=== PATIENT | female | born 1955 | race Caucasian/White ===

== ENCOUNTER 2024-12-25 03:57 | Inpatient (IN) | payer MEDICARE, SELFPAY ==
--- OUTSIDE RECORDS SUMMARY | 2023-11-01 03:00 | XMS_ITS ---
Author Organization [facility] Address [address] [place] [address] Care Team Providers Care Cnc Machinist Name Role Phone Nicola James DO Primary Care Provider Unavailab Colten Jones Unavailable [phone] REASON FOR VISIT B/L SIJ and Piriformis [place] PT Encounters Encounter Location Date Provider Diagnosis [facility] [address] [place] [place] [phone] 11/01/2023 Colten Byrne Plan Of Treatment No Information Progress Notes * MARIA GUADALUPE RONDON RDOB:[birth year] (69 yo F)Acc No.[id number]:11/01/2023 Patient:?NELA MARIA GUADALUPE Jamie :?Colten Byrne MDDOB:1955???Age:67 Y???Sex: FemaleDate:4Phone:[phone]:[address], [address], [place], [id number]:Nicola James DO * Images: * Electronic signature of Colten Byrne MD on 12/30/2024 at 12:40 PM ESTSign off status: Pending * Provider: Ramsey Byrne MD Date: 0 11/01/2023 Generated for Printing/Faxing/eTransmitting on:?12/30/2024 12:40 PM EST
--- OUTSIDE RECORDS SUMMARY | 2023-11-01 04:00 | XMS_ITS ---
Author Organization [facility] Address [address] [place] [address] Care Team Providers Care Family Practice Doctor Name Role Phone Nicola James DO Primary Care Provider Unavailab Colten Jones Unavailable [phone] REASON FOR VISIT B/L SIJ and Piriformis [place] PT Encounters Encounter Location Date Provider Diagnosis [facility] [address] [place] [phone] 11/01/2023 Colten Byrne Plan Of Treatment No Information Progress Notes * RONDON MARIA GUADALUPE RDOB:[birth year] (69 yo F)Acc No.[id number]:11/01/2023 Patient:?MARIA GUADALUPE RONDON :?Colten Byrne MDDOB:1955???Age:67 Y???Sex: FemaleDate:4Phone:[phone]:[address], [address], [place], [id number]:Nicola James DO * Images: * Electronic signature of Colten Byrne MD on 12/25/2024 at 02:48 AM EDTSign off status: Pending * Provider: Ramsey Byrne MD Date: 0 11/01/2023 Generated for Printing/Faxing/eTransmitting on:?12/25/2024 02:48 AM EDT
--- OUTSIDE RECORDS SUMMARY | 2024-12-15 15:08 | XMS_ITS | Encounter Summary ---
Author Organization [facility] Address [address] [facility], [address] [place] [address] Care Team Providers Care Box Printer Name Role Phone ErikaNicola mcclure DO Primary Care Provider [phone] Encounter Details DateTypeDepartmentCare Team (Latest Contact Info)Ovmenryasto77/21/2025 3:08 PM EDT - 12/15/2024 11:59 PM EDTHospital Encounter [address] [phone] Discharge Disposition: Home or Self Care Social History Tobacco UseTypesPacks/DayYears UsedDateSmoking Tobacco: NeverSmokeless Tobacco: NeverAlcohol UseStandard Drinks/WeekCommentsNever0 (1 standard drink = 0.6 oz pure alcohol)AUDIT-CAnswerDate RecordedQ1: How often do you have a drink containing alcohol?Never01/26/2024Q2: How many drinks containing alcohol do you have on a typical day when you are drinking?Patient does not drink01/26/2024Q3: How often do you have six or more drinks on one occasion?Never01/26/2024Overall Financial Resource Strain (CARDIA)AnswerDate RecordedHow hard is it for you to pay for the very basics like food, housing, medical care, and heating?Not hard at all11/13/2023HQ-2AnswerDate RecordedPHQ-9 Total Lxwwg342PRAPARE - TransportationAnswerDate RecordedIn the past 12 months, has lack of transportation kept you from medical appointments or from getting medications?No 09/15/2024In the past 12 months, has lack of transportation kept you from meetings, work, or from getting things needed for daily living?No09/15/2024 Housing Stability Vital SignAnswerDate RecordedUnable to Pay for Housing in the Last YearNot on file06/07/2022Number of Places Lived in the Last YearNot on file 06/07/2022In the last 12 months, was there a time when you did not have a steady place to sleep or slept in [place] (including now)?No06/07/2022Housing Stability Vital SignAnswerDate RecordedIn the last 12 months, was there a time when you were not able to pay the mortgage or rent on time?No12/04/2024In the past 12 months, how many times have you moved where you were living? At any time in the past 12 months, were you homeless or living in a long term (including now)?No12/04/2024UDIT-CAnswerDate RecordedQ1: How often do you have a drink containing alcohol?Never12/04/2024verage Number of DrinksNot on file 12/04/2024Frequency of Binge DrinkingNot on file12/04/2024Hunger Vital Sign AnswerDate RecordedWithin the past 12 months, you worried that your food would run out before you got the money to buymore.Never true12/04/2024Within the past 12 months, the food you bought just didn't last and you didn't have money to get more.Never true12/04/2024PRAPARE - TransportationAnswerDate RecordedIn the past 12 months, has lack of transportation kept you from medical appointments or from getting medications?No12/04/2024In the past 12 months, has lack of transportation kept you from meetings, work, or from getting things needed for daily living?No12/04/2024HC UtilitiesAnswerDate RecordedIn the past 12 months has the electric, gas, oil, or water company threatened to shut off services in your home?No12/04/2024Interpersonal Safety Domain Source: IP Abuse Screening AnswerDate RecordedPhysical hexcqWnlkhj22/10/2025Verbal obiquFuwvjj63/10/2025 Emotional bkjkxIaakib46/10/2025Financial usiuiJonzao21/10/2025Sexual abuseDenies 12/04/2024CommentsNoSex and Gender InformationValueDate RecordedSex Assigned at BirthNot on fileLegal FuhWqsrya03/10/2013 6:14 PM ESTGender Identity Not on fileSexual OrientationNot on filedocumented as of this encounter Medications at Time of Discharge MedicationSigDispense QuantityRefillsLast FilledStart DateEnd Date ENTRESTO 49-51 MG per tablet TAKE 1 TABLET BY MOUTH 2 TIMES A DAY 180 tablet gabapentin (NEURONTIN) 600 MG tablet Indications:Neuropathic painTAKE 1 AND 1/2 TABLETS BY MOUTH 3 TIMES A DAY 405 tablet metoprolol succinate (TOPROL XL) 50 MG extended release tablet Take 1 tablet by mouth daily 30 tablet Melatonin 10 MG TABS Take 5 mg by mouth at bedtime albuterol sulfate HFA (VENTOLIN HFA) 108 (90 Base) MCG/ACT inhaler Inhale 2 puffs into the lungs 4 times daily as needed for Wheezing 18 g 11/27/2024 furosemide (LASIX) 20 MG tablet Take 1 tablet by mouth daily 60 tablet triamcinolone (KENALOG) 0.1 % ointment Apply topically 2 times daily as needed (rash)10/21/2024 acetaminophen (TYLENOL) 325 MG tablet Take 2 tablets by mouth every 6 hours as needed for Pain Nebulizers (COMPRESSOR/NEBULIZER) MISC Indications:COPD mixed type (HCC)Nebulizer machine 1 each 11/01/2024 primidone (MYSOLINE) 50 MG tablet Take 1 tablet by mouth nightly 90 tablet omeprazole (PRILOSEC) 40 MG delayed release capsule TAKE 1 CAPSULE BY MOUTH EVERY MORNING BEFORE BREAKFAST 90 capsule aspirin 81 MG EC tablet Take 1 tablet by mouth daily Per cue selector per pt Schuyler-3 Fatty Acids (OCEAN BLUE MINICAPS OMEGA-3 PO) Take by mouth daily loratadine (CLARITIN) 10 MG tablet TAKE 1 TABLET BY MOUTH EVERY DAY 90 tablet pravastatin (PRAVACHOL) 20 MG tablet TAKE 1 TABLET BY MOUTH EVERY DAY 90 tablet hydrocortisone (CORTEF) 10 MG tablet take double dose of your steroids (20 mg in the morning and 10 mg in the afternoon) for 4 more days, and then resume your usual dose after 60 tablet 01/29/2024 vitamin D 25 MCG (1000 UT) CAPS Take 1 capsule by mouth daily NONFORMULARY Pt states to take 1 Eldeberry chew gummy daily. levothyroxine (SYNTHROID) 175 MCG tablet Indications:2 tabs on saturdayTake 1 tablet by mouth Daily Indications: 2 tabs on saturday B COMPLEX VITAMINS PO Take 1 tablet by mouth daily hydroxychloroquine (PLAQUENIL) 200 MG tablet Take by mouth 2 times daily tacrolimus (PROTOPIC) 0.1 % ointment Indications:saturday through saturdayApply topically 2 times daily Indications: saturday through saturday Apply topically 2 times daily. Uses as needed LORazepam (ATIVAN) 0.5 MG tablet Indications:RUFUS (generalized anxiety disorder)Take 1 tablet by mouth every 6 hours as needed for Anxiety for up to 7 days. Max Daily Amount: 2 mg 28 tablet ipratropium 0.5 mg-albuterol 2.5 mg (DUONEB) 0.5-2.5 (3) MG/3ML SOLN nebulizer solution Indications:Shortness of breathInhale 3 mLs into the lungs 4 times daily 360 mL empagliflozin (JARDIANCE) 10 MG tablet Take 1 tablet by mouth daily 30 tablet diclofenac (VOLTAREN) 75 MG EC tablet TAKE 1 TABLET BY MOUTH 2 TIMES A DAY 180 tablet documented as of this encounter Plan of Treatment DateTypeDepartmentCare Team (Latest Contact Info)Srqlkxsvdri36/13/2025 2:45 PM ESTOffice Visit [facility] Part of [address] [phone] Steven Porter, ADULT DAY CARE WORKER - DIRECTOR OF STRATEGY & MOBILE [address] [place] [address] hosp f/u Covid/ COPD01/11/2025 10:00 AM ESTPharmacy Visit [facility] Medication Management [address] [place] [phone] CHF - Stopped Spironolactone Changed to Toprol 50 mg BID01/29/2025 12:20 PM EST Office Visit [facility] [place] [phone] Nicola James [address] [address] 4-6 wkdocumented as of this encounter Procedures Procedure NamePriorityDate/TimeAssociated DiagnosisCommentsCBC WITH AUTO NVGDMJRQBOGXJmqjhwe05/21/2025 1:00 PM EDT BASIC METABOLIC GODVQXizbwry78/21/2025 1:00 PM EDT documented in this encounter Results * (ABNORMAL) CBC with Auto Differential (12/15/2024 1:00 PM EDT)ComponentValue Ref RangeTest MethodAnalysis TimePerformed AtPathologist SignatureWBC6.23.5 - 11.3 k/uL12/15/2024 1:00 PM [facility] LABRBC5.063.95 - 5.11 m/uL12/15/2024 1:00 PM [facility] GKAFgxxtyppes98.8 11.9 - 15.1 g/dL12/15/2024 1:00 PM [facility] Lgvxsvlgzd07.736.3 - 47.1 %12/15/2024 1:00 PM [facility] UEKRIN29.382.6 - 102.9 fL12/15/2024 1:00 PM [facility] SIOSEX41.225.2 - 33.5 pg12/15/2024 1:00 PM [facility] MCHC32.428.4 - 34.8 g/dL12/15/2024 1:00 PM [facility] RDW14.5(H)11.8 - 14.4 %12/15/2024 1:00 PM [facility] Gxosvnsnf779985 - 453 k/uL12/15/2024 1:00 PM [facility] OEPLRA61.18.1 - 13.5 fL12/15/2024 1:00 PM [facility] NRBC Automated0.00.0 per 100 WBC12/15/2024 1:00 PM [facility] LABNeutrophils %68(H)36 - 65 %12/15/2024 1:00 PM [facility] LABLymphocytes %15(L)24 - 43 %12/15/2024 1:00 PM [facility] LABMonocytes %113 - 12 %12/15/2024 1:00 PM [facility] LABEosinophils %5(H)1 - 4 %12/15/2024 1:00 PM [facility] LABBasophils %10 - 2 %12/15/2024 1:00 PM [facility] LABImmature Granulocytes %00 %12/15/2024 1:00 PM [facility] LABNeutrophils Absolute4.171.50 - 8.10 k/uL 12/15/2024 1:00 PM [facility] LABLymphocytes Absolute0.95 (L)1.10 - 3.70 k/uL12/15/2024 1:00 PM [facility] Monocytes Absolute0.660.10 - 1.20 k/uL12/15/2024 1:00 PM [facility] LABEosinophils Absolute0.300.00 - 0.44 k/uL12/15/2024 1:00 PM [facility] LABBasophils Absolute0.070.00 - 0.20 k/uL 12/15/2024 1:00 PM [facility] LABImmature Granulocytes Absolute<0.030.00 - 0.30 k/uL12/15/2024 1:00 PM [facility] LABSpecimen (Source)Anatomical Location / LateralityCollection Method / VolumeCollection TimeReceived Time12/15/2024 1:00 PM EDT1 3:11 PM EDT Narrative Authorizing ProviderResult TypeResult StatusTroy [place] DOHEMATOLOGY ORDERABLES Final ResultPerforming OrganizationAddressCity/State/ZIP CodePhone Number [facility] [address] [phone] * (ABNORMAL) Basic Metabolic Panel (12/15/2024 1:00 PM EDT)ComponentValueRef RangeTest MethodAnalysis TimePerformed AtPathologist SblrgezifGxlctz019830 - 145 mmol/L1 1:00 PM [facility] LABPotassium4.0 3.7 - 5.3 mmol/L1 1:00 PM [facility] LABChloride 96(L)98 - 107 mmol/L1 1:00 PM [facility] LABCO2 34(H)20 - 31 mmol/L1 1:00 PM [facility] LABAnion Gap99 - 16 mmol/L1 1:00 PM [facility] LABGlucose 141(H)74 - 99 mg/dL12/15/2024 1:00 PM [facility] IQWKWB35 - 23 mg/dL12/15/2024 1:00 PM [facility] LABCreatinine0.7 0.50 - 0.90 mg/dL12/15/2024 1:00 PM [facility] Sheri Magallon Filt Rate>90>60 mL/min/1.18g31512/15/2024 1:00 PM [facility] LABComment: ? These results are not intended for use in patients <18 years of age. ? eGFR results are calculated without a race factor using the 2020 CKD-EPI equation. Careful clinical correlation is recommended, particularly when comparing to results calculated using previous equations. The CKD-EPI equation is less accurate in patients with extremes of muscle mass, extra-renal metabolism of creatine, excessive creatine ingestion, or following therapy that affects renal tubular secretion. BUN/Creatinine Oclhe546 - 1:00 PM [facility] LABCalcium9.98.6 - 10.4 mg/dL12/15/2024 1:00 PM [facility] LABSpecimen (Source)Anatomical Location / LateralityCollection Method / Volume Collection TimeReceived Time12/15/2024 1:00 PM EDT1 3:11 PM EDT Narrative Authorizing ProviderResult TypeResult StatusTroy Erika DOCHEMISTRY ORDERABLES Final ResultPerforming OrganizationAddressCity/State/ZIP CodePhone Number [facility] [address] [phone] documented in this encounter Visit Diagnoses Not on filedocumented in this encounter Additional Health Concerns InfectionOnset DateLast IndicatedResolved TimeCOVID-19112/17/2024 9:26 PM EDTAssessmentNoted TimeA fall risk assessment has been completed for the afwebnf8211/13/2023 6:59 AM EDTdocumented as of this encounter Care Teams Team MemberRelationshipSpecialtyStart DateEnd Date Nicola James DO [address] [place] [address] PCP - GeneralFamily Medicine11/12/23documented as of this encounter
--- OUTSIDE RECORDS SUMMARY | 2024-12-18 12:20 | XMS_ITS | Encounter Summary ---
Author Organization [facility] Address [address] [facility] [address], [address] [place] [address] Care Team Providers Care Train Attendant Name Role Phone Nicola James DO Primary Care Provider [phone] Reason for Referral * Medication Prior Authorization - AuthorizedSpecialtyDiagnoses / Procedures Referred By ContactReferred To Contact Diagnoses Anxiety Nicola James DO [address] [place] [address] Phone: tel: fax: Referral IDStatusReasonStart DateExpiration DateVisits RequestedVisits [id number]/27/202510/27/202611 Reason for Visit * ReasonCommentsFollow-up Encounter Details DateTypeDepartmentCare Team (Latest Contact Info)Suezfosxtwy96/24/2025 12:20 PM EDTOffice Visit [facility] at [address] [address] [place], [place], DO [address] [place] [address] Anxiety (Primary Dx) Social History Tobacco UseTypesPacks/DayYears UsedDateSmoking Tobacco: NeverSmokeless Tobacco: Never Tobacco Cessation:Counseling Given: Yes Alcohol UseStandard Drinks/WeekCommentsNever0 (1 standard drink = 0.6 [...] housing, medical care, and heating?Not hard at all 11/13/2023HQ-2AnswerDate RecordedPHQ-9 Total Lnxxn256PRAPARE - TransportationAnswerDate RecordedIn the past 12 months, [...] steady place to sleep or slept in [facility] (including now)?No06/07/2022Housing Stability Vital SignAnswerDate RecordedIn the last 12 months, was there a time when you were not able to pay the mortgage or rent on time?No12/04/2024In the past 12 months, how many times have you moved where you were living? At any time in the past 12 months, were you homeless or living in a jail (including now)?No12/04/2024UDIT-CAnswerDate RecordedQ1: How often do you [...] RecordedIn the past 12 months has the [place], gas, oil, or water company threatened to shut off services in your home?No12/04/2024Interpersonal Safety Domain Source: IP Abuse Screening AnswerDate RecordedPhysical pkrfxFixdwm79/10/2025Verbal hucnjUicdjq72/10/2025 Emotional eqxelDovfpz60/10/2025Financial irvyyCislpk72/10/2025Sexual abuseDenies 12/04/2024CommentsNoSex and Gender InformationValueDate RecordedSex Assigned at BirthNot on fileLegal JwxPbivgk55/10/2013 6:14 PM ESTGender Identity Not on fileSexual OrientationNot on filedocumented as of this encounter Last Filed Vital Signs Vital SignReadingTime TakenCommentsBlood Jlovumaa319/6512/18/2024 12:11 PM EDT Jbgfj85123/24/2025 12:11 PM EDTTemperature--Respiratory Rate--Oxygen Saturation 92%12/18/2024 12:11 PM EDTInhaled Oxygen Concentration--Weight--Height--Body Mass Index--documented in this encounter Plan of Treatment DateTypeDepartmentCare Team (Latest Contact Info)Gumcluapjpx53/13/2025 2:45 PM ESTOffice Visit [facility] Part of [address] [address] Steven Porter, NUTRITION EDUCATOR - IT SOLUTIONS ARCHITECT [address] [place] [phone] hosp f/u Covid/ COPD01/11/2025 10:00 AM ESTPharmacy Visit [facility] Medication Management [address] [place] [phone] CHF - Stopped Spironolactone Changed to Toprol 50 mg BID01/29/2025 12:20 PM EST Office Visit [facility] Providers at [address] [address] Nicola James DO [address] [place] [address] 4-6 wkdocumented as of this encounter Visit Diagnoses Diagnosis Anxiety- Primary Anxiety state, unspecified documented in this encounter Additional Health Concerns AssessmentNoted TimeA fall risk assessment has been completed for the patient 11/13/2023 6:59 AM EDTdocumented as of this encounter Care Teams Team MemberRelationshipSpecialtyStart DateEnd Date Nicola James DO [address] [place] [address] PCP - GeneralFamily Medicine11/12/23documented as of this encounter
[2024-12-25] VITALS (19 sets, daily range): BP systolic 128–186; BP diastolic 60–81; PULSE 61–107; TEMP 36.3–36.6; O2SAT 76–97; BMI 39.1; BMI 39.6
--- OUTSIDE RECORDS SUMMARY | 2024-12-25 02:20 | XMS_ITS | Encounter Summary ---
Author Organization [facility] Address [address] [facility] [address], [address] [place] [address] Care Team Providers Care Silica Spray Mixer Name Role Phone ErikaNicola mcclure DO Primary Care Provider [phone] Reason for Visit * ReasonCommentsShortness of BreathPatient presents to ER via squad for shortness of breath. Patient states she was recently diagnosedwith covid and started home oxygen at 1L last week. Patient states her shortness of breath is getting worse today. Encounter Details DateTypeDepartmentCare Team (Latest Contact Info)Gpgrbexvphk82/31/2025 2:20 AM EDT - 12/25/2024 3:21 AM EDTEmercarlyn Mariola [facility] [address] [place], [place] [phone] Aron Goodman MD [address] [place] [address] Dyspnea, unspecified type (Primary Dx) Discharge Disposition: Home or Self Care Social [...] and heating?Not hard at all11/13/2023HQ-2AnswerDate RecordedPHQ-9 Total Vhyss217PRAPARE - TransportationAnswerDate RecordedIn the past 12 months, [...] steady place to sleep or slept in [place] (including now)?No06/07/2022Housing Stability Vital SignAnswerDate RecordedIn the last 12 months, was there a time when you were not able to pay the mortgage or rent on time?No12/04/2024In the past 12 months, how many times have you moved where you were living? At any time in the past 12 months, were you homeless or living in a mcfp (including now)?No12/04/2024UDIT-CAnswerDate RecordedQ1: How often do you have a drink containing alcohol?Never12/25/2024Q2: How many drinks containing alcohol do you have on a typical day when you are drinking?Patient does not drink 12/25/2024Q3: How often do you have six or more drinks on one occasion?Never 12/25/2024Hunger Vital SignAnswerDate RecordedWithin the past 12 months, you worried that your food would run out before you got the money to buymore.Never true12/04/2024Within the past 12 months, the food you bought just didn't last and you didn't have money to get more.Never true12/04/2024PRAPARE - TransportationAnswerDate RecordedIn the past 12 months, has lack of transportation kept you from medical appointments or from getting medications?No 12/04/2024In the past 12 months, has lack of transportation kept you from meetings, work, or from getting things needed for daily living?No12/04/2024HC UtilitiesAnswerDate RecordedIn the past 12 months has the electric, gas, oil, or water company threatened to shut off services in your home?No12/04/2024 Interpersonal Safety Domain Source: IP Abuse ScreeningAnswerDate Recorded Physical qervtIdehmd45/31/2025Verbal ehncmEkzdzm66/31/2025Emotional abuseDenies 12/25/2024Financial sjovpFcnwbj30/31/2025Sexual kbsvjSruqfu70/31/2025 CommentsNoSex and Gender InformationValueDate RecordedSex Assigned at BirthNot on fileLegal ZksHljjib82/10/2013 6:14 PM ESTGender IdentityNot on fileSexual OrientationNot on filedocumented as of this encounter Last Filed Vital Signs Vital SignReadingTime TakenCommentsBlood Rzkptfmi965/8937612/25/2024 2:45 AM EDT Dzhyg243512/25/2024 2:45 AM VHGCubepivfbjk23 ??C (98.6 ??F)12/25/2024 2:28 AM EDT Respiratory Plfm271312/25/2024 2:45 AM EDTOxygen Mealflqkjo51%12/25/2024 2:45 AM EDTInhaled Oxygen Concentration--Uxvgzw31.1 kg (214 lb)12/25/2024 2:28 AM EDT Mrpihl717.5 cm (5' 2 )12/25/2024 2:28 AM EDTBody Mass Index39.141 2:28 AM EDTdocumented in this encounter Functional Status documented as of this encounter Discharge Instructions * Attachments The following attachments cannot be sent through Care Everywhere. * SOB (Shortness of Breath) (Trinidadian) documented in this encounter Medications at Time of Discharge MedicationSigDispense QuantityRefillsLast FilledStart DateEnd Date ipratropium 0.5 mg-albuterol 2.5 mg (DUONEB) 0.5-2.5 (3) MG/3ML SOLN nebulizer solution Indications:Shortness of breathINHALE 3 MILLILITERS VIA NEBULIZATION BY MOUTH 4 TIMES A DAY 360 mL hydrOXYzine HCl (ATARAX) 25 MG tablet Indications:AnxietyTake 1 tablet by mouth every 8 hours as needed for Anxiety 30 tablet escitalopram (LEXAPRO) 10 MG tablet Take 1 tablet by mouth daily 30 tablet ENTRESTO 49-51 MG per tablet TAKE 1 [...] hours as needed for Pain Nebulizers (COMPRESSOR/NEBULIZER) [facility] [place]:COPD mixed type (HCC)Nebulizer machine 1 each 11/01/2024 primidone (MYSOLINE) 50 MG tablet Take 1 tablet by mouth nightly 90 tablet omeprazole (PRILOSEC) 40 MG delayed release capsule TAKE 1 CAPSULE BY MOUTH EVERY MORNING BEFORE BREAKFAST 90 capsule aspirin 81 MG EC tablet Take 1 tablet by mouth daily Per addictions counselor per pt [place]-3 Fatty Acids (OCEAN BLUE MINICAPS OMEGA-3 PO) [...] Apply topically 2 times daily. Uses as neededdocumented as of this encounter Progress Notes * Noy Azul RN - 12/25/2024 3:17 AM EDT When daughter arrived with patient's home O2 the law writer noted that the daughter had brought the patient's nebulizer. Card Cleaner placed patient back up to the O2 in the room. Family asked the patient if she would be able to go to another hospital without her oxygen or back to her home; the patient stated that she needed her oxygen. Card Cleaner stepped out of room to assist with another patient and when returned to the room family had taken patient out of the department. * Noy Azul RN - 12/25/2024 2:49 AM EDT Pt's sons came to nurse's station and stated that they wanted the paperwork to have their mother discharged because this was her fifth time coming to the ER and they were not getting any answers. Stated that the patient was not getting any treatment. Sons were informed that orders were pending. * Noy Azul RN - 12/25/2024 2:35 AM EDT Pt arrived by squad, EKG and labs obtained, Pt placed on 3L NC, COVID/Flu swabs obtained as well. documented in this encounter Plan of Treatment DateTypeDepartmentCare Team (Latest Contact Info)Jllxfosivug67/13/2025 2:45 PM ESTOffice Visit [facility] Part of [address] [phone] Steven Porter, WAREHOUSE ORDER SELECTOR - HEAD MVA REACTOR OPERATOR [address] [place] [address] hosp f/u Covid/ COPD01/11/2025 10:00 AM ESTPharmacy Visit [facility] Med[facility] Management [address] [place] [phone] CHF - Stopped Spironolactone Changed to Toprol 50 mg BID01/29/2025 12:20 PM EST Office Visit [facility] [place] [address] Nicola James DO [address] [place] [phone] wkNameTypePriorityAssociated DiagnosesDate/TimeEKG 12 Lead (SOB)ECGSTAT 12/25/2024 2:25 AM EDTNameTypePriorityAssociated DiagnosesOrder ScheduleTroponin LabSTATNow Then Every 2hr for 2 Occurrences starting 12/25/2024 until 12/25/2024, 1 completedUrinalysisLabSTATOne Time for 1 Occurrences starting 12/25/2024 until 12/25/2024documented as of this encounter Procedures Procedure NamePriorityDate/TimeAssociated DiagnosisCommentsCOVID-19, RAPIDSTAT 12/25/2024 2:35 AM EDT RAPID INFLUENZA A/B UUUSQAFDISGP17/31/2025 2:35 AM EDT EKG 12-VVRPQRKR93/31/2025 2:25 AM EDT Procedure Note - Result, Unknown Provider - 12/25/2024 2:25 AM EDT This note is in progress. Normal sinus rhythm Left axis deviation Left bundle branch block Abnormal ECG When compared with ECG of 03-Dec-2024 21:48, Vent. rate has decreased by 45 bpm Nonspecific T wave abnormality now evident in Anterior leads CBC WITH AUTO PQOKNQQRRUTHMSTZ69/31/2025 2:21 AM EDT UKGIWRPZWZGK36/31/2025 2:21 AM EDT GKRDZJO3712/25/2024 2:21 AM EDT BRAIN NATRIURETIC BGQEHSUNMVO24/31/2025 2:21 AM EDT XAICZIDMNQYBM68/31/2025 2:21 AM EDT BASIC METABOLIC CUUJAGFAM35/31/2025 2:21 AM EDT documented in this encounter Results * Rapid influenza A/B antigens (12/25/2024 2:35 AM EDT)ComponentValueRef Range Test MethodAnalysis TimePerformed AtPathologist SignatureFlu A AntigenNEGATIVE NIKMPORY76/31/2025 2:35 AM [facility] LABComment:for Influenza A AntigenFlu B OvohqrlKFPYYMBSUJDFGHHS99/31/2025 2:35 AM [facility] LABComment:for Influenza B Antigen.Specimen (Source) Anatomical Location / LateralityCollection Method / VolumeCollection Time Received TimeANTERIOR NARES SWAB / Zogfqal1612/25/2024 2:35 AM EDT1 2:39 AM EDT Narrative Authorizing ProviderResult TypeResult StatusAron Goodman MDMICROBIOLOGY - GENERAL ORDERABLESFinal ResultPerforming OrganizationAddressCity/State/ZIP CodePhone Number [facility] [address] [phone] * COVID-19, Rapid (12/25/2024 2:35 AM EDT)ComponentValueRef RangeTest Method Analysis TimePerformed AtPathologist SignatureSpecimen Description .NASOPHARYNGEAL SWAB12/25/2024 2:35 AM [facility] SARS-CoV-2, RapidNot DetectedNot Krjyxgvx83/31/2025 2:35 AM [facility] LABComment: ? Rapid NAAT: ??The specimen is NEGATIVE for SARS-CoV-2, the novel coronavirus associated with COVID-19. ? The ID NOW COVID-19 assay is designed to detect the virus that causes COVID-19 in patients with signs and symptoms of infection who are suspected of COVID-19. An individual without symptoms of COVID-19 and who is not shedding SARS-CoV-2 virus would expect to have a negative (not detected) result in this assay. Negative results should be treated as presumptive and, if inconsistent with clinical signs and symptoms or necessary for patient management, should be tested with an alternative molecular assay. Negative results do not preclude SARS-CoV-2 infection and should not be used as the sole basis for patient management decisions. ? Methodology: Isothermal Nucleic Acid Amplification Specimen (Source)Anatomical Location / LateralityCollection Method / Volume Collection TimeReceived TimeNASOPHARYNGEAL SWAB / Aopjgic5012/25/2024 2:35 AM EDT 12/25/2024 2:39 AM EDT Narrative Authorizing ProviderResult TypeResult StatusAron Goodman MDMICROBIOLOGY - GENERAL ORDERABLESFinal ResultPerforming OrganizationAddressCity/State/ZIP CodePhone Number [facility] [address] [place] [address] [phone] * TSH (12/25/2024 2:21 AM EDT)ComponentValueRef RangeTest MethodAnalysis Time Performed AtPathologist SignatureTSH1.260.27 - 4.20 uIU/mL12/25/2024 2:21 AM [facility] LABSpecimen (Source)Anatomical Location / LateralityCollection Method / VolumeCollection TimeReceived TimeBloodBLOOD SPECIMEN / Brjdwsi9212/25/2024 2:21 AM EDT1 2:32 AM EDT Narrative Authorizing ProviderResult TypeResult Marysonny Maxine MDCHEMISTRY ORDERABLES Final ResultPerforming OrganizationAddressCity/State/ZIP CodePhone Number [facility] [address] [place] [address] * (ABNORMAL) Brain Natriuretic Peptide (12/25/2024 2:21 AM EDT)ComponentValueRef RangeTest MethodAnalysis TimePerformed AtPathologist SignatureNT Pro-BNP1,311 (H)0 - 125 pg/mL12/25/2024 2:21 AM [facility] LABSpecimen (Source)Anatomical Location / LateralityCollection Method / VolumeCollection TimeReceived TimeBloodBLOOD SPECIMEN / Ttjiuyx1812/25/2024 2:21 AM EDT1 2:32 AM EDT Narrative Authorizing ProviderResult TypeResult Jarrett Goodman MDCHEMISTRY ORDERABLES Final ResultPerforming OrganizationAddressCity/State/ZIP CodePhone Number [facility] [address] [place] [address] * (ABNORMAL) BMP (12/25/2024 2:21 AM EDT)ComponentValueRef RangeTest Method Analysis TimePerformed AtPathologist QgfcxluigIonecb924(L)136 - 145 mmol/L 12/25/2024 2:21 AM [facility] LABPotassium3.73.7 - 5.3 mmol/L1 2:21 AM [facility] ILISmmcfqaf57(L)98 - 107 mmol/L1 2:21 AM [facility] PSWEH864(H)20 - 31 mmol/L1 2:21 AM [facility] LABAnion Gap7(L)9 - 16 mmol/L1 2:21 AM [facility] UDKQdrccmf770(H) 74 - 99 mg/dL12/25/2024 2:21 AM [facility] DWBYNX263 - 23 mg/dL12/25/2024 2:21 AM [facility] LABCreatinine0.50.50 - 0.90 mg/dL12/25/2024 2:21 AM [facility] LABEst, Glom Filt Rate>90>60 mL/min/1.44f30812/25/2024 2:21 AM [facility] Comment: ? These results are not intended for [...] therapy that affects renal tubular secretion. BUN/Creatinine Zsjqn337 - 2:21 AM [facility] LABCalcium9.68.6 - 10.4 mg/dL12/25/2024 2:21 AM [facility] LABSpecimen (Source)Anatomical Location / LateralityCollection Method / Volume Collection TimeReceived TimeBloodBLOOD SPECIMEN / Ymkoart7412/25/2024 2:21 AM EDT 12/25/2024 2:32 AM EDT Narrative Authorizing ProviderResult TypeResult StatusAron Goodman MDCHEMISTRY ORDERABLES Final ResultPerforming OrganizationAddressCity/State/ZIP CodePhone Number [facility] [address] [place] [address], [facility] [phone] * (ABNORMAL) CBC with Auto Differential (12/25/2024 2:21 AM EDT)ComponentValue Ref RangeTest MethodAnalysis TimePerformed AtPathologist SignatureWBC7.73.5 - 11.3 k/uL12/25/2024 2:21 AM [facility] LABRBC5.35(H)3.95 - 5.11 m/uL12/25/2024 2:21 AM [facility] LABHemoglobin 15.8(H)11.9 - 15.1 g/dL12/25/2024 2:21 AM [facility] Dsfwugsbiz98.836.3 - 47.1 %12/25/2024 2:21 AM [facility] KXSKHX02.582.6 - 102.9 fL12/25/2024 2:21 AM [facility] JYTPAH00.525.2 - 33.5 pg12/25/2024 2:21 AM [facility] MCHC33.828.4 - 34.8 g/dL12/25/2024 2:21 AM [facility] RDW13.311.8 - 14.4 %12/25/2024 2:21 AM [facility] Osyjdwnrg286424 - 453 k/uL12/25/2024 2:21 AM [facility] LABMPV9.78.1 - 13.5 fL12/25/2024 2:21 AM [facility] NRBC Automated0.00.0 per 100 WBC12/25/2024 2:21 AM [facility] LABNeutrophils %5836 - 65 %12/25/2024 2:21 AM [facility] LABLymphocytes %23(L)24 - 43 %12/25/2024 2:21 AM [facility] LABMonocytes %113 - 12 %12/25/2024 2:21 AM [facility] LABEosinophils %6(H)1 - 4 %12/25/2024 2:21 AM [facility] LABBasophils %10 - 2 %12/25/2024 2:21 AM [facility] LABImmature Granulocytes %1(H)0 %12/25/2024 2:21 AM [facility] LABNeutrophils Absolute4.451.50 - 8.10 k/uL12/25/2024 2:21 AM [facility] LABLymphocytes Absolute1.801.10 - 3.70 k/uL12/25/2024 2:21 AM [facility] LABMonocytes Absolute 0.830.10 - 1.20 k/uL12/25/2024 2:21 AM [facility] Eosinophils Absolute0.47(H)0.00 - 0.44 k/uL12/25/2024 2:21 AM [facility] LABBasophils Absolute0.090.00 - 0.20 k/uL12/25/2024 2:21 AM [facility] LABImmature Granulocytes Absolute0.040.00 - 0.30 k/uL12/25/2024 2:21 AM [facility] LABSpecimen (Source)Anatomical Location / LateralityCollection Method / VolumeCollection TimeReceived TimeBloodBLOOD SPECIMEN / Wwmegiq4812/25/2024 2:21 AM EDT1 2:32 AM EDT Narrative Authorizing ProviderResult TypeResult Jarrett Goodman MDHEMATOLOGY ORDERABLES Final ResultPerforming OrganizationAddressCity/State/ZIP CodePhone Number [facility] [address] [place] [address] * Magnesium (12/25/2024 2:21 AM EDT)ComponentValueRef RangeTest MethodAnalysis TimePerformed AtPathologist SignatureMagnesium1.91.6 - 2.4 mg/dL12/25/2024 2:21 AM [facility] LABSpecimen (Source)Anatomical Location / LateralityCollection Method / VolumeCollection TimeReceived Time BloodBLOOD SPECIMEN / Hnflhez8112/25/2024 2:21 AM EDT1 2:32 AM EDT Narrative Authorizing ProviderResult TypeResult Jarrett Goodman MDCHEMISTRY ORDERABLES Final ResultPerforming OrganizationAddressCity/State/ZIP CodePhone Number [facility] [address] [place] [address] * (ABNORMAL) Troponin (12/25/2024 2:21 AM EDT)ComponentValueRef RangeTest Method Analysis TimePerformed AtPathologist SignatureTrannamaria, High Hgsabkzaqtg34(H)0 - 14 ng/L1 2:21 AM EDCLEVELAND [facility] LABComment:High Sensitivity Troponin values cannot be compared with other Troponin methodologies.Specimen (Source)Anatomical Location / LateralityCollection Method / VolumeCollection TimeReceived TimeBloodBLOOD SPECIMEN / Unknown 12/25/2024 2:21 AM EDT1 2:32 AM EDT Narrative Authorizing ProviderResult TypeResult StatusIlya Maxine MDCHEMISTRY ORDERABLES Final ResultPerforming OrganizationAddressCity/State/ZIP CodePhone Number [facility] [address] [place], [place] [address] [phone] documented in this encounter Visit Diagnoses Diagnosis Dyspnea, unspecified type- Primary documented in this encounter Additional Health Concerns InfectionOnset DateLast IndicatedResolved TimeCOVID-19 (Rule Out)12/25/2024 3:01 AM EDTAssessmentNoted TimeA fall risk assessment has been completed for the mceiycx1511/13/2023 6:59 AM EDTdocumented as of this encounter Care Teams Team MemberRelationshipSpecialtyStart DateEnd Date Nicola James DO [address] [place] [phone] PCP - GeneralFamily Medicine11/12/23documented as of this encounter
--- OUTSIDE RECORDS SUMMARY | 2024-12-25 04:35 | XMS_ITS | Encounter Summary ---
Author Organization [facility] Address [address], [address] [place] [address] Care Team Providers Care Clay Press Operator Name Role Phone [place]Nicola mcclure DO Primary Care Provider [phone] Encounter Details DateTypeDepartmentCare Team (Latest Contact Info)Hwikvpgbkgr04/31/2025Travel Social History Tobacco UseTypesPacks/DayYears UsedDateSmoking Tobacco: NeverSmokeless [...] and heating?Not hard at all11/13/2023HQ-2AnswerDate RecordedPHQ-9 Total Vykii184PRAPARE - TransportationAnswerDate RecordedIn the past 12 months, [...] steady place to sleep or slept in ashelter (including now)?No06/07/2022Housing Stability Vital SignAnswerDate RecordedIn the last 12 months, was there a time when you were not able to pay the mortgage or rent on time?No12/04/2024In the past 12 months, how many times have you moved where you were living? At any time in the past 12 months, were you homeless or living in a fdc (including now)?No12/04/2024UDIT-CAnswerDate RecordedQ1: How often do you [...] Domain Source: IP Abuse ScreeningAnswerDate Recorded Physical esjlmErulqv10/31/2025Verbal xegahVtkink43/31/2025Emotional abuseDenies 12/25/2024Financial rhbpvXzxvbf82/31/2025Sexual uoqaeSkeyaq22/31/2025 CommentsNoSex and Gender InformationValueDate RecordedSex Assigned at BirthNot on fileLegal FokIdkruq28/10/2013 6:14 PM ESTGender IdentityNot on fileSexual OrientationNot on filedocumented as of this encounter Functional Status documented as of this encounter Plan of Treatment DateTypeDepartmentCare Team (Latest Contact Info)Tcmpnhwpyxg36/13/2025 2:45 PM ESTOffice Visit [facility] Part of [address] [phone] Steven Porter, SOFTWARE APPLICATIONS ENGINEER - CURRENCY MACHINE OPERATOR [address] [place] [address] hosp f/u Covid/ COPD01/11/2025 10:00 AM ESTPharmacy Visit [facility] [address] [place] [phone] CHF - Stopped Spironolactone Changed to Toprol 50 mg BID01/29/2025 12:20 PM EST Office Visit [facility] [place] [address] Nicola James DO [address] [place] [phone] wkdocumented as of this encounter Visit Diagnoses Not on filedocumented in this encounter Additional Health Concerns InfectionOnset DateLast IndicatedResolved TimeCOVID-19 (Rule Out)12/25/2024 3:01 AM EDTAssessmentNoted TimeA fall risk assessment has been completed for the ljjebkk34/ 6:59 AM EDTdocumented as of this encounter Care Teams Team MemberRelationshipSpecialtyStart DateEnd Date Nicola James DO [address] [place] [phone] PCP - GeneralFamily Medicine11/12/23documented as of this encounter
--- NOTE | 2024-12-25 04:36 | ECG_ITS ---
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 Measurements Intervals [place] Rate: 61 P: 39 IN: 168 QRS: -56 QRSD: 162 T: 43 QT: 476 QTc: 480 Interpretive Statements 1100 Sinus rhythm 1470 with occasional supraventricular premature complexes 2550 Left bundle branch block 7200 Abnormal left axis deviation 9150 abnormal ECG No previous ECG available for comparison Electronically Signed On 12-25-2024 6:31:08 EDT by SELMA CARDOSO M.D.
--- OUTSIDE RECORDS SUMMARY | 2024-12-25 04:36 | XMS_ITS | Clinical Summary ---
Author Organization [facility] Address [address] [place] [address] Care Team Providers Care Post Adoption Coordinator Name Role Phone ErikaNicola mcclure Primary Care Provider + Allergies Active AllergyReactionsCriticalityNoted QxgsVadtpdjmCkgecxqkgcBavyn15/10/2018 Medications MedicationSigDispense QuantityRefillsLast FilledStart DateEnd DateStatus predniSONE (DELTASONE) 10 MG tablet Take 4 tabs QD for 5 days; 3 tabs QD for 5 days; 2 tabs QD for 5 days; 1 tab QD for 5 days; then 1 tab every other day til gone.. 55 tablet 06/11/2017Active Additional Information Patient not taking.Reported on 10/21/2024 predniSONE (DELTASONE) 20 MG tablet Take 2 tabs daily for 3 days; then 1 tab daily for 10 days; then 1 tab every other day for 20 days.. 26 tablet 07/16/2017Active lisinopril (PRINIVIL,ZESTRIL) 2.5 MG tablet 09/24/2017Active levothyroxine (SYNTHROID, LEVOTHROID) 150 MCG tablet 10/01/2017Active tacrolimus (PROTOPIC) 0.1 % ointment Apply BID Saturday through Fridays. . 100 g Active Additional Information Patient not taking.Reported on 10/21/2024 ketoconazole (NIZORAL) 2 % cream Apply topically 2 (two) times a day . 30 g 3Active Additional Information Patient not taking.Reported on 10/21/2024 Entresto 24-26 mg per tablet Take 1 (one) tablet by mouth 2 (two) times a day .4Active carvediloL (COREG) 3.125 MG tablet Take 1 (one) tablet (3.125 mg total) by mouth 2 (two) times a day .09/24/2023 Active aspirin 81 MG EC tablet Take 1 (one) tablet (81 mg total) by mouth daily .Active cholecalciferol, vitamin D3, 25 mcg (1,000 unit) capsule Take by mouth daily .Active diclofenac sodium (VOLTAREN) 75 MG EC tablet Take 1 (one) tablet (75 mg total) by mouth 2 (two) times a day .06/15/2014ctive dicyclomine (BENTYL) 20 mg tablet Take 1 (one) tablet (20 mg total) by mouth Three times daily as needed . 05/13/2024tive empagliflozin 10 mg Tab Take 1 (one) tablet (10 mg total) by mouth daily .09/19/2024tive ferrous sulfate 325 (65 FE) MG EC tablet Take 1 (one) tablet (325 mg total) by mouth 2 (two) times a day .02/07/2024 Active furosemide (LASIX) 40 MG tablet Take 0.5 (one-half) tablet (20 mg total) by mouth daily .01/05/2024ctive gabapentin (NEURONTIN) 600 MG tablet TAKE 1.5 TABLET BY MOUTH THREE TIMES A DAY06/28/2023ctive hydrocortisone (CORTEF) 10 MG tablet take double dose of your steroids (20 mg in the morning and 10 mg in the afternoon) for 4 more days, and then resume your usual dose after07/30/2023 Active metoprolol succinate (TOPROL-XL) 50 MG 24 hr tablet Take 1 (one) tablet (50 mg total) by mouth daily .10/19/2024tive omeprazole (PRILOSEC) 40 MG capsule Take 1 (one) capsule (40 mg total) by mouth every morning before breakfast . 02/07/2024ctive pravastatin (PRAVACHOL) 20 MG tablet Take 1 (one) tablet (20 mg total) by mouth daily .07/30/2023ctive primidone (MYSOLINE) 50 MG tablet Take 1 (one) tablet (50 mg total) by mouth nightly .07/30/2023ctive sacubitriL-valsartan (ENTRESTO) 49-51 mg per tablet Take 1 (one) tablet by mouth 2 (two) times a day .Active hydroxychloroquine (PLAQUENIL) 200 mg tablet Indications:Lichen planusTake 1 (one) tablet (200 mg total) by mouth 2 (two) times a day . 60 tablet 11010/21//ctive clobetasoL (TEMOVATE) 0.05 % scalp solution Apply topically daily . 50 mL /ctive triamcinolone (KENALOG) 0.1 % ointment Apply BID on Saturday and Saturday. . 454 g tive Active Problems No known active problems Encounters DateTypeDepartmentCare ZoglRkrdyzbjllw11/27/2025 10:00 AM EDTOffice Visit [facility] [place] [phone] Zaid Kramer Jr., Lichen planus (Primary Dx); [facility]inic sralpnqsb08/27/2025Travelfrom Last 3 Months Family History Medical HistoryRelationCommentsDiabetesMotherRelationStatusCommentsMother Social History Tobacco UseTypesPacks/DayYears UsedDateSmoking Tobacco: NeverSmokeless Tobacco: Never Tobacco Cessation:Counseling Given: Not Answered Alcohol UseStandard Drinks/WeekCommentsNo0 (1 standard drink = 0.6 oz pure alcohol)CommentsUnknownSex and Gender InformationValueDate RecordedSex Assigned at BirthNot on fileLegal MwoAxpinj91/05/2018 8:43 AM ESTGender Identity Seztoa5902/10/2018 8:39 AM ESTSexual NdtsvboxpcoBbafubtf35/17/2018 8:39 AM EST Plan of Treatment DateTypeDepartmentCare Team (Latest Contact Info)Feyefknnqwm83/27/2026 10:15 AM EDTOffice Visit [facility] [place] [phone] Zaid Kramer Jr., [address] [place] [address] Health MaintenanceDue DateLast DoneCommentsCT Vmjmwuibbqvo23/15/1955Fecal DNA 1954Depression Screening/Follow-Up (PHQ-2/9)1966Hepatitis C Aplqrltvg80/15/1973Flexible yyklzkdnwubyi89/15/2005Zoster Vaccines (2 of 3) Falls Risk Kbjgwisiqt67/15/2020Fecal occult blood test (FOBT,FIT)Medicare Wellness Visit409/06/2022, 09/01/2021OVID-19 Vaccine (1 - season)2024Influenza Vaccine (#1) 509/, 01/08/2023, 11/30/2021, Additional history existsMammogram , 12/05/2022, 02/04/2018, Additional history exists Tetanus/Diphtheria/Pertussis (3 - Td or Tdap)/, 12/07/1996 Hgclckimrei32Colorectal Cancer Screening/Qpuymwmxxq44/26/2029 Pneumococcal Vaccine: 50+ FnhxqMjrduuoxr38/31/2022Dexa ThehKjonjdprv42/07/2023 RSV QedfwnvuQnuwgrytd49/18/2024HIB VaccinesAged OutNo longer eligible based on patient's age to complete this topicHPV VaccinesAged OutNo longer eligible based on patient's age to complete this topicHepatitis A VaccinesAged OutNo longer eligible based on patient's age to complete this topicHepatitis B VaccinesAged OutNo longer eligible based on patient's age to complete this topicIPV Vaccines Aged OutNo longer eligible based on patient's age to complete this topic Meningococcal ACWY VaccineAged OutNo longer eligible based on patient's age to complete this topicMeningococcal B VaccineAged OutNo longer eligible based on patient's age to complete this topicRotavirus VaccinesAged OutNo longer eligible based on patient's age to complete this topic Insurance Care Teams Team MemberRelationshipSpecialtyStart DateEnd Date Nicola James DO [address] [place] [address] PCP - GeneralFamily Medicine09/25/18
--- OUTSIDE RECORDS SUMMARY | 2024-12-25 04:36 | XMS_ITS | Clinical Summary ---
Author Organization [facility] Address [address] [facility] [place] [address] Care Team Providers Care Manufacturing Baker Name Role Phone Nicola James MD Primary Care Provider [phone] Allergies Active AllergyReactionsCriticalityNoted DateCommentsAcetaminophenMedium 06/09/2014 Other Reaction(s): Other (See Comments) Cannot take due to history of Hepatitis EwyorolnyiHyvykXipmyz76/15/2015Oxycodone-AcetaminophenHives,ZemfFhx4001/20/2021 Peanut-Containing Drug FnegoitdWlmxrh56/20/2018 Other Reaction(s): Other (See Comments) Blisters in mouth Medications MedicationSigDispense QuantityRefillsLast FilledStart DateEnd DateStatus primidone (Mysoline) 50 MG tablet Take 50 mg by mouth at bedtimeActive pravastatin (Pravachol) 20 MG tablet Take 20 mg by mouth DailyActive loratadine (Claritin) 10 MG tablet Take 10 mg by mouth DailyActive lisinopril 10 MG tablet Take 10 mg by mouth DailyActive levothyroxine (Synthroid, Levoxyl) 175 MCG tablet Take 150 mcg by mouth Daily07/07/2023ctive isosorbide mononitrate ER (Imdur) 30 MG 24 hr tablet Take 30 mg by mouth DailyActive hydrocortisone (Cortef) 10 MG tablet Take 10 mg by mouth in the morning and 10 mg before bedtime.Active gabapentin (Neurontin) 600 MG tablet Take 600 mg by mouth in the morning and 600 mg in the evening and 600 mg before bedtime.06/28/2023ctive diclofenac (Voltaren) 75 MG EC tablet Take 1 tablet by mouth in the morning and 1 tablet before bedtime.06/21/2023 Active hydroxychloroquine (Plaquenil) 200 MG tablet Take 200 mg by mouth DailyActive aspirin 81 MG EC tablet Take 81 mg by mouth DailyActive sacubitril-valsartan (Entresto) 24-26 MG tablet Take 1 tablet by mouth in the morning and 1 tablet before bedtime.Active carvedilol (Coreg) 3.125 MG tablet Take by mouth in the morning and in the evening. Take with meals.Active furosemide (Lasix) 40 MG tablet Take 40 mg by mouth Daily01/05/2024ctive ferrous sulfate 325 (65 Fe) MG EC tablet Take 1 tablet by mouth in the morning and 1 tablet before bedtime.02/07/2024 Active omeprazole (PriLOSEC) [address] capsule Take 40 mg by mouth in the morning. Take before meals.02/07/2024ctive ondansetron ODT (Zofran-ODT) 4 MG disintegrating tablet Take 4 mg by mouth01/26/2024ctive promethazine (Phenergan) 25 MG tablet Take 12.5 mg by mouth01/21/2024ctive dicyclomine (Bentyl) 20 MG tablet Take 20 mg by mouth5Active Entresto 49-51 MG tablet 04/29/2024tive predniSONE (Deltasone) 10 MG tablet Indications:Low back pain, unspecified back pain laterality, unspecified chronicity, unspecified whether sciatica presentTake 5 tabs p.o. daily x3 days Take 4 tabs p.o. daily x3 days Take 3 tabs p.o. daily x3 days Take 2tabs p.o. daily x3 days Take 1 tab p.o. daily x3 days 45 tablet 5Active Active Problems ProblemNoted DateDiagnosed DatePrimary osteoarthritis of right knee01/25/2024 Acute postoperative pain of right knee01/25/2024Status post right knee fytdqhbimga10/30/2024ifficulty lzisrfp6901/25/2024 Family History Medical HistoryRelationNameCommentsDiabetesFatherHeart diseaseFatherHypertension FatherDiabetesFather's SisterHypertensionFather's SisterCancerMaternal GrandfatherStrokeMaternal GrandmotherDiabetesMotherHeart diseaseMother HypertensionMotherCancerMother's BrotherCancerMother's SisterDiabetesMother's SisterHeart diseaseMother's SisterHypertensionMother's SisterStrokeMother's SisterHeart diseasePaternal GrandfatherDiabetesPaternal GrandmotherCancerSon RelationNameStatusCommentsFatherDeceasedFather's SisterDeceasedMaternal GrandfatherDeceasedMaternal GrandmotherDeceasedMotherDeceasedMother's Brother DeceasedMother's SisterDeceasedPaternal GrandfatherDeceasedPaternal Grandmother DeceasedSonDeceased Social History Tobacco UseTypesPacks/DayYears UsedDateSmoking Tobacco: NeverSmokeless Tobacco: Never Tobacco Cessation:Counseling Given: Not Answered CommentsUnknownSex and Gender InformationValueDate RecordedSex Assigned at BirthNot on fileLegal VpbNrpnrn95/06/2024 12:35 PM EDTGender IdentityNot on fileSexual OrientationNot on file Last Filed Vital Signs Vital SignReadingTime TakenCommentsBlood Pressure--Pulse--Rknshtdcjzg47.6 ??C (97.8 ??F)07/19/2023 10:21 AM EDTRespiratory Rate--Oxygen Saturation--Inhaled Oxygen Concentration--Oovqra626 kg (244 lb)06/29/2024 8:27 AM QLMRkcilc670 cm (5' 3 )06/29/2024 8:27 AM EDTBody Mass Index43.22006/29/2024 8:27 AM EDT Plan of Treatment DateTypeDepartmentCare Team (Latest Contact Info)Uvqhuvdyvle81/20/2025 9:30 AM ESTOffice Visit [facility] [address] [place] [address] Gregorio Mancini, DO [address] [place] [address] Insurance Care Teams Team MemberRelationshipSpecialtyStart DateEnd Date Nicola James MD [address] [place] [address] PCP - GeneralFamily Medicine05/19/24
--- OUTSIDE RECORDS SUMMARY | 2024-12-25 04:36 | XMS_ITS | Encounter Summary ---
Author Organization [facility] Address [address] [facility], [address] [place] [address] Care Team Providers Care Human Projectile Name Role Phone Nicola James DO Primary Care Provider [phone] Reason for Visit * ReasonCommentsMedication Refill Encounter Details DateTypeDepartmentCare Team (Latest Contact Info)Jsejbzpkgsy16/30/2025Refill [facility] Medical Providers at [address] [address] Nicola James DO [address] [place], [place] [phone] Medication Refill Social History Tobacco UseTypesPacks/DayYears UsedDateSmoking Tobacco: NeverSmokeless [...] and heating?Not hard at all11/13/2023HQ-2AnswerDate RecordedPHQ-9 Total Alhoy834PRAPARE - TransportationAnswerDate RecordedIn the past 12 months, [...] steady place to sleep or slept in [place] (including now)?No06/07/2022Housing Stability Vital SignAnswerDate RecordedIn the last 12 months, was there a time when you were not able to pay the mortgage or rent on time?No12/04/2024In the past 12 months, how many times have you moved where you were living? At any time in the past 12 months, were you homeless or living in a group home (including now)?No12/04/2024UDIT-CAnswerDate RecordedQ1: How often do you [...] Domain Source: IP Abuse ScreeningAnswerDate Recorded Physical semjxAlckka81/31/2025Verbal kpudlCbfxni58/31/2025Emotional abuseDenies 12/25/2024Financial stjkwEnqfbx22/31/2025Sexual gesjvSekncq85/31/2025 CommentsNoSex and Gender InformationValueDate RecordedSex Assigned at BirthNot on fileLegal AraLebmif90/10/2013 6:14 PM ESTGender IdentityNot on fileSexual OrientationNot on filedocumented as of this encounter Plan of Treatment DateTypeDepartmentCare Team (Latest Contact Info)Ukvwjibzxge86/13/2025 2:45 PM ESTOffice Visit [facility] Part of [address] [address] Steevn Porter, HOTEL CONCIERGE - TOWEL ROLLING MACHINE OPERATOR [address] [place] [address] hosp f/u Covid/ COPD01/11/2025 10:[address] [facility] Medication Management [address] [place] [phone] CHF - Stopped Spironolactone Changed to Toprol 50 mg BID01/29/2025 12:20 PM EST Office Visit [facility] [place] [address] Nicola James DO [address] [place], [place] [phone] 4-6 wkdocumented as of this encounter Visit Diagnoses Diagnosis Shortness of breath documented in this encounter Additional Health Concerns AssessmentNoted TimeA fall risk assessment has been completed for the patient 11/13/2023 6:59 AM EDTdocumented as of this encounter Care Teams Team MemberRelationshipSpecialtyStart DateEnd Date Nicola James DO [address] [place] [address] PCP - GeneralFamily Medicine11/12/23documented as of this encounter
--- OUTSIDE RECORDS SUMMARY | 2024-12-25 04:36 | XMS_ITS | Encounter Summary ---
Author Organization [facility] Address [address] [facility], [address] [place] [address] Care Team Providers Care Psych Tech Name Role Phone Nicola Jmaes DO Primary Care Provider Reason for Visit * ReasonCommentsMedication Refill Encounter Details DateTypeDepartmentCare Team (Latest Contact Info)Toidsftvolm53/19/2025Refill [facility] Medical Providers at [address] [address] Nicola James DO [address] [place], [place] [phone] Medication Refill Social History Tobacco UseTypesPacks/DayYears UsedDateSmoking [...] and heating?Not hard at all11/13/2023HQ-2AnswerDate RecordedPHQ-9 Total Thoeo982PRAPARE - TransportationAnswerDate RecordedIn the past 12 months, [...] steady place to sleep or slept in [place] (including now)?No06/07/2022Housing Stability Vital SignAnswerDate RecordedIn the last 12 months, was there a time when you were not able to pay the mortgage or rent on time?No12/04/2024In the past 12 months, how many times have you moved where you were living? At any time in the past 12 months, were you homeless or living in a snf (including now)?No12/04/2024UDIT-CAnswerDate RecordedQ1: How often do you [...] Domain Source: IP Abuse Screening AnswerDate RecordedPhysical ohqikCwxcsw28/10/2025Verbal ryoxcQkqult02/10/2025 Emotional miufvWybcem07/10/2025Financial uuhzyYrlnbm07/10/2025Sexual abuseDenies 12/04/2024CommentsNoSex and Gender InformationValueDate RecordedSex Assigned at BirthNot on fileLegal WqbZfjjwh63/10/2013 6:14 PM ESTGender Identity Not on fileSexual OrientationNot on filedocumented as of this encounter Plan of Treatment DateTypeDepartmentCare Team (Latest Contact Info)Ncivdgmnzyn83/13/2025 2:45 PM ESTOffice Visit [facility] OUTREACH PUL Part of [place] [phone] Steven Porter, COMMERCIAL TELLER - BODY BUILDER APPRENTICE [address] [place] [address] hosp f/u Covid/ COPD01/11/2025 10:00 AM ESTPharmacy Visit [facility] Medication Management [address] [place] [phone] CHF - Stopped Spironolactone Changed to Toprol 50 mg BID01/29/2025 12:20 PM EST Office Visit [facility] at [address] [phone] Nicola James DO [address] [place] [address] 4-6 wkdocumented as of this encounter Visit Diagnoses Diagnosis Neuropathic pain Neuralgia, neuritis, and radiculitis, unspecified documented in this encounter Additional Health Concerns InfectionOnset DateLast IndicatedResolved TimeCOVID-1915112/17/2024 9:26 PM EDTAssessmentNoted TimeA fall risk assessment has been completed for the yccfxfd3611/13/2023 6:59 AM EDTdocumented as of this encounter Care Teams Team MemberRelationshipSpecialtyStart DateEnd Date Nicola James DO [address] [place] [address] PCP - GeneralFamily Medicine11/12/23documented as of this encounter
--- OUTSIDE RECORDS SUMMARY | 2024-12-25 04:36 | XMS_ITS | Encounter Summary ---
Author Organization [facility] Address [address] [facility], [address] [place] [address] Care Team Providers Care Special Agent Fbi Name Role Phone [place] ParkNicola mcclure Primary Care Provider [phone] Reason for Visit * ReasonCommentsMedication Refill Encounter Details DateTypeDepartmentCare Team (Latest Contact Info)Tnletwqvbnu20/19/2025[facility] Part of [address] [phone], QUILT STUFFER - EQUIPMENT MAINTENANCE SUPERVISOR [address] [place] [address] [place] [address] Medication Refill Social History Tobacco UseTypesPacks/DayYears UsedDateSmoking [...] and heating?Not hard at all11/13/2023HQ-2AnswerDate RecordedPHQ-9 Total Ichyr148PRAPARE - TransportationAnswerDate RecordedIn the past 12 months, [...] steady place to sleep or slept in [facility] (including now)?No06/07/2022Housing Stability Vital SignAnswerDate RecordedIn the last 12 months, was there a time when you were not able to pay the mortgage or rent on time?No12/04/2024In the past 12 months, how many times have you moved where you were living? At any time in the past 12 months, were you homeless or living in a longterm (including now)?No12/04/2024UDIT-CAnswerDate RecordedQ1: How often do you [...] or from getting things needed for daily living?No12/04/2024 UtilitiesAnswerDate RecordedIn the past 12 months has the electric, gas, oil, or water company threatened to shut off services in your home?No12/04/2024Interpersonal Safety Domain Source: IP Abuse Screening AnswerDate RecordedPhysical ikrjwFbjcvk44/10/2025Verbal blnyzTujaer44/10/2025 Emotional moujkItvief73/10/2025Financial cweyzIjtyuw95/10/2025Sexual abuseDenies 12/04/2024CommentsNoSex and Gender InformationValueDate RecordedSex Assigned at BirthNot on fileLegal VmqYwxgar89/10/2013 6:14 PM ESTGender Identity Not on fileSexual OrientationNot on filedocumented as of this encounter Plan of Treatment DateTypeDepartmentCare Team (Latest Contact Info)Kntjzdckmqt87/13/2025 2:45 PM ESTOffice Visit [facility] Part of [place] [phone] Steven Porter, QUILT STUFFER - EQUIPMENT MAINTENANCE SUPERVISOR [address] [place] [address] hosp f/u Covid/ COPD01/11/2025 10:00 AM ESTPharmacy Visit [facility] Medication Management [address] [place] [phone] CHF - Stopped Spironolactone Changed to Toprol 50 mg BID01/29/2025 12:20 PM EST Office Visit [facility] at [address] [phone] Nicola James DO [address] [place] [address] 4-6 wkdocumented as of this encounter Visit Diagnoses Not on filedocumented in this encounter Additional Health Concerns InfectionOnset DateLast IndicatedResolved TimeCOVID-1915112/17/2024 9:26 PM EDTAssessmentNoted TimeA fall risk assessment has been completed for the wvcjdwv0711/13/2023 6:59 AM EDTdocumented as of this encounter Care Teams Team MemberRelationshipSpecialtyStart DateEnd Date Nciola James DO [address] [place] [address] PCP - GeneralFamily Medicine11/12/23documented as of this encounter
--- OUTSIDE RECORDS SUMMARY | 2024-12-25 04:36 | XMS_ITS | Patient Health Record ---
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 Name Role Phone Nicola James DO Primary Care Provider Colten Givens Unavailable [phone] Allergies Allergen (clinical drug ingredient) Drug/Non Drug Allergy documented on EMR Reaction Allergy Type Onset Date Status No Known Drug Allergies (uncoded)UnknownAllergyActivePeanutPEANUT (uncoded) comment: blisters in mouth;AllergyActivecephalexinCEPHALEXIN MONOHYDRATEcomment: hives;Drug AllergyActive Reason For Referral No Information Medications Medication SIG (Take, Route, Frequency, Duration) Notes Start Date End Date Status Vitamin b100 Activeisosorbide mononitrateActiveOmega 3ActivelisinoprilActivelevothyroxine ActiveSynthroid 150 mcg (0.15 mg)take 1 tablet by oral route every day ORAL SYNTHROIDUnknownloratadineActivegabapentinActivehydrocortisoneActive triamcinoloneUnknownPotassium ChlorideUnknownVitamin Y9Tknvnatnornfjkymytzjgrfk Activeciclopirox topicalUnknownelderberryActivefurosemideActivetacrolimus topicalUnknownDICLOFENAC SODIUMActiveB-Complex vitamin b complexORALVITAMIN B COMPLEXUnknownpravastatinActiveDiclofenac Sodium sodium 75 mgtake 1 tablet by oral route 2 times every day ORALDICLOFENAC JKTWQC0206/15/2014UnknownaspirinActive AmLODIPine Besylate 5 mgORALAMLODIPINE FPKAFWMXDwggtbSsbfy-7VTTBGKTELGC-0Bttlnvn Social History Tobacco Use: Social History Observation Description Date Details (start date - stop date) Never Smoker NA - NA Smoking History Question Answer Notes Smoking Status NonSmoker Problems Problem Type SNOMED Code ICD Code Onset Dates Problem Status W/U Status Risk Notes Problem 061153844 Cervical spondylosis with ra diculopathy (M47.22) SmsqgfdtdyduzmnVaaxufg68476516Upoeqamu spinal stenosis (M48.02)Activeconfirmed Lkuexdq344129051Ipaypl stenosis, lumbosacral region (M48.07)Activeconfirmed ProblemDisplacement of lumbar intervertebral disc without myelopathy (90549627) Other intervertebral disc displacement, lumbar region (M51.26)Activeconfirmed Ivvamuz499625505Qbdgcz of muscle, fascia and tendon of other parts of biceps, right arm, initial encounter (S46.211A)BwmbnafbzxbmkyhMgwjvfp516051497Lqhfgu of muscle, fascia and tendon of other parts of biceps, right arm, subsequent encounter (S46.211D)BvfzlhupcnbxrdwQqgdabv599918571394Hjvitgrp of left artificial knee joint (Z96.652)CucdmfsgclucuwzUojxxbj03900642508430312 Paresthesia of right upper extremity (R20.2)ActiveconfirmedProblem 260600452605173Jtwfpva osteoarthritis of right knee (M17.11)Activeconfirmed ProblemEnthesopathy of hip region (19886177)Greater trochanteric bursitis of right hip (M70.61)ActiveconfirmedProblemEnthesopathy of hip region (70203168) Greater trochanteric bursitis of left hip (M70.62)ActiveconfirmedProblem 043704635Ybgvhbdttyf spondylosis with radiculopathy (M47.27)Activeconfirmed Rgxcplj5547833037Apfed pain of right knee (M25.561)ActiveconfirmedProblemLumbar radicular pain (8089966688)Lumbar radicular pain (M54.16)ActiveconfirmedProblem 97040565Pshnyrueqzy radiculitis (M54.17)KnvrfahjhmfqnqnWwmrlnh97914639545469021 Pain of both sacroiliac joints (M53.3)ZnqjuywgoqmvfhyFwlwamj33016877Difed pain of right shoulder (M25.511)ActiveconfirmedProblemProsthetic joint dislocation (862891381)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)Active confirmedProblemArtificial joint pain, initial encounter (T84.84XA)Active bltqflxmdZowfawy60007391Rwlulyavpyim of intervertebral disc of lumbosacral region (M51.37)DnbjyzdtahrgmbzRasccrl35351947Ztixoaaljhwv of intervertebral disc at C4-C5 level (M50.321)ZlfmzartapqixhoPbdmwtn99333525Xnnhgrhnrwhi of C5-C6 intervertebral disc (M50.322)QguggliwtzencogXtstbki259867787Qwecebifpk tear of right rotator cuff, unspecified whether traumatic (M75.111)Activeconfirmed Bdzrtbw20604422Ezfkkcknfk muscle pain (M79.18)ActiveconfirmedProblem 0349375293628596Ermbw shoulder tendinitis (M77.8)Activeconfirmed Plan Of Treatment Pending Test Test Name Order Date ESR 11/26/2022 CRP 11/26/2022 DME - Knee Hinged Brace OTS 11/26/2022 PT 12/10/2022 CT KNEE LEFT WO CONTRAST 11/26/2022 RSS: KNEE POST OP LEFT 3V AP,LAT, PATELL A [id number] 11/26/2022 RSS: KNEE RIGHT CIRA AP,CIRA PA ,RIGHT LAT ,CIRA SUNRISE - [id number] 11/26/2022 Insurance Providers Payer Name Payer Address Payer Phone Subscriber Number Group Number Insured Name Patient Relationship to Insured Coverage Start Date Coverage End Date Medicare Human [address] [address] [place] [address] [phone] [id number] Jv RONDON - patient is the insured Medical (General) History Medical History History ICD Code LICHEN PLANUS Heart problems: YesHypothyroidism YesHigh Blood Pressure: YesHepatitis: YesDrug Allergies: YesHypothyroidism YesHigh Blood Pressure: YesHepatitis: YesDrug Allergies: YesHigh Blood Pressure: YES,Hepatitis YES,Thyroid disease YES, Autoimmune diseaseAdrenocortical insufficiencySurgical History Surgery Date(Month/Year) Left total knee replacement 11/2018 CYST REMOVED IN FOOT 2003 FATTY TUMOR REMOVED 1985 HYSTERECTOMY 1992 1976
--- OUTSIDE RECORDS SUMMARY | 2024-12-25 04:36 | XMS_ITS | Encounter Summary ---
Author Organization [facility] Address [address], [address] [place] [address] Care Team Providers Care Spinning Operator Name Role Phone Nicola James DO Primary Care Provider [phone] Reason for Referral * Medication Prior Authorization - AuthorizedSpecialtyDiagnoses / Procedures Referred By ContactReferred To Contact Diagnoses RUFUS (generalized anxiety disorder) Nicola James DO [address] [place] [address] Phone: tel: fax: Referral IDStatusReasonStart DateExpiration DateVisits RequestedVisits [id number]/17/202510/17/202611 Reason for Visit * ReasonOnset DateCommentsMed Refill Qykfkenh54/15/2025Lorazapam Encounter Details DateTypeDepartmentCare Team (Latest Contact Info)Ruvsbtzckuv04/15/2025Telephone [facility] at [address] [place] [address] Timoteo Jamesy, DO [address] [place] [address] Med Refill Clerical (Rikc) Social History Tobacco UseTypesPacks/DayYears UsedDateSmoking Tobacco: NeverSmokeless [...] and heating?Not hard at all11/13/2023HQ-2AnswerDate RecordedPHQ-9 Total Ifvvw897PRAPARE - TransportationAnswerDate RecordedIn the past 12 months, [...] were you homeless or living in a custodial (including now)?No12/04/2024UDIT-CAnswerDate RecordedQ1: How often do you [...] RecordedIn the past 12 months has the [employer], gas, oil, or water [employer] threatened to shut off services in your home?No12/04/2024Interpersonal Safety Domain Source: IP Abuse Screening AnswerDate RecordedPhysical bjizuKbmlsp38/10/2025Verbal nlylaAywiyf77/10/2025 Emotional gsloyBxakpt64/10/2025Financial lsfnmSknuki66/10/2025Sexual abuseDenies 12/04/2024CommentsNoSex and Gender InformationValueDate RecordedSex Assigned at BirthNot on fileLegal AfkOogbzt12/10/2013 6:14 PM ESTGender Identity Not on fileSexual OrientationNot on filedocumented as of this encounter Plan of Treatment DateTypeDepartmentCare Team (Latest Contact Info)Ssuflropmgf18/13/2025 2:45 PM ESTOffice Visit [facility] Part of [address] [address] Steven Porter, RULES EXAMINER - DIRECTOR OF ACQUISITIONS [address] [place] [address] hosp f/u Covid/ COPD01/11/2025 10:00 AM ESTPharmacy Visit [facility] Medication Management [address] [place] [phone] CHF - Stopped Spironolactone Changed to Toprol 50 mg BID01/29/2025 12:20 PM EST Office Visit [facility] at [address] [address] Nicola James DO [address] [place] [address] 4-6 wkdocumented as of this encounter Visit Diagnoses Diagnosis RUFUS (generalized anxiety disorder) Generalized anxiety disorder documented in this encounter Additional Health Concerns InfectionOnset DateLast IndicatedResolved TimeCOVID-19112/17/2024 9:26 PM EDTAssessmentNoted TimeA fall risk assessment has been completed for the vmefejf8911/13/2023 6:59 AM EDTdocumented as of this encounter Care Teams Team MemberRelationshipSpecialtyStart DateEnd Date Nicola James DO [address] [place] [address] PCP - GeneralFamily Medicine11/12/23documented as of this encounter
--- OUTSIDE RECORDS SUMMARY | 2024-12-25 04:36 | XMS_ITS | Clinical Summary ---
Author Organization [facility] Address [address], [address] [place] [address] Care Team Providers Care Radio Station Engineer Name Role Phone [place]ola mcclure DO Primary Care Provider [phone] Allergies Active AllergyReactionsCriticalityNoted DateCommentsCephalexinHivesMedium 06/09/2014Peanut-Containing Drug ProductsOther (See Comments)Fmvedh6909/13/2017 Blisters in mouth Oxycodone-AcetaminophenHives,HqtxFrs8201/20/2021 Medications MedicationSigDispense QuantityRefillsLast FilledStart DateEnd DateStatus tacrolimus (PROTOPIC) 0.1 % ointment Indications:saturday through saturdayApply topically 2 times daily Indications: saturday through saturday Apply topically 2 times daily. Uses as neededActive B COMPLEX VITAMINS PO Take 1 tablet by mouth dailyActive hydroxychloroquine (PLAQUENIL) 200 MG tablet Take by mouth 2 times dailyActive levothyroxine (SYNTHROID) 175 MCG tablet Indications:2 tabs on saturdayTake 1 tablet by mouth Daily Indications: 2 tabs on saturdayActive vitamin D 25 MCG (1000 UT) CAPS Take 1 capsule by mouth dailyActive NONFORMULARY Pt states to take 1 [place]eberry chew gummy daily.Active hydrocortisone (CORTEF) 10 MG tablet take double dose of your steroids (20 mg in the morning and 10 mg in the afternoon) for 4 more days, and then resume your usual dose after 60 tablet 4Active pravastatin (PRAVACHOL) 20 MG tablet TAKE 1 TABLET BY MOUTH EVERY DAY 90 tablet 4Active loratadine (CLARITIN) 10 MG tablet TAKE 1 TABLET BY MOUTH EVERY DAY 90 tablet 4Active aspirin 81 MG EC tablet Take 1 tablet by mouth daily Per inventory control associate per ptActive [place]-3 Fatty Acids (Girly Stuff MINICAPS OMEGA-3 PO) Take by mouth dailyActive omeprazole (PRILOSEC) 40 MG delayed release capsule TAKE 1 CAPSULE BY MOUTH EVERY MORNING BEFORE BREAKFAST 90 capsule 5Active primidone (MYSOLINE) 50 MG tablet Take 1 tablet by mouth nightly 90 tablet 5Active Nebulizers (COMPRESSOR/NEBULIZER) [facility] Indications:COPD mixed type (HCC)Nebulizer machine 1 each 5Active triamcinolone (KENALOG) 0.1 % ointment Apply topically 2 times daily as needed (rash)5Active acetaminophen (TYLENOL) 325 MG tablet Take 2 tablets by mouth every 6 hours as needed for PainActive furosemide (LASIX) 20 MG tablet Take 1 tablet by mouth daily 60 tablet 5Active Melatonin 10 MG TABS Take 5 mg by mouth at bedtimeActive albuterol sulfate HFA (VENTOLIN HFA) 108 (90 Base) MCG/ACT inhaler Inhale 2 puffs into the lungs 4 times daily as needed for Wheezing 18 g 5Active metoprolol succinate (TOPROL XL) 50 MG extended release tablet Take 1 tablet by mouth daily 30 tablet 5Active ENTRESTO 49-51 MG per tablet TAKE 1 TABLET BY MOUTH 2 TIMES A DAY 180 tablet 5Active gabapentin (NEURONTIN) 600 MG tablet Indications:Neuropathic painTAKE 1 AND 1/2 TABLETS BY MOUTH 3 TIMES A DAY 405 tablet 110504/6Active hydrOXYzine HCl (ATARAX) 25 MG tablet Indications:AnxietyTake 1 tablet by mouth every 8 hours as needed for Anxiety 30 tablet /5Active escitalopram (LEXAPRO) 10 MG tablet Take 1 tablet by mouth daily 30 tablet 5Active ipratropium 0.5 mg-albuterol 2.5 mg (DUONEB) 0.5-2.5 (3) MG/3ML SOLN nebulizer solution Indications:Shortness of breathINHALE 3 MILLILITERS VIA NEBULIZATION BY MOUTH 4 TIMES A DAY 360 mL 5Active dicyclomine (BENTYL) 20 MG tablet Take 1 tablet by mouth 3 times daily as needed (Diarrhea) 90 tablet 103/04/2024Discontinued(LIST CLEANUP) gabapentin (NEURONTIN) 600 MG tablet Indications:Neuropathic painTAKE 1.5 TABLET BY MOUTH THREE TIMES A DAY 405 tablet 104//Discontinued sacubitril-valsartan (ENTRESTO) 49-51 MG per tablet Take 1 tablet by mouth 2 times daily 60 tablet 306///Discontinued diclofenac (VOLTAREN) 75 MG EC tablet TAKE 1 TABLET BY MOUTH 2 TIMES A DAY 180 tablet 107//Discontinued(LIST CLEANUP) empagliflozin (JARDIANCE) 10 MG tablet Take 1 tablet by mouth daily 30 tablet 307///Discontinued(LIST CLEANUP) albuterol sulfate HFA (VENTOLIN HFA) 108 (90 Base) MCG/ACT inhaler Inhale 2 puffs into the lungs 4 times daily as needed for Wheezing 18 g /04/2024Discontinued(REORDER) ipratropium 0.5 mg-albuterol 2.5 mg (DUONEB) 0.5-2.5 (3) MG/3ML SOLN nebulizer solution Inhale 3 mLs into the lungs three times daily 270 mL /04/2024Discontinued(REORDER) metoprolol succinate (TOPROL XL) 50 MG extended release tablet Indications:Palpitations,Essential hypertension,Mixed hyperlipidemia,NICM (nonischemic cardiomyopathy) ([facility]),Morbid obesity (HCC),STORM (obstructive sleep apnea)Take 1 tablet by mouth in the morning and 1 tablet in the evening. 180 tablet Discontinued(Stop Taking at Discharge) ipratropium 0.5 mg-albuterol 2.5 mg (DUONEB) 0.5-2.5 (3) MG/3ML SOLN nebulizer solution Indications:Shortness of breathInhale 3 mLs into the lungs 4 times daily 360 mL /Discontinued LORazepam (ATIVAN) 0.5 MG tablet Indications:RUFUS (generalized anxiety disorder)Take 1 tablet by mouth every 4 hours as needed for Anxiety for up to 30 days. Max Daily Amount: 3 mg 15 tablet Discontinued(REORDER) LORazepam (ATIVAN) 0.5 MG tablet Indications:RUFUS (generalized anxiety disorder)Take 1 tablet by mouth every 6 hours as needed for Anxiety for up to 7 days. Max Daily Amount: 2 mg 28 tablet Expired Active Problems ProblemNoted DateDiagnosed RyrkTlsdqlokk96/14/2025Acute combined systolic and diastolic congestive heart kfbzapx5112/04/2024OVID-191OPD exacerbation 5Acute ibpixug09/18/2025Acute hypoxemic respiratory txbdbxb0210/30/2024 Acute bronchitis due to other specified ptvwteusb87/05/2025typical chest pain 09/16/2024hronic combined systolic and diastolic CHF (congestive heart failure) 09/16/20240623Bradtqtuaieq48/23/2025Heart ahyzian6009/15/2024Status post total right knee pmonvjviqip40/03/2024Nausea and ttlzitta66/02/2024Lumbosacral radiculitis 11/27/20234431Oiooanotwos75/18/2024drenocortical zjrbzntphbrry87/18/2024ain of both sacroiliac nidkov2210/16/2023NICM (nonischemic cardiomyopathy)09/11/2023 Osteoarthritis of knee08/12/2023Spinal stenosis of lumbar region with neurogenic rnqiwdlkxabh02/13/2023ervical wzloofzqeho71/13/2023Type 2 diabetes mellitus without complication, without long-term current use of scnhwmi6910/30/2022 Essential awhqql663Pain in the neck3Pain of right upper /18/2023Neuropathy of right upper weysizdtl89/18/2023Myalgia 09/05/2022Spondylosis of lumbosacral region without myelopathy or radiculopathy 08/15/2022Sacroiliac joint pain08/08/2022aresthesia of right upper extremity 07/24/2022Neuropathy involving both lower kpszmahvrtg36/30/2023ervical radicular pain06/13/2022 Overview (06/13/2022): Added automatically from request for surgery [id number] Lumbosacral mwqdbfoxmjyfj19/01/2023 Overview (04/25/2022): Added automatically from request for surgery [id number] DDD (degenerative disc disease), jbaahb1904/25/2022Lumbar vkumoymdocz85/11/2023 Spondylosis of lumbar region without myelopathy or cckeofhojnqpt02/16/2022 Chronic low back pain2Cervical qeyuemgtgpn46/05/2022Cervical spinal xiqswfyq67/05/2022Acute pain of right mvbedkty02/05/2022Microscopic hematuria 02/09/2020Incomplete bladder xnqgogth96/15/2020Angiomyolipoma of left kidney 02/09/2020Abnormal cardiovascular stress test05/30/2018Positive FIT (fecal immunochemical test)02/12/2018GAD (generalized anxiety disorder)06/05/2017 Kjdwjwftfb17/17/2017Primary osteoarthritis involving multiple fvbkcm7904/01/2015 Morbid obesity with BMI of 40.0-44.9, adult12/17/2014Essential hypertension 06/09/20141422Jmacmajgqrhtsd41/15/5587Ndlwcffdutzg50/15/2015Tremors of nervous ftgaem4806/09/2014 Resolved Problems ProblemNoted DateDiagnosed DateResolved DateAnxiety state Essential emqdvwhxcium59Hypothyroidism Other and unspecified eaozoucwjtgewc12Anxiety state06/09/2014 06/05/2017 Encounters DateTypeDepartmentCare PmcoPhodfqmhsta61/31/2025 2:20 AM EDT - 12/25/2024 3:21 [facility] [address] [place], [place] [phone] Aron Goodman MD Dyspnea, unspecified type (Primary Dx) Discharge Disposition: Home or Self Care12/25/20241565Anrvhl09/30/2025Telephone [facility] at [address] [address] Nicola James, DO Other (Respiratory concerns.)12/24/2024Refill [facility] at [address] [address] Nicola James, DO Medication Olpxqb5312/21/2024Telephone [facility] at [address] [address] Nicola James, Other12/18/2024 12:20 PM EDTOffice Visit [facility] at [address] [address] Nicola James, Anxiety (Primary Dx)12/15/2024 3:08 PM EDT - 12/15/2024 11:59 PM EDTHospital Encounter [facility] [address] [place] [address] Discharge Disposition: Home or Self Care12/13/2024Refill [facility] at [address] [address] Nicola James, DO Medication Exihty7712/13/2024Refill [facility] CARDIOLOGY Part of [address] [address], PRICER - MGMT SPECIALIST Medication Cofnrk3912/09/2024Telephone [facility] at [address] [address] Nicola James DO Med Refill Clerical (Lorazapam)12/03/2024 9:47 PM EDT - 12/08/2024 5:27 PM EDT Hospital Encounter [facility] SURG [address] [place] [address] [phone] August Potts, Conrad Ng MD COPD exacerbation (HCC) (Primary Dx); COVID-19; Hypoxemia; Shortness of breath; RUFUS (generalized anxiety disorder); Acute hypoxemic respiratory failure (HCC) Discharge Disposition: Home Health Care Svc19746Bpnqud86/08/2025Telephone [facility] at [address] [address] Nicola James DO Shortness of Ibjxww2611/27/2024 11:40 AM EDTOffice Visit [facility] at [address] [address] Nicola James DO Shortness of breath (Primary Dx)11/27/2024Refill Archie Hastings MD [address] [place] [address] [place] [phone] Archie Hastings MD Medication Ebsvxw7511/25/2024Telephone [facility] Part of [address] [address] Aaliyah Leos other11/25/2024Orders Only [facility] Part of [address] [address] Aaliyah Leos 11/12/2024 11:54 AM EDT - 11/16/2024 2:28 PM EDTHospital Encounter [facility] [address] [place] [address] [phone] Elizabeth Arriaga, Archie Rose MD Dyspnea and respiratory abnormalities (Primary Dx) Discharge Disposition: Home or Self Care11/12/2024 11:20 AM EDTOffice Visit [facility] Part of [address] [phone] Joan Hay MD Chronic combined systolic (congestive) and diastolic (congestive) heart failure (HCC) (Primary Dx); Palpitations; Shortness of breath; Essential hypertension; Mixed hyperlipidemia; Morbid obesity (HCC); STORM (obstructive sleep apnea); Mild CAD; Mild mitral jeqmqxguyrgkw04/18/7431Fsxtxh90/08/2025Orders Only [facility] Part [address] [address] Gayathri Perkins MA Palpitations; Essential hypertension; Mixed hyperlipidemia; NICM (nonischemic cardiomyopathy) (HCC); Morbid obesity (HCC); STORM (obstructive sleep apnea)10/30/2024 7:35 AM EDT - 11/01/2024 1:29 PM EDT Hospital [facility] [address] [place], [place] [phone] Viviana Flowers MD Akers, Archie Khalil MD COPD mixed type (HCC) (Primary Dx); Palpitations; Essential hypertension; Mixed hyperlipidemia; NICM (nonischemic cardiomyopathy) (HCC); Morbid obesity (HCC); STORM (obstructive sleep apnea); Acute bronchitis and bronchiolitis /negative viral panel /2024; COPD exacerbation (HCC); Atypical chest pain; Dyspnea, unspecified type Discharge Disposition: Home or Self Care10/30/20242450Twrnzb72/04/2025Results Follow-Up [facility] Part of [address] [phone], PRICER - MGMT SPECIALIST 10/27/2024 10:14 AM EDT - 10/27/2024 3:17 PM [facility] [address] [place], [place] [phone] Aron Goodman MD Chest pain, unspecified type (Primary Dx); Cough, unspecified type Discharge Disposition: Home or Self Care10/27/20247766Yotgoz80/26/2025bstract [facility] Part of [address] [address] Gayathri Perkins MA 10/19/2024 2:45 PM EDT - 10/21/2024 11:59 PM EDTHospital Encounter [facility] Non-Invasive Cardiology [address] [place], [place] [phone] Palpitations; Essential hypertension; Mixed hyperlipidemia; NICM (nonischemic cardiomyopathy) (HCC); Morbid obesity (HCC); STORM (obstructive sleep apnea) Discharge Disposition: Home or Self Care10/19/2024 1:30 PM EDTOffice Visit [facility] Part of [address] [address], PRICER - MGMT SPECIALIST Chronic combined systolic (congestive) and diastolic (congestive) heart failure (HCC) (Primary Dx); NICM (nonischemic cardiomyopathy) (HCC); Palpitations; Shortness of breath; Mild CAD; Essential hypertension; Mixed hyperlipidemia; Mild mitral regurgitation; Morbid obesity (HCC); STORM (obstructive sleep apnea)10/19/2024Telephone [facility] Part of [address] [address] Nikkie Cruz APRN - MGMT SPECIALIST 10/14/2024Telephone [facility] at [address] [address] Nicola James DO con't sx's010/11/2024Results Follow-Up [facility] Part [address] [address] Joan Hay MD Octnxwg1910/07/2024 1:40 PM EDTOffice Visit [facility] at [address] [address] Nicola James DO Pharyngitis, unspecified etiology (Primary Dx); Qopjmenjgj83/13/2025 10:54 AM EDT - 10/07/2024 11:59 PM EDTHospital Encounter [place] [phone] Acute on chronic combined systolic and diastolic CHF (congestive heart failure) (HCC) Discharge Disposition: Home or Self Care10/07/2024 10:49 AM EDT - 10/09/2024 11:59 PM EDTHospital Encounter [facility] Radiology [address] [place] [address] Acute on chronic combined systolic and diastolic CHF (congestive heart failure) (HCC) Discharge Disposition: Home or Self Care10/06/2024Orders Only [facility] at [address] [address] ProviderHenry MD 09/29/2024 10:40 AM EDTOffice Visit [facility] at [address] [address] Nicola James DO Heart failure, unspecified HF chronicity, unspecified heart failure type (HCC) (Primary Dx); NICM (nonischemic cardiomyopathy) (HCC); Dyspnea on exertion; Acute renal failure, unspecified acute renal failure type; Electrolyte disturbance; Primary hypertensionfrom Last 3 Months Immunizations ImmunizationAdministration DatesNext DueInfluenza Vaccine, unspecified mzczqvojypm17/14/2016,12/17/2014Influenza, AFLURIA (age 3 y+), FLUZONE, (age 6 mo+), Quadv MDV, 0.5mL01/11/2017Influenza, FLUAD, (age 65 y+), IM, Trivalent PF, 0.5mL11/01/2017Influenza, FLUBLOK, (age 18 y+), Quadv PF, 0.5mL12/02/2018 Influenza, FLUZONE High Dose (age 65 y+), IM, Quadv, 0.7mL01/08/2023,11/30/2021, 12/06/2020,12/29/2019Influenza, FLUZONE High Dose, (age 65 y+), IM, Trivalent PF, 0.5mL4Pneumococcal, PCV20, PREVNAR 20, (age 6w+), IM, 0.5mL 2RSV, AREXVY, (age 60y+), PF, IM, 0.5mL11/13/2023TDaP, ADACEL (age 10y- 64y), BOOSTRIX (age 10y+), IM, 0.5mL07/11/2016,12/07/1996Zoster Live (Zostavax) 07/11/2016 Family History Medical HistoryRelationNameCommentsHeart DiseaseBrother4 stents in his early 50'sHeart SurgeryBrotherDiabetesFatherHeart AttackFatherHeart DiseaseFatherHeart SurgeryFatherHigh Blood PressureFatherCancerMaternal GrandmotherDiabetesMother Heart DiseaseMotherHigh Blood PressureMotherRelationNameStatusCommentsBrother FatherDeceasedMaternal GrandmotherMotherDeceased Social History Tobacco UseTypesPacks/DayYears UsedDateSmoking Tobacco: NeverSmokeless [...] heating?Not hard at all 11/13/2023HQ-2AnswerDate RecordedPHQ-9 Total Ohcin223PRAPARE - TransportationAnswerDate RecordedIn the past 12 months, [...] RecordedIn the past 12 months has the [employer], gas, oil, or water company threatened to shut off services in your home?No12/04/2024 Interpersonal Safety Domain Source: IP Abuse ScreeningAnswerDate Recorded Physical znwhaNqlsdr88/31/2025Verbal jntigWlsdrt29/31/2025Emotional abuseDenies 12/25/2024Financial plxopCzqycf40/31/2025Sexual wxzrhBeervn57/31/2025 CommentsNoSex and Gender InformationValueDate RecordedSex Assigned at BirthNot on fileLegal HdqSafwgi49/10/2013 6:14 PM ESTGender IdentityNot on fileSexual OrientationNot on file Last Filed Vital Signs Vital SignReadingTime TakenCommentsBlood Kjqvwdfb589/4244512/25/2024 2:45 AM EDT Jlsdz298312/25/2024 2:45 AM NQMOsovkvyguwk64 ??C (98.6 ??F)12/25/2024 2:28 AM EDT Respiratory Oout912412/25/2024 2:45 AM EDTOxygen Vpkqulmisk89%12/25/2024 2:45 AM EDTInhaled Oxygen Concentration--Hntvuz54.1 kg (214 lb)12/25/2024 2:28 AM EDT Xfexda444.5 cm (5' 2 )12/25/2024 2:28 AM EDTBody Mass Index39.141 2:28 AM EDT Plan of Treatment DateTypeDepartmentCare Team (Latest Contact Info)Zjtrmhbfyrc79/13/2025 2:45 PM ESTOffice Visit [facility] OUT[facility]ACH PULM Part of [address] [phone] Steven Porter, PRICER - MGMT SPECIALIST [address] [place] [address] hosp f/u Covid/ COPD01/11/2025 10:00 AM ESTPharmacy Visit [facility] Medication Management [address] [place] [phone] CHF - Stopped Spironolactone Changed to Toprol 50 mg BID01/29/2025 12:20 PM EST Office Visit [facility] [place] [address] Nicola James DO [address] [place], [place] [phone] 4-6 wkHealth MaintenanceDue DateLast DoneCommentsDiabetic retinal exam1972 Fecal-DNA (Cologuard): Average risk11/10/1999Sigmoidoscopy/CT colonography 11/10/1999Shingles vaccine (2 of 3)Diabetic foot exam FIT/FOBT: Average riskDiabetic Alb to Cr ratio (uACR) test, 11/10/2019, 08/20/2017Annual Wellness Visit (Medicare Advantage)/, 10/30/2022, 09/01/2021Flu vaccine (#1)/, 01/08/2023, 11/30/2021, Additional history existsCOVID-19 Vaccine ( - season)2024A1C test (Diabetic or Prediabetic), 02/06/2021, 05/24/2020, Additional history oulmzaWzrnta85/26/202603/, 08/13/2019, 08/20/2017, Additional history existsDepression Rqtuwy05, 10/07/2024GFR test (Diabetes, CKD 3-4, OR last GFR 15-59), 12/15/2024, 12/08/2024, Additional history existsHepatitis C mtdshs8101/02/2026Postponed from 1972 (Unavailable)Breast cancer wudntk50, 12/09/2023, 12/05/2022, Additional history existsDTaP/Tdap/Td vaccine (3 - Td or Tdap)07/11/2026 07/11/2016, 12/07/19960312Ahmwsocagvz53, 02/25/2005 (Previously completed)Colorectal Cancer Cosibr4204/22/2028Pneumococcal 0-49 years Vaccine Jnjuonviyang79/31/2022neumococcal 50+ years TtqraqrGmghwaiaa30/31/2022DEXA (modify frequency per FRAX score)Ifoofihgz14/07/2023Respiratory Syncytial Virus (RSV) or age 60 yrs+Ijxspcuau13/18/2024Hepatitis A vaccineAged OutNo longer eligible based on patient's age to complete this topicHepatitis B vaccine Aged OutNo longer eligible based on patient's age to complete this topicHib vaccineAged OutNo longer eligible based on patient's age to complete this topic Meningococcal (ACWY) vaccineAged OutNo longer eligible based on patient's age to complete this topicMeningococcal B vaccineAged OutNo longer eligible based on patient's age to complete this topicPolio vaccineAged OutNo longer eligible based on patient's age to complete this topic Medical Devices ImplantedTypeAreaManufacturerDevice IdentifierShelf Expiration DateModel / Serial / LotKneeKneeBilateral: Knee Procedures Procedure NamePriorityDate/TimeAssociated DiagnosisCommentsRAPID INFLUENZA A/B NKWSJPPNFRRI32/31/2025 2:35 AM EDT COVID-19, EKDYKEUNB12/31/2025 2:35 AM EDT EKG 12-HNFLKIUV02/31/2025 2:25 AM EDT Procedure Note - Result, Unknown Provider - 12/25/2024 2:25 AM EDT This note is in progress. Normal sinus rhythm Left axis deviation Left bundle branch block Abnormal ECG When compared with ECG of 03-Dec-2024 21:48, Vent. rate has decreased by 45 bpm Nonspecific T wave abnormality now evident in Anterior leads KNKGTHR4712/25/2024 2:21 AM EDT BRAIN NATRIURETIC ZEGYIXFAHUW42/31/2025 2:21 AM EDT BASIC METABOLIC EHBSLUKUS89/31/2025 2:21 AM EDT CBC WITH AUTO TAYEYJGZMXGTTVFT68/31/2025 2:21 AM EDT AESUNARTONRBH26/31/2025 2:21 AM EDT OPIVGVZLUAKE11/31/2025 2:21 AM EDT CBC WITH AUTO RMPXGGPRDBJBOloamij58/21/2025 1:00 PM EDT BASIC METABOLIC TXLDUUwaxqwm86/21/2025 1:00 PM EDT EKG RHYTHM TYCTPXewpnsi99/14/2025 3:00 PM EDT HOME O2 EVAL (DESATURATION SCREEN)Drfuzhv1112/08/2024 11:55 AM EDTC-REACTIVE MAKUMCTPhfyfxl04/14/2025 6:08 AM EDT COMPREHENSIVE METABOLIC QXVZYPwxzqsn17/14/2025 6:08 AM EDT CBC WITH AUTO PEDHCWCLVNIDHdkqize20/14/2025 6:08 AM EDT EKG RHYTHM TIZCZXvtyspr83/14/2025 6:00 AM EDT EKG RHYTHM IMTLLNdxslmv34/13/2025 3:00 PM EDT EKG RHYTHM RNYXESxuycul29/13/2025 9:00 AM EDT C-REACTIVE MNZYCISDzhzwph25/13/2025 5:45 AM EDT COMPREHENSIVE METABOLIC ZUYHVSvsgesk55/13/2025 5:45 AM EDT CBC WITH AUTO NKHMAQOQCDKTOnpxuus13/13/2025 5:45 AM EDT EKG RHYTHM CYYIJLsmbnay29/13/2025 12:00 AM EDT EKG RHYTHM TWABDLgvtpfp13/12/2025 3:00 PM EDT C-REACTIVE PNLUPOHQjnhzjo13/12/2025 6:10 AM EDT COMPREHENSIVE METABOLIC GEHUUAjkqpzv57/12/2025 6:10 AM EDT CBC WITH AUTO FUXHVEDQMTFESnlgjzt16/12/2025 6:10 AM EDT EKG RHYTHM XAPUKBaimxlg96/12/2025 6:00 AM EDT EKG RHYTHM YQUEPEashphz58/11/2025 6:18 AM EDT C-REACTIVE BFVBZJOIbfhzra61/11/2025 6:00 AM EDT COMPREHENSIVE METABOLIC CPNCWJstvpbs39/11/2025 6:00 AM EDT CBC WITH AUTO YOHTWWIFGPXBPlybwdp05/11/2025 6:00 AM EDT EKG RHYTHM EPHQPSjdpbng91/11/2025 12:00 AM EDT EKG RHYTHM UPCKKTxarpet61/10/2025 3:00 PM EDT ECHO (TTE) COMPLETE W/ CGTXHTXOSujhvjj17/10/2025 10:30 AM EDT Shortness of breath CT SOFT TISSUE NECK W SRQEZECZFZVX01/10/2025 8:[address] CHEST PULMONARY EMBOLISM W RTTBTWTDZJKB83/10/2025 7:57 AM EDT EKG RHYTHM OQZDHPyytcrm30/10/2025 6:00 AM EDT C-REACTIVE RBFUYBHZrzzrns19/10/2025 6:00 AM EDT T4, FREEAdd-On12/04/2024 6:00 AM EDT TSHAdd-On12/04/2024 6:00 AM EDT CBC WITH AUTO GJOKYYKBAVWJUzhsfyh78/10/2025 6:00 AM EDT BASIC METABOLIC PANEL W/ REFLEX TO MG FOR LOW FGqjxjbc28/10/2025 6:00 AM EDT EKG RHYTHM LDJTSQdgneen15/10/2025 12:57 AM EDT BRAIN NATRIURETIC QQLFHUNQVXA65/09/2025 10:10 PM EDT NCOXJBGMYEON03/09/2025 10:10 PM EDT BASIC METABOLIC MIEAFNGVJ59/09/2025 10:10 PM EDT XR CHEST JQWZNZXDNWEM40/09/2025 10:02 PM EDT RAPID INFLUENZA A/B UNBNXMQOWMJS90/09/2025 9:59 PM EDT COVID-19, RGDTZAPGP06/09/2025 9:59 PM EDT EKG 12-AZRSINGO66/09/2025 9:48 PM EDT CBC WITH AUTO EHGNNETHLEKZECQG02/09/2025 9:45 PM EDT XR CHEST (2 VW)Goorjmd6411/16/2024 8:07 AM EDT EKG RHYTHM DNEXDCburxow70/22/2025 6:00 AM EDT CBC WITH AUTO SXMZUEMSZAXLBedizhh84/22/2025 5:28 AM EDT COMPREHENSIVE METABOLIC PANEL W/ REFLEX TO MG FOR LOW RYjkxzay72/22/2025 5:28 AM EDT EKG RHYTHM QPKDIRhhcmqs54/21/2025 2:59 PM EDT EKG RHYTHM ULKBHAvllexx83/21/2025 6:00 AM EDT CBC WITH AUTO BGYCOMAZGQCKVnuznvo76/21/2025 5:10 AM EDT COMPREHENSIVE METABOLIC PANEL W/ REFLEX TO MG FOR LOW JUyaxktw76/21/2025 5:10 AM EDT EKG RHYTHM RVLETWtkfjel08/20/2025 3:00 PM EDT EKG RHYTHM NTDHJNuwvzlw23/20/2025 6:00 AM EDT CBC WITH AUTO GJNRUVMDLFQOIdctxnp63/20/2025 5:45 AM EDT COMPREHENSIVE METABOLIC PANEL W/ REFLEX TO MG FOR LOW GEvcidzr58/20/2025 5:45 AM EDT EKG RHYTHM JMLDMRuwxtwg43/19/2025 5:55 AM EDT CBC WITH AUTO OLTIUYPRHZPBFhvuefr06/19/2025 5:08 AM EDT COMPREHENSIVE METABOLIC PANEL W/ REFLEX TO MG FOR LOW YHzsqzza40/19/2025 5:08 AM EDT RESPIRATORY PANEL, MOLECULAR, WITH COVID-19Sunquest Label Print11/12/2024 9:04 PM EDT PULSE OXIMETRY SPOT WKQSDDopegis19/18/2025 7:14 PM EDTEKG 12-LEADRoutine 11/12/2024 3:40 PM EDT ZIILNYFTFPJR06/18/2025 1:30 PM EDT BLOOD GAS, ZXXTUVGmcubbw39/18/2025 12:40 PM EDT EKG 12-XJAZLZRQ74/18/2025 12:31 PM EDT XR CHEST FNVAGBDMDDFX81/18/2025 12:22 PM EDT BRAIN NATRIURETIC FRONXCJHMSY34/18/2025 12:05 PM EDT UOBZOSPGBORD12/18/2025 12:05 PM EDT CBC WITH AUTO TLMBFAIPAWQLZDCI98/18/2025 12:05 PM EDT BASIC METABOLIC ILVTOGYZC54/18/2025 12:05 PM EDT EKG RHYTHM JGNXOQwmudev19/07/2025 6:00 AM EDT C-REACTIVE XIRPCCIGoecxbw52/07/2025 5:20 AM EDT CBC WITH AUTO STXMJMDAQSKNFslzaqb74/07/2025 5:20 AM EDT BASIC METABOLIC PANEL W/ REFLEX TO MG FOR LOW KDjbljmc65/07/2025 5:20 AM EDT EKG RHYTHM ONHYDEmtsnpx49/07/2025 12:00 AM EDT EKG RHYTHM PMNRQSdnfary56/06/2025 6:00 AM EDT C-REACTIVE FXCATFCRvfflyl05/06/2025 5:30 AM EDT CBC WITH AUTO NLHMKABKSHZFOqswqoh86/06/2025 5:30 AM EDT BASIC METABOLIC PANEL W/ REFLEX TO MG FOR LOW ALuhescj28/06/2025 5:30 AM EDT EKG RHYTHM PZXINChrohwd61/06/2025 12:00 AM EDT GLUCOSE, WHOLE LREYQXotehez53/05/2025 8:15 PM EDT EKG RHYTHM GDONYZnmgmna60/05/2025 4:00 PM EDT EKG RHYTHM OAEMMXycvntl22/05/2025 1:28 PM EDT BLOOD GAS, SODZKVLiheaaa07/05/2025 8:54 AM EDT C-REACTIVE HYLBLVXKfedjqu92/05/2025 8:45 AM EDT UYQEUKURQIYC17/05/2025 8:45 AM EDT RESPIRATORY PANEL, MOLECULAR, WITH COVID-07RSFS3010/30/2024 8:45 AM EDT RAPID INFLUENZA A/B JMIEUCAQUZWZ57/05/2025 8:45 AM EDT COVID-19, AJWOWIBXE37/05/2025 8:45 AM EDT XR CHEST MBTOKHWXRXSW43/05/2025 8:21 AM EDT NKIEHXTRFKBN62/05/2025 7:50 AM EDT COMPREHENSIVE METABOLIC IUHCBXZUW15/05/2025 7:50 AM EDT CBC WITH AUTO RHWTAPNPCCWOEJLG56/05/2025 7:50 AM EDT BRAIN NATRIURETIC BPYOJJHPENL34/05/2025 7:50 AM EDT EKG 12-SBNMIBTK07/05/2025 7:49 AM EDT ZYCHWMGRTCEW07/02/2025 2:[address] CHEST PULMONARY EMBOLISM W CKJQEYMBBJTC47/02/2025 12:32 PM EDT MICROSCOPIC GGUZPHQTHKWiflkyu09/02/2025 11:08 AM EDT QZTCCQSBTPZHUS16/02/2025 11:08 AM EDT XR CHEST YOOGAMGXFKVZ55/02/2025 10:49 AM EDT BRAIN NATRIURETIC EIEDRJHQERC27/02/2025 10:30 AM EDT BTOFUHMZOSTD93/02/2025 10:30 AM EDT COMPREHENSIVE METABOLIC PANEL W/ REFLEX TO MG FOR LOW KSTAT10/27/2024 10:30 AM EDT CBC WITH AUTO VZVSPJXMELCDROAX68/02/2025 10:30 AM EDT EKG 12-WAXJRCSO94/02/2025 10:23 AM EDT EXTENDED CARDIAC HOLTER MONITOR 3D-7D (OFFICE HOOKUP & IN-HOUSE ANALYSIS)Routine 10/19/2024 3:14 PM EDT Palpitations Essential hypertension Mixed hyperlipidemia NICM (nonischemic cardiomyopathy) (HCC) Morbid obesity (HCC) STORM (obstructive sleep apnea) EKG 12-WOYYLmxtnkr55/25/2025 Chronic combined systolic (congestive) and diastolic (congestive) heart failure (HCC) NICM (nonischemic cardiomyopathy) (HCC) Palpitations Shortness of breath Mild CAD Essential hypertension Mixed hyperlipidemia Mild mitral regurgitation Morbid obesity (HCC) STORM (obstructive sleep apnea) XR CHEST (2 VW)STAT10/07/2024 11:01 AM EDT Acute on chronic combined systolic and diastolic CHF (congestive heart failure) (HCC) CBC WITH AUTO GRGPZPEPVCSNSLHL44/13/2025 10:58 AM EDT Acute on chronic combined systolic and diastolic CHF (congestive heart failure) (HCC) BRAIN NATRIURETIC GQGMMKSMKTQ44/13/2025 10:58 AM EDT Acute on chronic combined systolic and diastolic CHF (congestive heart failure) (HCC) BASIC METABOLIC SVQOYSOTK35/13/2025 10:58 AM EDT Acute on chronic combined systolic and diastolic CHF (congestive heart failure) (HCC) COMPREHENSIVE METABOLIC XBFXXAknyprp75/11/2025 11:35 AM EDTMAM ISABEL DIGITAL DIAGNOSTIC UNILATERAL ZFLWRTbbtcqu04/28/2025 2:35 PM EDT Abnormal mammogram LIPID UPDSZHtsyxlq26/26/2025 9:49 AM EDT Essential hypertension Mixed hyperlipidemia Morbid obesity (HCC) Idiopathic cardiomyopathy (HCC) HEMOGLOBIN Z5GLecryyt83/26/2025 9:49 AM EDT Essential hypertension Mixed hyperlipidemia Morbid obesity (HCC) Idiopathic cardiomyopathy (HCC) NICM (nonischemic cardiomyopathy) (HCC) Hypoglycemia without diagnosis of diabetes mellitus DEXA BONE DENSITY AXIAL ABSAEAVGLecfasv84/07/2023 10:40 AM EDT Post-menopause ALBUMIN/CREATININE RATIO, BIECUEzvcott87/13/2021OCT FECAL IMMUNOCHEMICAL TEST (FIT)Nqtrhph6502/10/2018 8:49 AM EST Screening for malignant neoplasm of colon HM DIABETES FOOT OAFYSchwcoc86/01/2018 Type 2 diabetes mellitus without complication, without long-term current use of insulin (HCC) from Last 3 Months or Most Recently Relevant to Health Maintenance Results * COVID-19, Rapid (12/25/2024 2:35 AM EDT) Only the most recent of3 resultswithin the time period is included. ComponentValueRef RangeTest MethodAnalysis TimePerformed AtPathologist Signature Specimen Description.NASOPHARYNGEAL SWAB12/25/2024 2:35 AM [facility] YFSKEQJ-XvP-5, RapidNot DetectedNot Qotmwzgu35/31/2025 2:35 AM [facility] LABComment: ? Rapid NAAT: ??The specimen [...] / Volume Collection TimeReceived TimeNASOPHARYNGEAL SWAB / Dijnxqr9312/25/2024 2:35 AM EDT 12/25/2024 2:39 AM EDT Narrative Authorizing ProviderResult TypeResult StatusAron Goodman [facility]ITALROBIOLOGY - GENERAL ORDERABLESFinal ResultPerforming OrganizationAddressCity/State/ZIP CodePhone Number [facility] [address] [place] [address] * Rapid influenza A/B antigens (12/25/2024 2:35 AM EDT) Only the most recent of3 resultswithin the time period is included. ComponentValueRef RangeTest MethodAnalysis TimePerformed AtPathologist Signature Flu A JhbnomuYCBQRIRVCHZWOCMS95/31/2025 2:35 AM [facility] LABComment:for Influenza A AntigenFlu B WcasevtLGNSTZTSGCKSTVMU97/31/2025 2:35 AM [facility] LABComment:for Influenza B Antigen.Specimen (Source)Anatomical Location / LateralityCollection Method / VolumeCollection TimeReceived TimeANTERIOR NARES SWAB / Zflalyh6712/25/2024 2:35 AM EDT1 2:39 AM EDT Narrative Authorizing ProviderResult TypeResult StatusAron Goodman [facility]PITALIOLOGY - GENERAL ORDERABLESFinal ResultPerforming OrganizationAddressCity/State/ZIP CodePhone Number [facility] [address] [place] [address] * (ABNORMAL) CBC with Auto Differential (12/25/2024 2:21 AM EDT) Only the most recent of18 resultswithin the time period is included. ComponentValueRef RangeTest MethodAnalysis TimePerformed AtPathologist Signature WBC7.73.5 - 11.3 k/uL12/25/2024 2:21 AM [facility] LABRBC 5.35(H)3.95 - 5.11 m/uL12/25/2024 2:21 AM [facility] Vfcnachhbn88.8(H)11.9 - 15.1 g/dL12/25/2024 2:21 AM [facility] CVMVmhzxxrbhk28.836.3 - 47.1 %12/25/2024 2:21 AM [facility] LFDQYJ63.582.6 - 102.9 fL12/25/2024 2:21 AM [facility] WMMFDV09.525.2 - 33.5 pg12/25/2024 2:21 AM [facility] BWOWWFU14.828.4 - 34.8 g/dL12/25/2024 2:21 AM [facility] AMDSRD05.311.8 - 14.4 %12/25/2024 2:21 AM [facility] RVRDfncuajql352734 - 453 k/uL12/25/2024 2:21 AM [facility] LABMPV9.78.1 - 13.5 fL12/25/2024 2:21 AM [facility] LABNRBC Automated0.00.0 per 100 WBC12/25/2024 2:21 AM [facility] LABNeutrophils %5836 - 65 %12/25/2024 2:21 AM [facility] LABLymphocytes %23(L)24 - 43 %12/25/2024 2:21 AM [facility] LABMonocytes %113 - 12 %12/25/2024 2:21 AM [facility] LABEosinophils %6(H)1 - 4 %12/25/2024 2:21 AM [facility] LABBasophils %10 - 2 %12/25/2024 2:21 AM [facility] LABImmature Granulocytes %1(H)0 %12/25/2024 2:21 AM [facility] LABNeutrophils Absolute4.451.50 - 8.10 k/uL12/25/2024 2:21 AM [facility] LABLymphocytes Absolute1.801.10 - 3.70 k/uL 12/25/2024 2:21 AM [facility] LABMonocytes Absolute0.830.10 - 1.20 k/uL12/25/2024 2:21 AM [facility] LABEosinophils Absolute0.47(H)0.00 - 0.44 k/uL12/25/2024 2:21 AM [facility] LABBasophils Absolute0.090.00 - 0.20 k/uL12/25/2024 2:21 AM [facility] LABImmature Granulocytes Absolute0.040.00 - 0.30 k/uL 12/25/2024 2:21 AM [facility] LABSpecimen (Source) Anatomical Location / LateralityCollection Method / VolumeCollection Time Received TimeBloodBLOOD SPECIMEN / Ilzepwq3412/25/2024 2:21 AM EDT1 2:32 AM EDT Narrative Authorizing ProviderResult TypeResult Jarrett Goodman MDHEMATOLOGY ORDERABLES Final ResultPerforming OrganizationAddressCity/State/ZIP CodePhone Number [facility] [address] [place] [address] * (ABNORMAL) Troponin (12/25/2024 2:21 AM EDT) Only the most recent of8 resultswithin the time period is included. ComponentValueRef RangeTest MethodAnalysis TimePerformed AtPathologist Signature Troponin, High Jyvesgthuvc22(H)0 - 14 ng/L1 2:21 AM [facility] LABComment:High Sensitivity Troponin values cannot be compared with other Troponin methodologies.Specimen (Source)Anatomical Location / LateralityCollection Method / VolumeCollection TimeReceived TimeBloodBLOOD SPECIMEN / Fjyecbo6312/25/2024 2:21 AM EDT1 2:32 AM EDT Narrative Authorizing ProviderResult TypeResult Jarrett Goodman MDCHEMISTRY ORDERABLES Final ResultPerforming OrganizationAddressCity/State/ZIP CodePhone Number [facility] [address] [place] [address] * TSH (12/25/2024 2:21 AM EDT) Only the most recent of2 resultswithin the time period is included. ComponentValueRef RangeTest MethodAnalysis TimePerformed AtPathologist Signature TSH1.260.27 - 4.20 uIU/mL12/25/2024 2:21 AM [facility] Specimen (Source)Anatomical Location / LateralityCollection Method / Volume Collection TimeReceived TimeBloodBLOOD SPECIMEN / Aodsxkt6512/25/2024 2:21 AM EDT 12/25/2024 2:32 AM EDT Narrative Authorizing ProviderResult TypeResult Jarrett Goodamn MDCHEMISTRY ORDERABLES Final ResultPerforming OrganizationAddressCity/State/ZIP CodePhone Number [facility] [address] [place] [address] * (ABNORMAL) Brain Natriuretic Peptide (12/25/2024 2:21 AM EDT) Only the most recent of6 resultswithin the time period is included. ComponentValueRef RangeTest MethodAnalysis TimePerformed AtPathologist Signature NT Pro-BNP1,311(H)0 - 125 pg/mL12/25/2024 2:21 AM [facility] LABSpecimen (Source)Anatomical Location / LateralityCollection Method / VolumeCollection TimeReceived TimeBloodBLOOD SPECIMEN / Uyiffzk9312/25/2024 2:21 AM EDT1 2:32 AM EDT Narrative Authorizing ProviderResult TypeResult Jarrett Goodman MDCHEMISTRY ORDERABLES Final ResultPerforming OrganizationAddressCity/State/ZIP CodePhone Number [facility] [address] [place] [address] * Magnesium (12/25/2024 2:21 AM EDT)ComponentValueRef RangeTest MethodAnalysis TimePerformed AtPathologist SignatureMagnesium1.91.6 - 2.4 mg/dL12/25/2024 2:21 AM [facility] LABSpecimen (Source)Anatomical Location / LateralityCollection Method / VolumeCollection TimeReceived Time BloodBLOOD SPECIMEN / Emwxzbx7412/25/2024 2:21 AM EDT1 2:32 AM EDT Narrative Authorizing ProviderResult TypeResult StatusAron Goodman MDCHEMISTRY ORDERABLES Final ResultPerforming OrganizationAddressCity/State/ZIP CodePhone Number [facility] [address] [place] [address], [facility] [phone] * (ABNORMAL) BMP (12/25/2024 2:21 AM EDT) Only the most recent of5 resultswithin the time period is included. ComponentValueRef RangeTest MethodAnalysis TimePerformed AtPathologist Signature Phqycw316(L)136 - 145 mmol/L1 2:21 AM [facility] LABPotassium3.73.7 - 5.3 mmol/L1 2:21 AM [facility] UVLPrtzqeiw97(L)98 - 107 mmol/L1 2:21 AM [facility] LNPOJ207(H)20 - 31 mmol/L1 2:21 AM [facility] LABAnion Gap7(L)9 - 16 mmol/L1 2:21 AM [facility] XWAPxvhrfq453(H)74 - 99 mg/dL12/25/2024 2:21 AM [facility] IHRNPE506 - 23 mg/dL12/25/2024 2:21 AM [facility] LABCreatinine0.50.50 - 0.90 mg/dL12/25/2024 2:21 AM [facility] LABEst, Glom Filt Rate>90>60 mL/min/1.39e59912/25/2024 2:21 AM EDT [facility] LABComment: ? These results are not intended [...] therapy that affects renal tubular secretion. BUN/Creatinine Whupk266 - 2:21 AM [facility] LABCalcium9.68.6 - 10.4 mg/dL12/25/2024 2:21 AM [facility] LABSpecimen (Source)Anatomical Location / LateralityCollection Method / Volume Collection TimeReceived TimeBloodBLOOD SPECIMEN / Zulgylr7112/25/2024 2:21 AM EDT 12/25/2024 2:32 AM EDT Narrative Authorizing ProviderResult TypeResult StatusAron Goodman MDCHEMISTRY ORDERABLES Final ResultPerforming OrganizationAddressCity/State/ZIP CodePhone Number [facility] [address] [phone] * EKG Rhythm Strip (12/08/2024 3:00 PM EDT) Only the most recent of24 resultswithin the time period is included. Specimen (Source)Anatomical Location / LateralityCollection Method / Volume Collection TimeReceived Time12/08/2024 3:00 PM EDT Narrative [facility] - 12/08/2024 3:10 PM EDT Authorizing ProviderResult TypeResult StatusUnknown Provider ResultECG ORDERABLESFinal ResultPerforming OrganizationAddressCity/State/ZIP CodePhone Number [facility] [address] [place] [address] * C-Reactive Protein (12/08/2024 6:08 AM EDT) Only the most recent of8 resultswithin the time period is included. ComponentValueRef RangeTest MethodAnalysis TimePerformed AtPathologist Signature CRP<3.00.0 - 5.0 mg/L1 6:08 AM [facility] Specimen (Source)Anatomical Location / LateralityCollection Method / Volume Collection TimeReceived TimeBloodBLOOD SPECIMEN / Albpbis3112/08/2024 6:08 AM EDT 12/08/2024 6:23 AM EDT Narrative Authorizing ProviderResult TypeResult StatusMarysol Mcclure PRICER - MGMT SPECIALIST CHEMISTRY ORDERABLESFinal ResultPerforming OrganizationAddressCity/State/ZIP CodePhone Number [facility] [address] [place] [address], [facility] [phone] * (ABNORMAL) Comprehensive Metabolic Panel (12/08/2024 6:08 AM EDT) Only the most recent of6 resultswithin the time period is included. ComponentValueRef RangeTest MethodAnalysis TimePerformed AtPathologist Signature Apixsk585471 - 145 mmol/L1 6:08 AM [facility] Potassium3.93.7 - 5.3 mmol/L1 6:08 AM [facility] QYUTxshlgwx55123 - 107 mmol/L1 6:08 AM [facility] RGXCD151(H)20 - 31 mmol/L1 6:08 AM [facility] Anion Gap5(L)9 - 16 mmol/L1 6:08 AM [facility] Dcttoqw070(H)74 - 99 mg/dL12/08/2024 6:08 AM [facility] DFX618 - 23 mg/dL12/08/2024 6:08 AM [facility] Creatinine0.80.50 - 0.90 mg/dL12/08/2024 6:08 AM [facility] LABEst, Glom Filt Rate75>60 mL/min/1.56l19812/08/2024 6:08 AM [facility] LABComment: ? These results are not intended [...] therapy that affects renal tubular secretion. BUN/Creatinine Ratio24(H) - 6:08 AM [facility] LABCalcium9.58.6 - 10.4 mg/dL12/08/2024 6:08 AM [facility] LABTotal Protein5.6(L)6.6 - 8.7 g/dL12/08/2024 6:08 AM [facility] LABAlbumin3.63.5 - 5.2 g/dL12/08/2024 6:08 AM [facility] LABAlbumin/Globulin Ratio1.71.0 - 2.510 6:08 AM [facility] LABTotal Bilirubin0.30.00 - 1.20 mg/dL12/08/2024 6:08 AM [facility] LABAlkaline Jpctcfdsfkb0044 - 104 U/L1 6:08 AM [facility] XTNXQW0155 - 35 U/L1 6:08 AM [facility] KGMQOS5468 - 35 U/L1 6:08 AM [facility] LABSpecimen (Source)Anatomical Location / Laterality Collection Method / VolumeCollection TimeReceived TimeBloodBLOOD SPECIMEN / Iaxbjux1312/08/2024 6:08 AM EDT1 6:23 AM EDT Narrative Authorizing ProviderResult TypeResult StatusMeestiven Lala PRICER - CNPCHEMISTRY ORDERABLESFinal ResultPerforming OrganizationAddressCity/State/ZIP CodePhone Number [facility] [address] [phone] [phone] * (ABNORMAL) ECHO (TTE) COMPLETE W/ CONTRAST (12/04/2024 10:30 AM EDT)Component ValueRef RangeTest MethodAnalysis TimePerformed AtPathologist SignatureLV EDV U2C03jXDAIG CV CPACSLV EDV V3T960tNJVNT CV CPACSLV ESV P3M88pVHYJU CV CPACSLV ESV N8W74wAXPDI CV CPACSIVSd1.1(A)0.6 - 0.9 cmBSMH CV CPACSLVIDd4.33.9 - 5.3 cmBSMH CV CPACSLVIDs3.5cmBSMH CV CPACSLVOT Mean Pabeiqla7ftYwLYEK CV CPACSLVOT VTI21.2cmBSMH CV CPACSLVOT Peak Velocity1.1m/sBSMH CV CPACSLVOT Peak Gradient5 mmHgBSMH CV CPACSLVPWd1.2(A)0.6 - 0.9 cmBSMH CV CPACSLV Ejection Fraction A2C 36%[facility] CV CPACSLV Ejection Fraction A4C41%[facility] CV CPACSEF BP41(A)55 - 100 % [facility] CV CPACSLA Minor Axis4.9cmBSMH CV CPACSLA Major Axis4.7cmBSMH CV CPACSLA Area 2C19.9wt9FGFC CV CPACSLA Area 4C16.9vo1RVSZ CV CPACSLA Volume MOD A2C66 (A)22 - 52 mLBSMH CV CPACSLA Volume MOD T4T2497 - 52 mLBSMH CV CPACSLA Volume BP57(A)22 - 52 mLBSMH CV CPACSAV Cusp Mmode1.7cmBSMH CV CPACSAV Mean Gradient3 mmHgBSMH CV CPACSAV VTI21.8cmBSMH CV CPACSAV Mean Velocity0.7m/sBSMH CV CPACS AV Peak Velocity1.2m/sBSMH CV CPACSAV Peak Luhfmbjz6ivDjGCDC CV CPACSAortic Root1.7cmBSMH CV CPACSAscending Aorta2.7cmBSMH CV CPACSSinotubular Junction2.0 cmBSMH CV CPACSAortic Sinus Valsalva2.5cmBSMH CV CPACSMV Mean Gmuwmtud9adQh [facility] CV CPACSMV VTI27.5cmBSMH CV CPACSMV Mean Velocity0.8m/sBSMH CV CPACSMV Max Velocity1.5m/sBSMH CV CPACSMV Peak Ekablbbl5zaTgFHEY CV CPACSPR Max Velocity0.9m/sBSMH CV CPACSPulmonary Artery FJP4ljRnQWXP CV CPACSPV Max Velocity0.8m/sBSMH CV CPACSPV Peak Hqkthhfc8noDlRCEI CV CPACSTAPSE1.7>=1.7 cm [facility] CV CPACSTR Max Velocity2.45m/sBSMH CV CPACSTR Peak Mptxljcd19prDaQYZI CV CPACSBody Surface Area2.1q9RSGC CV CPACSFractional Shortening 3Y1519 - 44 % [facility] CV CPACSLV ESV Index P6N07cT/m2BSMH CV CPACSLV EDV Index E6W94lM/m2BSMH CV CPACSLV ESV Index B5Y35rI/m2BS[facility] CV CPACSLV EDV Index W8D40bA/m2BS[facility] CV CPACSLVIDd Index2.15cm/m2BS[facility] CV CPACSLVIDs Index1.75cm/m2BS[facility] CV CPACSLV RWT Ratio0.56BS[facility] CV CPACSLV Mass 2D173.6(A)67 - 162 gBSMH CV CPACSLV Mass 2D Index86.843 - 95 g/m2BS[facility] CV CPACSLA Volume Index NM6857 - 34 ml/m2[facility] CV CPACSLA Volume Index MOD P0C7244 - 34 ml/m2[facility] CV CPACSLA Volume Index MOD K3C3145 - 34 ml/m2[facility] CV CPACSAo Root Index0.85cm/m2[facility] CV CPACSAortic Sinus Valsalva Index1.25cm/m2BSMH CV CPACSAscending Aorta Index1.35cm/m2BSMH CV CPACSAV Velocity Ratio0.92BS[facility] CV CPACSLVOT:AV VTI Index0.97BS[facility] CV CPACS MV:LVOT VTI Index1.30BS[facility] CV CPACSEst. RA Otyoxplt7vfJvZDUE CV BEVBIUDEK69cmNw [facility] CV CPACSEF Criziksxu06%[facility] CV CPACSAnatomical RegionLateralityModality EchocardiographySpecimen (Source)Anatomical Location / LateralityCollection Method / VolumeCollection TimeReceived Time Narrative 12/04/2024 12:05 PM EDT Left Ventricle: Moderately reduced left ventricular systolic function with a visually estimated EF of 40 - 45%. Left ventricle size is normal. Mildly increased wall thickness. Moderate global hypokinesis present. Grade I diastolic dysfunction with normal LAP. ?Right??Ventricle: Right ventricle size is normal. Normal systolic function. ?Mitral??Valve: There is annular calcification noted. Mild regurgitation. No stenosis noted. ??MV Mean Gradient is 3 mmHg. ?Tricuspid??Valve: Mild regurgitation. ??RVSP is 27 mmHg. ?Aorta: Normal sized aortic root and ascending aorta. ?Pericardium: The pericardium is normal. No pericardial effusion. ?Image quality is suboptimal. Contrast used: Lumason. Left Ventricle Moderately reduced left ventricular systolic function with a visually estimated EF of 40 - 45%. Left ventricle size is normal. Mildly increased wall thickness. Moderate global hypokinesis present. Grade I diastolic dysfunction with normal LAP. Right Ventricle Right ventricle size is normal. Normal systolic function. Left Atrium Left atrium size is normal. Right Atrium Right atrium size is normal. IVC/SVC IVC diameter is normal or and decreases greater than 50% during inspiration; therefore the estimated right atrial pressure is normal (~3 mmHg). IVC size is normal. Mitral Valve There is annular calcification noted. Mild regurgitation. No stenosis noted. MV Mean Gradient is 3 mmHg. Tricuspid Valve Valve structure is normal. Mild regurgitation. RVSP is 27 mmHg. No stenosis noted. Aortic Valve Valve structure is normal. No regurgitation. No stenosis. Pulmonic Valve The pulmonic valve visualization is suboptimal but appears to be functioning normally. Trace regurgitation. No stenosis noted. Ascending Aorta Normal sized aortic root and ascending aorta. Pericardium The pericardium is normal. No pericardial effusion. Study Details Image quality: suboptimal. Lumason contrast was given to enhance imaging. Authorizing ProviderResult TypeResult StatusMeestiven Lala PRICER - CNPCV ECHO ORDERABLESFinal Result * CT SOFT TISSUE NECK W CONTRAST (12/04/2024 8:20 AM EDT)Anatomical Region LateralityModalityNeck, C-spineComputed TomographySpecimen (Source)Anatomical Location / LateralityCollection Method / VolumeCollection TimeReceived Time 12/04/2024 8:33 AM EDT Impressions 12/04/2024 8:36 AM EDT No acute abnormality of the soft tissue structures of the neck. Narrative 12/04/2024 8:36 AM EDT EXAMINATION: CT OF THE NECK SOFT TISSUE WITH CONTRAST ??12/04/2024 TECHNIQUE: CT of the neck was performed with the administration of intravenous contrast. Multiplanar reformatted images are provided for review. Automated exposure control, iterative reconstruction, and/or weight based adjustment of the mA/kV was utilized to reduce the radiation dose to as low as reasonably achievable. COMPARISON: None. HISTORY: ORDERING SYSTEM PROVIDED HISTORY: choking feeling TECHNOLOGIST PROVIDED HISTORY: choking feeling Additional Contrast?->1 FINDINGS: PHARYNX/LARYNX: ??The tonsillar pillars are normal in appearance. ??The tongue is normal in appearance. ??The valleculae, epiglottis, aryepiglottic folds and pyriform sinuses appear unremarkable. ??The true and false vocal cords are normal in appearance. ??No mass or abscess is seen. SALIVARY GLANDS/THYROID: ??The parotid and submandibular glands appear unremarkable. ??The thyroid gland appears unremarkable. LYMPH NODES: ??No cervical or supraclavicular lymphadenopathy is seen. SOFT TISSUES: ??No appreciable soft tissue swelling or mass is seen. BRAIN/ORBITS/SINUSES: ??The visualized portion of the intracranial contents appear unremarkable. ??The visualized portion of the orbits, paranasal sinuses and mastoid air cells demonstrate no acute abnormality. LUNG APICES/SUPERIOR MEDIASTINUM: ??No focal consolidation is seen within the visualized lung apices. ??No superior mediastinal lymphadenopathy or mass. The visualized portion of the trachea appears unremarkable. BONES: ??No aggressive appearing lytic or blastic bony lesion. Procedure Note Seven Olmedo MD - 12/04/2024 EXAMINATION: CT OF THE NECK SOFT TISSUE WITH CONTRAST 12/04/2024 TECHNIQUE: CT of the neck was performed with the administration of intravenouscontrast. Multiplanar reformatted images are provided for review. Automatedexposure control, iterative reconstruction, and/or weight based adjustment of the mA/kV was utilized to reduce the radiation dose to as low as reasonably achievable. COMPARISON: None. HISTORY: ORDERING SYSTEM PROVIDED HISTORY: choking feeling TECHNOLOGIST PROVIDED HISTORY: choking feeling Additional Contrast?->1 FINDINGS: PHARYNX/LARYNX: The tonsillar pillars are normal in appearance. Thetongue is normal in appearance. The valleculae, epiglottis, aryepiglottic foldsand pyriform sinuses appear unremarkable. The true and false vocal cordsare normal in appearance. No mass or abscess is seen. SALIVARY GLANDS/THYROID: The parotid and submandibular glands appear unremarkable. The thyroid gland appears unremarkable. LYMPH NODES: No cervical or supraclavicular lymphadenopathy is seen. SOFT TISSUES: No appreciable soft tissue swelling or mass is seen. BRAIN/ORBITS/SINUSES: The visualized portion of the intracranialcontents appear unremarkable. The visualized portion of the orbits, paranasalsinuses and mastoid air cells demonstrate no acute abnormality. LUNG APICES/SUPERIOR MEDIASTINUM: No focal consolidation is seen withinthe visualized lung apices. No superior mediastinal lymphadenopathy ormass. The visualized portion of the trachea appears unremarkable. BONES: No aggressive appearing lytic or blastic bony lesion. IMPRESSION: No acute abnormality of the soft tissue structures of the neck. Authorizing ProviderResult TypeResult StatusShirloren Mcclure PRICER - MGMT SPECIALIST IMG CT ORDERABLESFinal Result * CT CHEST PULMONARY EMBOLISM W CONTRAST (12/04/2024 7:57 AM EDT) Only the most recent of2 resultswithin the time period is included. Anatomical RegionLateralityModalityChestComputed TomographySpecimen (Source) Anatomical Location / LateralityCollection Method / VolumeCollection Time Received Time12/04/2024 8:50 AM EDT Impressions 12/04/2024 8:53 AM EDT 1. No acute pulmonary embolism or acute cardiopulmonary process. Narrative 12/04/2024 8:53 AM EDT EXAM: CTA of the Chest with contrast for PE 12/04/2024 07:57:32 AM TECHNIQUE: CTA of the chest was performed after the administration of intravenous contrast. Multiplanar reformatted images are provided for review. MIP images are provided for review. Automated exposure control, iterative reconstruction, and/or weight based adjustment of the mA/kV was utilized to reduce the radiation dose to as low as reasonably achievable. COMPARISON: Comparison study 10/27/2024. CLINICAL HISTORY: sob / tachycardia. FINDINGS: PULMONARY ARTERIES: Pulmonary arteries are adequately opacified for evaluation. No pulmonary embolism. Main pulmonary artery is normal in caliber. MEDIASTINUM: The heart and pericardium demonstrate no acute abnormality. There is no acute abnormality of the thoracic aorta. LYMPH NODES: No mediastinal, hilar or axillary lymphadenopathy. LUNGS AND PLEURA: Stable mild peribronchial wall thickening bilaterally. The lungs are otherwise without acute process. No focal consolidation or pulmonary edema. No pleural effusion or pneumothorax. UPPER ABDOMEN: Limited images of the upper abdomen are unremarkable. SOFT TISSUES AND BONES: No acute bone or soft tissue abnormality. Procedure Note North Murillo MD - 12/04/2024 EXAM: CTA of the Chest with contrast for PE 12/04/2024 07:57:32 AM TECHNIQUE: CTA of the chest was performed after the administration of intravenouscontrast. Multiplanar reformatted images are provided for review. MIPimages are provided for review. Automated exposure control, iterativereconstruction, and/or weight based adjustment of the mA/kV was utilized to reduce the radiation dose to aslow as reasonably achievable. COMPARISON: Comparison study 10/27/2024. CLINICAL HISTORY: sob / tachycardia. FINDINGS: PULMONARY ARTERIES: Pulmonary arteries are adequately opacified for evaluation. No pulmonary embolism. Main pulmonary artery is normal in caliber. MEDIASTINUM: The heart and pericardium demonstrate no acute abnormality. There is noacute abnormality of the thoracic aorta. LYMPH NODES: No mediastinal, hilar or axillary lymphadenopathy. LUNGS AND PLEURA: Stable mild peribronchial wall thickening bilaterally. The lungs areotherwise without acute process. No focal consolidation or pulmonaryedema. No pleural effusion or pneumothorax. UPPER ABDOMEN: Limited images of the upper abdomen are unremarkable. SOFT TISSUES AND BONES: No acute bone or soft tissue abnormality. IMPRESSION: 1. No acute pulmonary embolism or acute cardiopulmonary process. Authorizing ProviderResult TypeResult StatusShirloren Mcclure PRICER - [facility] IM CT ORDERABLESFinal Result * (ABNORMAL) Basic Metabolic Panel w/ Reflex to MG (12/04/2024 6:00 AM EDT) Only the most recent of3 resultswithin the time period is included. ComponentValueRef RangeTest MethodAnalysis TimePerformed AtPathologist Signature [id number] - 145 mmol/L1 6:00 AM [facility] Potassium4.23.7 - 5.3 mmol/L1 6:00 AM [facility] RUEBbtijxxy98344 - 107 mmol/L1 6:00 AM [facility] IJKDN68332 - 31 mmol/L1 6:00 AM [facility] Anion Vrw715 - 16 mmol/L1 6:00 AM [facility] Xuifvrr902(H)74 - 99 mg/dL12/04/2024 6:00 AM [facility] HWV856 - 23 mg/dL12/04/2024 6:00 AM [facility] Creatinine0.70.50 - 0.90 mg/dL12/04/2024 6:00 AM [facility] LABEst, Glom Filt Rate>90>60 mL/min/1.75w25612/04/2024 6:00 AM [facility] LABComment: ? These results are not intended [...] therapy that affects renal tubular secretion. BUN/Creatinine Ztvyb371 - 6:00 AM [facility] LABCalcium9.78.6 - 10.4 mg/dL12/04/2024 6:00 AM [facility] LABSpecimen (Source)Anatomical Location / LateralityCollection Method / Volume Collection TimeReceived TimeBLOOD SPECIMEN / Aqujnqg8812/04/2024 6:00 AM EDT 12/04/2024 6:24 AM EDT Narrative Authorizing ProviderResult TypeResult StatusNikkie Lala PRICER - CNPCHEMISTRY ORDERABLESFinal ResultPerforming OrganizationAddressCity/State/ZIP CodePhone Number [facility] [address] [phone] * (ABNORMAL) T4, Free (12/04/2024 6:00 AM EDT)ComponentValueRef RangeTest Method Analysis TimePerformed AtPathologist SignatureT4 Free1.7(H)0.92 - 1.68 ng/dL 12/04/2024 6:00 AM [facility] LABORATORIESSpecimen (Source)Anatomical Location / LateralityCollection Method / VolumeCollection TimeReceived TimeBloodBLOOD SPECIMEN / Uzfpkzg3812/04/2024 6:00 AM EDT1 7:30 AM EDT Narrative Authorizing ProviderResult TypeResult StatusMarysol Mcclure PRICER - MGMT SPECIALIST CHEMISTRY ORDERABLESFinal ResultPerforming OrganizationAddressCity/State/ZIP CodePhone Number [facility] [address] [place] [address], [facility] [phone] [facility] [address] [place], [place] [address] [phone] * XR CHEST PORTABLE (12/03/2024 10:02 PM EDT) Only the most recent of4 resultswithin the time period is included. Anatomical RegionLateralityModalityChestComputed RadiographySpecimen (Source) Anatomical Location / LateralityCollection Method / VolumeCollection Time Received Time12/03/2024 10:50 PM EDT Impressions 12/03/2024 10:51 PM EDT No evidence of acute cardiopulmonary disease. Narrative 12/03/2024 10:51 PM EDT EXAMINATION: ONE XRAY VIEW OF THE CHEST 12/03/2024 10:02 pm COMPARISON: 11/16/2024 chest radiograph HISTORY: ORDERING SYSTEM PROVIDED HISTORY: SOB TECHNOLOGIST PROVIDED HISTORY: SOB FINDINGS: The cardiomediastinal silhouette is normal in size and contour. ??No focal airspace disease. ??No pleural effusion or pneumothorax. ??No evidence of acute osseous abnormality. Procedure Note Gardenia Good MD - 12/03/2024 EXAMINATION: ONE XRAY VIEW OF THE CHEST 12/03/2024 10:02 pm COMPARISON: 11/16/2024 chest radiograph HISTORY: ORDERING SYSTEM PROVIDED HISTORY: SOB TECHNOLOGIST PROVIDED HISTORY: SOB FINDINGS: The cardiomediastinal silhouette is normal in size and contour. Nofocal airspace disease. No pleural effusion or pneumothorax. No evidence ofacute osseous abnormality. IMPRESSION: No evidence of acute cardiopulmonary disease. Authorizing ProviderResult TypeResult StatusAdam Giselle Potts [facility] DIAGNOSTIC IMAGING ORDERABLESFinal Result * EKG 12 Lead (12/03/2024 9:48 PM EDT) Only the most recent of6 resultswithin the time period is included. ComponentValueRef RangeTest MethodAnalysis TimePerformed AtPathologist Signature Ventricular Krhx193KGBPHHW MTH RADIOLOGYAtrial [id number] [facility] RADIOLOGYP-R Sogqkuro839apYYPD [facility] RADIOLOGYQRS Swfrurot342xkCQQY [facility] RADIOLOGYQ-T Interval 370msMHPN [facility] RADIOLOGYQTc Calculation (Subha)507msMHUNC [facility] RADIOLOGYP Axis19 degreesHAWTHORN CHILDR[facility] RADIOLOGYR Talisheek-41degreesHAWTHORN CHILDREN'S [facility]IAT[facility] RADIOLOGYT Kkky98behjhsuASEO MTH RADIOLOGYSpecimen (Source)Anatomical Location / LateralityCollection Method / VolumeCollection TimeReceived Time12/03/2024 9:48 PM EDT Narrative [facility] RADIOLOGY - 12/03/2024 11:02 PM EDT Consider ACUTE DE if LBBB is new Sinus tachycardia Left axis deviation Left bundle branch block Abnormal ECG When compared with ECG of 12-Nov-2024 15:40, No significant change was found Confirmed by Ger Garcia ([id number]) on 12/03/2024 11:02:46 PM Procedure Note Ger Garcia MD - 12/03/2024 Consider ACUTE DE if LBBB is new Sinus tachycardia Left axis deviation Left bundle branch block Abnormal ECG When compared with ECG of 12-Nov-2024 15:40, No significant change was found Confirmed by Ger Garcia ([id number]) on 12/03/2024 11:02:46 PM Authorizing ProviderResult TypeResult StatusAda Giselle Potts RAVINDER ORDERABLESFinal ResultPerforming OrganizationAddressCity/State/ZIP CodePhone Number [facility] RADIOLOGY * XR CHEST (2 VW) (11/16/2024 8:07 AM EDT) Only the most recent of2 resultswithin the time period is included. Anatomical RegionLateralityModalityChestComputed RadiographySpecimen (Source) Anatomical Location / LateralityCollection Method / VolumeCollection Time Received DxitBviyh24/22/2025 10:58 AM EDT Impressions 11/16/2024 10:59 AM EDT 1. No acute cardiopulmonary process detected. Narrative 11/16/2024 10:59 AM EDT EXAM: 2 VIEW(S) XRAY OF THE CHEST 11/16/2024 08:07:20 AM COMPARISON: 11/12/2024 CLINICAL HISTORY: Bronchitis. FINDINGS: LUNGS AND PLEURA: No focal pulmonary opacity. No pulmonary edema. No pleural effusion. No pneumothorax. HEART AND MEDIASTINUM: No acute abnormality of the cardiac and mediastinal silhouettes. BONES AND SOFT TISSUES: Multilevel degenerative disk disease in spine. No acute osseous abnormality. Procedure Note Mathieu Castillo MD - 11/16/2024 EXAM: 2 VIEW(S) XRAY OF THE CHEST 11/16/2024 08:07:20 AM COMPARISON: 11/12/2024 CLINICAL HISTORY: Bronchitis. FINDINGS: LUNGS AND PLEURA: No focal pulmonary opacity. No pulmonary edema. No pleural effusion. No pneumothorax. HEART AND MEDIASTINUM: No acute abnormality of the cardiac and mediastinal silhouettes. BONES AND SOFT TISSUES: Multilevel degenerative disk disease in spine. No acute osseousabnormality. IMPRESSION: 1. No acute cardiopulmonary process detected. Authorizing ProviderResult TypeResult StatusMark Remi Hastings MDBharath DIAGNOSTIC IMAGING ORDERABLESFinal Result * (ABNORMAL) Comprehensive Metabolic Panel w/ Reflex to MG (11/16/2024 5:28 AM EDT) Only the most recent of5 resultswithin the time period is included. ComponentValueRef RangeTest MethodAnalysis TimePerformed AtPathologist Signature Rjhyjx158597 - 145 mmol/L11/16/2024 5:28 AM [facility] Potassium4.33.7 - 5.3 mmol/L11/16/2024 5:28 AM [facility] EKTAjwcpyck80688 - 107 mmol/L11/16/2024 5:28 AM [facility] UTPAD55852 - 31 mmol/L11/16/2024 5:28 AM [facility] Anion Fzn563 - 16 mmol/L11/16/2024 5:28 AM [facility] Zemxcaw932(H)74 - 99 mg/dL11/16/2024 5:28 AM [facility] BUN29(H)8 - 23 mg/dL11/16/2024 5:28 AM [facility] Creatinine0.70.50 - 0.90 mg/dL11/16/2024 5:28 AM [facility] LABEst, Glom Filt Rate89>60 mL/min/1.87b719/ 5:28 AM [facility] LABComment: ? These results are not intended [...] therapy that affects renal tubular secretion. BUN/Creatinine Ratio41(H) - 5:28 AM [facility] LABCalcium9.78.6 - 10.4 mg/dL11/16/2024 5:28 AM [facility] LABTotal Protein5.7(L)6.6 - 8.7 g/dL11/16/2024 5:28 AM [facility] LABAlbumin3.63.5 - 5.2 g/dL11/16/2024 5:28 AM [facility] LABAlbumin/Globulin Ratio1.71.0 - 2. 5:28 AM [facility] LABTotal Bilirubin0.30.00 - 1.20 mg/dL11/16/2024 5:28 AM [facility] LABAlkaline Hynaycspzez2188 - 104 U/L11/16/2024 5:28 AM [facility] UJHASM1571 - 35 U/L11/16/2024 5:28 AM [facility] SXTTET8637 - 35 U/L11/16/2024 5:28 AM [facility] LABSpecimen (Source)Anatomical Location / Laterality Collection Method / VolumeCollection TimeReceived TimeBLOOD SPECIMEN / Unknown 11/16/2024 5:28 AM EDT11/16/2024 6:21 AM EDT Narrative Authorizing ProviderResult TypeResult StatusMark Remi Hastings MDCHEMISTRY ORDERABLESFinal ResultPerforming OrganizationAddressCity/State/ZIP CodePhone Number [facility] [address] [place] [id number], [facility] [phone] * Respiratory Panel, Molecular, with COVID-19 (Restricted: peds pts or suitable admitted adults) (11/12/2024 9:04 PM EDT) Only the most recent of2 resultswithin the time period is included. ComponentValueRef RangeTest MethodAnalysis TimePerformed AtPathologist Signature Specimen Description.NASOPHARYNGEAL SWAB11/12/2024 9:04 PM EDTMERCY LABORATORIES Adenovirus PCRNot DetectedNot Nuwoukhj32/18/2025 9:04 PM EDTMERCY LABORATORIES Coronavirus 229E PCRNot DetectedNot Tpgwnczc34/18/2025 9:04 PM EDTMAD[facility] LABORATORIESCoronavirus HKU1 PCRNot DetectedNot Nmnymguc88/18/2025 9:04 PM EDT [facility] LABORATORIESCoronavirus NL63 PCRNot DetectedNot Vcjplzyp05/18/2025 9:[address] HELENACoronavirus OC43 PCRNot DetectedNot Trphhrhm06/18/2025 9:04 PM EDTMBAN[facility]ERY BENUUKDCPSRZBQKY-QxO-6, PCRNot DetectedNot Udagkugy55/18/2025 9:04 PM EDTMERCY [facility]ENTERHuman Metapneumovirus PCRNot DetectedNot Detected 11/12/2024 9:04 PM EDTMERCY LABORATORIESRhino/Enterovirus PCRNot DetectedNot Bbdkcmug03/18/2025 9:04 PM EDTMERCY LABORATORIESInfluenza A by PCRNot Detected Not Kbtghkzf15/18/2025 9:04 PM EDTMERC LABORATORIESInfluenza B by PCRNot DetectedNot Wepfvfkd25/18/2025 9:04 PM EDTMBANNER [facility]OD [facility]ENTERY LABORATORIESParainfluenza 1 PCR Not DetectedNot Ocqcediy98/18/2025 9:04 PM EDTMERCY LABORATORIESParainfluenza 2 PCRNot DetectedNot Egvvvawj47/18/2025 9:04 PM EDTMERCY citizenmadeParainfluenza 3 PCRNot DetectedNot Cwesucjg13/18/2025 9:04 PM EDTMERCY LABORATORIES Parainfluenza 4 PCRNot DetectedNot Vxjhizdl47/18/2025 9:04 PM EDTMERCY LABORATORIESResp Syncytial Virus PCRNot DetectedNot Ioauistk71/18/2025 9:04 PM EDTMBAN[facility]ERY [facility]ICAL CENTERBordetella parapertussis by PCRNot DetectedNot Detected 11/12/2024 9:04 PM EDTMERCY LABORATORIESB Pertussis by PCRNot DetectedNot Krsarovp06/18/2025 9:04 PM EDTMERCY LABORATORIESChlamydia pneumoniae By PCRNot DetectedNot Bbipdxnr93/18/2025 9:04 PM EDTMERCY LABORATORIESMycoplasma pneumo by PCRNot DetectedNot Yduoyitt67/18/2025 9:04 PM EDTMERCY LABORATORIESComment: Performed by multiplexed nucleic acid assay.Specimen (Source)Anatomical Location / LateralityCollection Method / VolumeCollection TimeReceived TimeNASOPHARYNGEAL SWAB / Jysmohd7611/12/2024 9:04 PM EDT11/12/2024 9:10 PM EDT Narrative Authorizing ProviderResult TypeResult StatusMark Remi Darling MDMICROBIOLOGY - GENERAL ORDERABLESFinal ResultPerforming OrganizationAddressCity/State/ZIP Code Phone Number [facility] [address] [place] [address], [facility] [phone] [place] [id number], [facility] [phone] * (ABNORMAL) Blood Gas, Venous (11/12/2024 12:40 PM EDT) Only the most recent of2 resultswithin the time period is included. ComponentValueRef RangeTest MethodAnalysis TimePerformed AtPathologist Signature pH, Ven7.4027.32 - 7.4209 12:40 PM [facility] pCO2, Ven46.839 - 55 mm Hg11/12/2024 12:40 PM [facility] LABPO2, Ven52.5(H)30.0 - 50.0 mm Hg11/12/2024 12:40 PM [facility] LABHCO3, Puklir07.524.0 - 30.0 mmol/L11/12/2024 12:40 PM [facility] LABPositive Base Excess, Ven2.9(H)0.0 - 2.0 mmol/L 11/12/2024 12:40 PM [facility] LABO2 Sat, Ven87.0(H)60.0 - 85.0 %11/12/2024 12:40 PM [facility] LABPt Temp37.0 11/12/2024 12:40 PM [facility] LABpH, Geraldo, Temp Adj7.402 7.320 - 7.0729911/12/2024 12:40 PM [facility] LABpCO2, Geraldo, Temp Adj46.839.0 - 55.0 mmHg11/12/2024 12:40 PM [facility] LABpO2, Geraldo, Temp Adj52.5(H)30.0 - 50.0 mmHg11/12/2024 12:40 PM [facility] LABAllen TestNOT LZLHRVWERM16/18/2025 12:40 PM [facility] USLUCZ86411/18/2025 12:40 PM [facility] Specimen (Source)Anatomical Location / LateralityCollection Method / Volume Collection TimeReceived Time11/12/2024 12:40 PM EDT11/12/2024 12:41 PM EDT Narrative Authorizing ProviderResult TypeResult StatusChlaci Arriaga DOCHEMISTRY ORDERABLESFinal ResultPerforming OrganizationAddressCity/State/ZIP CodePhone Number [facility] [address] [place] [address], [facility] [phone] * (ABNORMAL) Glucose, Whole Blood (10/30/2024 8:15 PM EDT)ComponentValueRef RangeTest MethodAnalysis TimePerformed AtPathologist SignaturePOC Bjvzebs919 (H)74 - 100 mg/dL10/30/2024 8:15 PM [facility] Specimen (Source)Anatomical Location / LateralityCollection Method / Volume Collection TimeReceived Time10/30/2024 8:15 PM EDT10/30/2024 8:22 PM EDT Narrative Authorizing ProviderResult TypeResult StatusArchie Hastings MDCHEMISTRY ORDERABLESFinal ResultPerforming OrganizationAddressCity/State/ZIP CodePhone Number [facility] [address] [place] [address] * Microscopic Urinalysis (10/27/2024 11:08 AM EDT)ComponentValueRef RangeTest MethodAnalysis TimePerformed AtPathologist SignatureWBC, UANone0 - 5 /HPF 10/27/2024 11:08 AM [facility] LABRBC, UA0 TO 20 - 2 /HPF 10/27/2024 11:08 AM [facility] LABEpithelial Cells, UA0 TO 20 - 25 /HPF10/27/2024 11:08 AM [facility] LABSpecimen (Source)Anatomical Location / LateralityCollection Method / VolumeCollection TimeReceived Time10/27/2024 11:08 AM EDT10/27/2024 11:21 AM EDT Narrative Authorizing ProviderResult TypeResult StatusAron CHÁVEZ ORDERABLESFinal ResultPerforming OrganizationAddressCity/State/ZIP CodePhone Number [facility] [address] [phone] * (ABNORMAL) Urinalysis (10/27/2024 11:08 AM EDT)ComponentValueRef RangeTest MethodAnalysis TimePerformed AtPathologist SignatureColor, UAYellowYellow 10/27/2024 11:08 AM [facility] LABTurbidity UAClearClear 10/27/2024 11:08 AM [facility] LABGlucose, Ur3+(A) NEGATIVE mg/dL10/27/2024 11:08 AM [facility] Bilirubin, WjipnYJGXRRTSKNDEUQOZ72/02/2025 11:08 AM [facility] LABKetones, UrineNEGATIVENEGATIVE mg/dL10/27/2024 11:08 AM [facility] LABSpecific [place], UA<1.005(L)1.010 - 1.4412210/27/2024 11:08 AM [facility] LABUrine Hgb1+(A)INNXHYTK96/02/2025 11:08 AM [facility] LABpH, Urine6.05.0 - 9.009 11:08 AM [facility] LABProtein, UANEGATIVENEGATIVE mg/dL 10/27/2024 11:08 AM [facility] LABUrobilinogen, Urine Normal0.0 - 1.0 EU/dL10/27/2024 11:08 AM [facility] Nitrite, TsremRBXXBHVMQMBVENNU83/02/2025 11:08 AM [facility] LABLeukocyte Esterase, SfgztUCVBSNLTFHHDLKUL18/02/2025 11:08 AM EDT [facility] LABSpecimen (Source)Anatomical Location / LateralityCollection Method / VolumeCollection TimeReceived TimeUrineURINE SPECIMEN / Gjvwirf1810/27/2024 11:08 AM EDT10/27/2024 11:21 AM EDT Narrative Authorizing ProviderResult TypeResult Jarrett CHÁVEZ ORDERABLESFinal ResultPerforming OrganizationAddressCity/State/ZIP CodePhone Number [facility] [address] [phone] * EXTENDED CARDIAC HOLTER MONITOR 3D-7D (OFFICE HOOKUP & IN-HOUSE ANALYSIS) (10/19/2024 3:14 PM EDT)Anatomical RegionLateralityModalityCardiac Diagnostic Specimen (Source)Anatomical Location / LateralityCollection Method / Volume Collection TimeReceived Time Narrative 10/29/2024 2:11 PM EDT - Predominant rhythm: NSR - Bundle Branch Block (BBB) - Atrial Tachycardia (AT) and/or short runs of atrial fibrillation, 57 episodes, Longest 33.0 m @ Avg 115 bpm up to 155 bpm, Fastest 4 beats @ Avg 180 bpm up to 223 bpm - Ectopic Atrial Rhythm (EAR) - Ectopic Atrial Beat(s) (EAB) - Ectopic Atrial Run(s) (EA Run) - PAC 0.3 % - PVC 0.1 % Multiple episodes of atrial tachycardia and/or short runs of atrial fibrillation as above. No symptoms were reported. Clinical correlation required. ?? Authorizing ProviderResult TypeResult Lorie Lane APRN - CNPCV CARDIAC DIAGNOSTIC ORDERABLESFinal Result * AMI ISABEL DIGITAL DIAGNOSTIC UNILATERAL RIGHT (06/22/2024 2:35 PM EDT) Anatomical RegionLateralityModalityBreastRightMammographySpecimen (Source) Anatomical Location / LateralityCollection Method / VolumeCollection Time Received Time06/22/2024 2:35 PM EDT Addenda This result is currently undergoing an addendum. Addendum by Romaine Moore MD on 07/06/2024 3:14 PM EDT Begin Addendum #1 EXAM: Ultrasound-guided right breast biopsy ADDENDUM: [id number] EXAM DATE AND TIME:06/22/2024 1:52 PM EDT PATHOLOGY RESULT SECTION:Benign breast tissue with prominent cyst formation associated stromal fibrosis. Negative for atypia and malignancy PATHOLOGY OUTCOME SECTION:Benign and concordant RECOMMENDATION: BIRADS: 2 - Benign, no evidence of malignancy. Normal interval followup is recommended in 12 months. OVERALL ASSESSMENT- BENIGN A letter of notification will be sent to the patient regarding the results. Report electronically signed by: Dr. Romaine Moore Impressions 06/22/2024 2:49 PM EDT Successful ultrasound-guided biopsy of right breast mass. Overall assessment: Pathology pending. An addendum will be placed when the pathology results are available. The patient will follow-up with her physician with the results. Narrative 06/22/2024 2:49 PM EDT EXAM: ULTRASOUND-GUIDED BIOPSY RIGHT BREAST [id number] EXAM DATE AND TIME:06/22/2024 1:52 PM EDT COMPARISON STUDIES: Priors, most recent 06/10/2024 INDICATION: Suspicious right breast mass DESCRIPTION: The risks and benefits of the procedure were explained to the patient. Written informed consent was obtained. Pause and confirm was performed. Preprocedure mammogram was performed. There are scattered areas of fibroglandular density. Stable calcifications unchanged mass in the medial aspect of the right breast. There appears to be an asymmetry adjacent to this mass potentially correlated with sonographic abnormality. The right breast mass was targeted. The skin was cleansed. Local anesthetic was administered. A small skin aida was made in the breast. Under ultrasound guidance, a 16-gauge biopsy needle was inserted into the appropriate position through an introducer device. Then, multiple core specimens were obtained. A coil-shaped biopsy marking clip was then placed at the biopsy site. Postprocedure mammogram demonstrates the clip in appropriate position. The patient tolerated the procedure well, without any immediate complications. Report electronically signed by: Dr. Romaine Moore Procedure Note Romaine Moore MD - 06/22/2024 EXAM: ULTRASOUND-GUIDED BIOPSY RIGHT BREAST [id number] EXAM DATE AND TIME:06/22/2024 1:52 PM EDT COMPARISON STUDIES: Priors, most recent 06/10/2024 INDICATION: Suspicious right breast mass DESCRIPTION: The risks and benefits of the procedure were explained to the patient. Written informed consent was obtained. Pause and confirm wasperformed. Preprocedure mammogram was performed. There are scattered areas of fibroglandular density. Stable calcifications unchanged mass in the medial aspect of the right breast. There appears to be an asymmetry adjacent tothis mass potentially correlated with sonographic abnormality. The right breast mass was targeted. The skin was cleansed. Localanesthetic was administered. A small skin aida was made in the breast. Under ultrasound guidance, a 16-gauge biopsy needle was inserted into the appropriateposition through an introducer device. Then, multiple core specimens were obtained.A coil-shaped biopsy marking clip was then placed at the biopsy site. Postprocedure mammogram demonstrates the clip in appropriate position. The patient tolerated the procedure well, without any immediatecomplications. Report electronically signed by: Dr. Romaine Moore IMPRESSION: Successful ultrasound-guided biopsy of right breast mass. Overall assessment: Pathology pending. An addendum will be placed when the pathology resultsare available. The patient will follow-up with her physician with theresults. Authorizing ProviderResult TypeResult StatusTrryne James [facility] M[facility] ORDERABLESEdited * Hemoglobin A1C (05/20/2024 9:49 AM EDT)ComponentValueRef RangeTest Method Analysis TimePerformed AtPathologist SignatureHemoglobin A1C6.04.0 - 6.0 % 05/20/2024 9:49 AM EDTMERCY LABORATORIESEstimated Avg Qyfzdku878xn/dL 05/20/2024 9:49 AM EDTMERCY LABORATORIESComment: The ADA and AACC recommend providing the estimated average glucose result to permit better patient understanding of their HBA1c result. Specimen (Source)Anatomical Location / LateralityCollection Method / Volume Collection TimeReceived TimeBloodBLOOD SPECIMEN / Svnmesx9805/20/2024 9:49 AM EDT 05/20/2024 9:50 AM EDT Narrative Authorizing ProviderResult TypeResult StatusAli F O Ahaugustad MDCHEMISTRY ORDERABLES Final ResultPerforming OrganizationAddressCity/State/ZIP CodePhone Number [facility] [address] [place] [address], [facility] [phone] [address] [place] [address], [facility] [phone] * (ABNORMAL) Lipid Panel (05/20/2024 9:49 AM EDT)ComponentValueRef RangeTest MethodAnalysis TimePerformed AtPathologist SignatureCholesterol, Iqwcq319(H)0 - 199 mg/dL05/20/2024 9:49 AM EDTMERCY LABORATORIESComment: Cholesterol Guidelines: <200 Desirable 200-240 ??Borderline >240 Undesirable HDL80>40 mg/dL05/20/2024 9:49 AM EDTMERCY LABORATORIESComment: HDL Guidelines: <40 Undesirable 40-59 ?Borderline >59 Desirable LDL Oailwuxbxyu962 - 100 mg/dL05/20/2024 9:49 AM EDTMERCY LABORATORIESComment: LDL Guidelines: <100 Desirable 100-129 ?? Near to/above Desirable 130-159 ?? Borderline >159 Undesirable Direct (measured) LDL and calculated LDL are not interchangeable tests. Chol/HDL Ratio2. 9:49 AM EDTMERCY OXWNEQJIOYWTFohpcettvvjlw741(H)<150 mg/dL05/20/2024 9:49 AM EDTMERCY LABORATORIESComment: Triglyceride Guidelines: <150 Desirable 150-199 ??Borderline 200-499 ??High >499 Very high Based on AHA Guidelines for fasting triglyceride, November 2011. VLDL32(H)1 - 30 mg/dL05/20/2024 9:49 AM EDTMERCY LABORATORIESSpecimen (Source) Anatomical Location / LateralityCollection Method / VolumeCollection Time Received TimeBloodBLOOD SPECIMEN / Dyxvwaz4405/20/2024 9:49 AM EDT05/20/2024 9:50 AM EDT Narrative Authorizing ProviderResult TypeResult StatusAli F O Ahmad MDCHEMISTRY ORDERABLES Final ResultPerforming OrganizationAddressCity/State/ZIP CodePhone Number [facility] [address] [place] [address], [facility] [phone] [facility] [address] [phone], [facility] [phone] * DEXA BONE DENSITY AXIAL SKELETON (11/01/2022 10:40 AM EDT)Anatomical Region LateralityModalityHead, C-spine, T-spine, L-spine, ChestDigital Radiography Specimen (Source)Anatomical Location / LateralityCollection Method / Volume Collection TimeReceived Time11/01/2022 10:40 AM EDT Impressions 11/01/2022 12:51 PM EDT Bone mineral density WHO Classification: Osteopenia Fracture riskincreased REFERENCE: In children, postmenopausal women and males under age 50 not at increased risk for fractures, only Z-Scores, not T-Scores, are used to indicate fracture risk. A Z-Score above -2.0 is defined as within the expected range for age and Z-Score at or less than -2.0 is below the expected range for age. A Z-Score below the expected range for age in a patient with recent fractures and/or chronic corticosteroid treatment is consistent with a diagnosis of osteoporosis. In postmenopausal women and males over 50, comparison of the measured bone mineral density with the average value in young normal subjects (the T-Score) has been found to be useful in assessing fracture risk. Fracture risk approximately doubles for each 1.0 standard deviation (SD) that the individuals hip or spine bone mineral density is below the average value of young normal subjects. The World Health Organization (WHO) has provided the following definitions: 1. Normal: T-Score within one standard deviation of young adult mean value (T-Score at or above -1.0). 2. Osteopenia (low bone mass): T-Score more than one standard deviation below the young adult mean but less than 2.5 standard deviations below the young adult mean (T-Score between -1.0 and -2.5). 3. Osteoporosis: T-Score at or more than 2.5 standard deviations below the young adult mean (T-Score at or less than -2.5). 4. Severe Osteoporosis (established osteoporosis): T-Score more than 2.5 standard deviations below young adult and one or more fragility fracture (T-Score less than -2.5 plus fragility fractures). Narrative 11/01/2022 12:51 PM EDT DEXA Bone Density Study INDICATION: Postmenopausal. Evaluate bone mineral density. COMPARISON:No prior DEXA scan available for comparison at the time of this dictation. FINDINGS: The bone density study was assessed by dual-energy x-ray absorptiometry with the [employer] scanner. The test results are expressed in T-Score, which is used for diagnosis for osteoporosis, and reflects the standard deviations from the mean peak bone mineral density in young adults. Additional information regarding the Z-Score reflects the standard deviations from the mean peak bone mineral density for age- and gender- matched subject. Lumbar Spine (L1-L4): BMD (gm/cm2): 1.582 T-Score: 3.1 Left Hip TOTAL: BMD (gm/cm2): 0.873 T-Score: -1.1 Left Hip NECK: BMD (gm/cm2): 0.834 T-Score: -1.5 FRAX analysis of 10 year fracture risk: Major osteoporotic fracture:8.0% Hip fracture:0.9% Report electronically signed by: Dr. Juan Alberto Shannon Procedure Note Juan Alberto Shannon MD - 11/01/2022 DEXA Bone Density Study INDICATION: Postmenopausal. Evaluate bone mineral density. COMPARISON:No prior DEXA scan available for comparison at the time of this dictation. FINDINGS: The bone density study was assessed by dual-energy x-ray absorptiometry with the [employer] scanner. The test results are expressed in T-Score, which is used for diagnosis for osteoporosis, and reflects the standard deviations from the mean peak bone mineral density in young adults. Additional information regarding theZ-Score reflects the standard deviations from the mean peak bone mineral densityfor age- and gender- matched subject. Lumbar Spine (L1-L4): BMD (gm/cm2): 1.582 T-Score: 3.1 Left Hip TOTAL: BMD (gm/cm2): 0.873 T-Score: -1.1 Left Hip NECK: BMD (gm/cm2): 0.834 T-Score: -1.5 FRAX analysis of 10 year fracture risk: Major osteoporotic fracture:8.0% Hip fracture:0.9% Report electronically signed by: Dr. Juan Alberto Neitlich IMPRESSION: Bone mineral density WHO Classification: Osteopenia Fractureriskincreased REFERENCE: In children, postmenopausal women and males under age 50 not at increasedrisk for fractures, only Z-Scores, not T-Scores, are used to indicate fracturerisk. A Z-Score above -2.0 is defined as within the expected range for age andZ-Score at or less than -2.0 is below the expected range for age. A Z-Score belowthe expected range for age in a patient with recent fractures and/or chronic corticosteroid treatment is consistent with a diagnosis of osteoporosis. In postmenopausal women and males over 50, comparison of the measured bone mineral density with the average value in young normal subjects (theT-Score) has been found to be useful in assessing fracture risk. Fracture risk approximately doubles for each 1.0 standard deviation (SD) that theindividuals hip or spine bone mineral density is below the average value of youngnormal subjects. The World Health Organization (WHO) has provided the following definitions: 1. Normal: T-Score within one standard deviation of young adult mean value (T-Score at or above -1.0). 2. Osteopenia (low bone mass): T-Score more than one standard deviationbelow the young adult mean but less than 2.5 standard deviations below the youngadult mean (T-Score between -1.0 and -2.5). 3. Osteoporosis: T-Score at or more than 2.5 standard deviations below theyoung adult mean (T-Score at or less than -2.5). 4. Severe Osteoporosis (established osteoporosis): T-Score more than 2.5 standard deviations below young adult and one or more fragility fracture (T-Score less than -2.5 plus fragility fractures). Authorizing ProviderResult TypeResult StatusTroy Scottsboro DOIMG DEXA ORDERABLES Final Result * Microalbumin / Creatinine Urine Ratio (02/06/2021)Specimen (Source)Anatomical Location / LateralityCollection Method / VolumeCollection TimeReceived Time URINE SPECIMEN / Unknown Narrative Authorizing ProviderResult TypeResult StatusHistorical Provider KYLER ORDERABLESFinal Result * POCT Fecal Immunochemical Test (FIT) (02/10/2018 8:49 AM EST)ComponentValueRef RangeTest MethodAnalysis TimePerformed AtPathologist SignatureOccult Blood FecalPOSITIVEControlPRESENTSpecimen (Source)Anatomical Location / Laterality Collection Method / VolumeCollection TimeReceived TimeSTOOL SPECIMEN / Unknown 02/10/2018 8:49 AM EST Narrative Authorizing ProviderResult TypeResult StatusGabriel Hernandez MDPOINT OF CARE TEST ORDERABLESFinal Result * DIABETES FOOT EXAM (07/26/2017) Narrative Authorizing ProviderResult TypeResult StatusGabriel Hernandez MDHEALTH MAINTENANCEFinal Result from Last 3 Months or Most Recently Relevant to Health Maintenance Insurance Advance Directives TypeDate RecordedPatient RepresentativeExplanationACP-Advance Directive07/04/2015 10:06 AMACP-Power of Attorney07/01/2015 9:21 AM * Full Code (Latest Code Status on File) Date ActivatedDate OahqblehrfsQqselckt21/9/2025 11:58 PM10 7:32 PM * Full Code Date ActivatedDate InactivatedComments11/12/2024 7:14 PM11/16/2024 4:33 PM * Full Code Date ActivatedDate InactivatedComments10/30/2024 12:45 PM11/01/2024 3:34 PM * Full Code Date ActivatedDate InactivatedComments09/15/2024 7:12 PM09/18/2024 2:57 PM * Full Code Date ActivatedDate SuvvapmyiwkUlqybibf85/2/2024 1:43 PM01/29/2024 8:38 PM NameRelationshipHealthcare Agent RelationshipCommunicationKrissmarcus SmithChild Primary Decision Maker* Dylan CatalanChildSecondary Decision Maker* Amadou CatalanChildSupplemental (Other) Decision Maker* Care Teams Team MemberRelationshipSpecialtyStart DateEnd Date Nicola James DO [address] [place] [address] PCP - GeneralFamily Medicine11/12/23
--- OUTSIDE RECORDS SUMMARY | 2024-12-25 04:36 | XMS_ITS | Encounter Summary ---
Author Organization [facility] Address [address], [address] [place] [address] Care Team Providers Care Milk Processing Worker Name Role Phone Nicola James DO Primary Care Provider [phone] Reason for Visit * ReasonOnset WzxrRiwbtxqcKvzwe82/27/2025 Encounter Details DateTypeDepartmentCare Team (Latest Contact Info)Xoohgfizquu94/27/2025Telephone [facility] Medical Providers at [address] [phone] Nicola James DO [address] [place] [address] Other Social History Tobacco UseTypesPacks/DayYears UsedDateSmoking Tobacco: NeverSmokeless [...] and heating?Not hard at all11/13/2023HQ-2AnswerDate RecordedPHQ-9 Total Oajjb183PRAPARE - TransportationAnswerDate RecordedIn the past 12 months, [...] steady place to sleep or slept in [facility] (including now)?No06/07/2022Housing Stability Vital SignAnswerDate RecordedIn [...] Domain Source: IP Abuse Screening AnswerDate RecordedPhysical pusmjPrnhjd13/10/2025Verbal lvixgPsiaku14/10/2025 Emotional fmzlgYvylek62/10/2025Financial pwqzhNsdrap44/10/2025Sexual abuseDenies 12/04/2024CommentsNoSex and Gender InformationValueDate RecordedSex Assigned at BirthNot on fileLegal SflCbwktc59/10/2013 6:14 PM ESTGender Identity Not on fileSexual OrientationNot on filedocumented as of this encounter Plan of Treatment DateTypeDepartmentCare Team (Latest Contact Info)Eugsohpfrss03/13/2025 2:45 PM ESTOffice Visit [facility] Part of [phone] Steven Porter, LINE [employer] - DECOMMISSIONING WELL SITE MANAGER [address] [place] [address] hosp f/u Covid/ COPD01/11/2025 10:00 AM ESTPharmacy Visit [facility] Medication Management [address] [place] [phone] CHF - Stopped Spironolactone Changed to Toprol 50 mg BID01/29/2025 12:20 PM EST Office Visit [facility] [place] [address] [place], [place] [phone] Nicola James DO [address] [place] [address] 4-6 wkdocumented as of this encounter Visit Diagnoses Not on filedocumented in this encounter Additional Health Concerns AssessmentNoted TimeA fall risk assessment has been completed for the patient 11/13/2023 6:59 AM EDTdocumented as of this encounter Care Teams Team MemberRelationshipSpecialtyStart DateEnd Date Nicola James DO [address] [place] [address] PCP - GeneralFamily Medicine11/12/23documented as of this encounter
--- OUTSIDE RECORDS SUMMARY | 2024-12-25 04:36 | XMS_ITS | Encounter Summary ---
Author Organization [facility] Address [address] [facility] [place] [address] Care Team Providers Care Medical Researcher Name Role Phone Nicola James MD Primary Care Provider [phone] Nicola James MD Primary Care Provider [phone] Encounter Details DateTypeDepartmentCare Team (Latest Contact Info)Nljamapdfcs90/25/2024Clinisync Result Encounter [facility] Unsolicited Gregorio Mancini, [address] [place] [address] Social History Tobacco UseTypesPacks/DayYears UsedDateSmoking Tobacco: NeverSmokeless Tobacco: NeverCommentsUnknownSex and Gender InformationValueDate RecordedSex Assigned at BirthNot on fileLegal EilGjphll22/06/2024 12:35 PM EDTGender IdentityNot on fileSexual OrientationNot on filedocumented as of this encounter Plan of Treatment DateTypeDepartmentCare Team (Latest Contact Info)Todjurrdpzy39/20/2025 9:30 AM ESTOffice Visit [facility] [address] [facility] [place] [address] Gregorio Mancini DO [address] [place] [address] documented as of this encounter Procedures Procedure NamePriorityDate/TimeAssociated DiagnosisCommentsXR KNEE 1 OR 2 VIEWS RIGHT01/20/2024 8:34 AM EST documented in this encounter Results * XR KNEE 1 OR 2 VIEWS RIGHT (01/20/2024 8:34 AM EST)Anatomical RegionLaterality ModalityOtherSpecimen (Source)Anatomical Location / LateralityCollection Method / VolumeCollection TimeReceived Time01/20/2024 8:34 AM EST Narrative 01/20/2024 3:46 PM EST Exam Date/Time: 01/20/2024 08:44 EST Reason for Exam: Post-op evaluation;Other (please specify) Report IMPRESSION: RIGHT TOTAL KNEE REPLACEMENT. CLINICAL INFORMATION: Postop COMMENT: 2 views. There is a right total knee prosthesis, in good position and alignment. There is gas in the soft tissues from the surgery. There are metallic surgical sherin along the anterior skin incision. Ordering Provider: Gregorio Mancini FINAL REPORT Dictated: ??01/20/2024 3:43 pm ? Kyle Lowery M.D. Signed (Electronic Signature): ??01/20/2024 3:43 pm Signed by: ??Kyle Lowery M.D. Transcribed by: ??LENO ? Technologist: ??BIRD Technical Comments Radiation Dose: Ka,r in mGy = . DAP = . Procedure Note Radiology, Radiologist, MD - 01/20/2024 Exam Date/Time: 01/20/2024 08:44 EST Reason for Exam: Post-op evaluation;Other (please specify) Report IMPRESSION: RIGHT TOTAL KNEE REPLACEMENT. CLINICAL INFORMATION: Postop COMMENT: 2 views. There is a right total knee prosthesis, in good positionand alignment. There is gas in the soft tissues from the surgery. There aremetallic surgical sherin along the anterior skin incision. Ordering Provider: Gregorio Mancini FINAL REPORT Dictated: 01/20/2024 3:43 pm Kyle Lowery M.D. Signed (Electronic Signature): 01/20/2024 3:43 pm Signed by: Kyle Lowery M.D. Transcribed by: LENO Technologist: BIRD Technical Comments Radiation Dose: Ka,r in mGy = . DAP = . Authorizing ProviderResult TypeResult StatusMicdorcas Mancini DOCLINISYNC [facility]AG[facility] Final Result documented in this encounter Visit Diagnoses Not on filedocumented in this encounter Care Teams Team MemberRelationshipSpecialtyStart DateEnd Date Nicola James MD PCP - GeneralFamily Medicine/ Nicola James MD [address] [place] [address] PCP - GeneralFamily Medicine05/19/24documented as of this encounter
--- OUTSIDE RECORDS SUMMARY | 2024-12-25 04:36 | XMS_ITS | Encounter Summary ---
Author Organization [facility] Address [address], [address] [place] [address] Care Team Providers Care Child Monitor Name Role Phone Nicola James DO Primary Care Provider [phone] Reason for Visit * ReasonOnset NjiuVyrugfvlSgzzm01/30/2025Respiratory concerns. Encounter Details DateTypeDepartmentCare Team (Latest Contact Info)Pyfejnkgiyx00/30/2025Telephone [facility] Medical Providers at [address] [address] Nicola James DO [address] [place], [place] [phone] Other (Respiratory concerns.) Social History Tobacco UseTypesPacks/DayYears UsedDateSmoking Tobacco: NeverSmokeless [...] and heating?Not hard at all11/13/2023HQ-2AnswerDate RecordedPHQ-9 Total Gspkf066PRAPARE - TransportationAnswerDate RecordedIn the past 12 months, [...] steady place to sleep or slept in [facility] (including now)?No06/07/2022Housing Stability Vital SignAnswerDate RecordedIn the last 12 months, was there a time when you were not able to pay the mortgage or rent on time?No12/04/2024In the past 12 months, how many times have you moved where you were living? At any time in the past 12 months, were you homeless or living in a [facility] (including now)?No12/04/2024UDIT-CAnswerDate RecordedQ1: How often do you [...] Domain Source: IP Abuse ScreeningAnswerDate Recorded Physical wdyrvEundub11/31/2025Verbal dyxayBciysb36/31/2025Emotional abuseDenies 12/25/2024Financial toyrgBzzvdf34/31/2025Sexual qugovSmzmni78/31/2025 CommentsNoSex and Gender InformationValueDate RecordedSex Assigned at BirthNot on fileLegal AcmPosigu65/10/2013 6:14 PM ESTGender IdentityNot on fileSexual OrientationNot on filedocumented as of this encounter Functional Status documented as of this encounter Plan of Treatment DateTypeDepartmentCare Team (Latest Contact Info)Wlqdkexstrw14/13/2025 2:45 PM ESTOffice Visit [facility] Part of [address] [address] Steven Porter, AGRICULTURE MECHANIC - PANTS MAKER [address] [phone] hosp f/u Covid/ COPD01/11/2025 10:00 AM ESTPharmacy Visit [facility] [address] [place] [phone] CHF - Stopped Spironolactone Changed to Toprol 50 mg BID01/29/2025 12:20 PM EST Office Visit [facility] [place] [address] Nicola James DO [address] [phone] 4-6 wkdocumented as of this encounter Visit Diagnoses Not on filedocumented in this encounter Additional Health Concerns InfectionOnset DateLast IndicatedResolved TimeCOVID-19 (Rule Out)12/25/2024 3:01 AM EDTAssessmentNoted TimeA fall risk assessment has been completed for the rspuiis9111/13/2023 6:59 AM EDTdocumented as of this encounter Care Teams Team MemberRelationshipSpecialtyStart DateEnd Date Nicola James DO [address] [place] [address] PCP - GeneralFamily Medicine11/12/23documented as of this encounter
--- NOTE | 2024-12-25 04:43 | ED.SOB1 ---
HPI - SOB/Dyspnea General Chief Complaint: Shortness of Breath/Dyspnea Stated Complaint: SHORTNESS OF BREATH, WEAKNESS Time Seen by Provider: 12/25/24 04:36 Source: patient Mode of arrival: Wheelchair Limitations: no limitations History of Present Illness HPI Narrative: last 1-2 weeks diagnosed with COVID and is wearing 1L 02. Tonight feels weak and short of breath. Also has anxiety. History of CHF. Has mild lower ext edema. Was walking to the bathroom tonight and had to sit down because she was weak and short of breath while wearing 02. No chest pain Related Data Home Medications ?Medication ?Instructions ?Recorded ?Confirmed albuterol sulfate 90 mcg/actuation 2 puff inhalation Q4H PRN 12/25/24 12/25/24 aerosol inhaler shortness of breath or wheezing aspirin 81 mg chewable tablet 81 mg PO DAILY 12/25/24 12/25/24 (Jose Enrique Chewable Low Dose Aspirin) cholecalciferol (vitamin D3) 125 125 mcg PO DAILY 12/25/24 12/25/24 mcg (5,000 unit) tablet (Vitamin D3) elderberry gummies PO DAILY 12/25/24 escitalopram oxalate 10 mg tablet 10 mg PO 12/25/24 furosemide 40 mg tablet 20 mg PO DAILY 12/25/24 12/25/24 gabapentin 600 mg tablet 900 mg PO Q8H 12/25/24 12/25/24 hydrocortisone 10 mg tablet 10 mg PO Q12H 12/25/24 12/25/24 hydroxychloroquine 200 mg tablet 200 mg PO BID 12/25/24 12/25/24 ipratropium 0.5 mg-albuterol 3 mg 3 ml inhalation Q4H PRN shortness 12/25/24 12/25/24 (2.5 mg base)/3 mL nebulization of breath or wheezing soln levothyroxine 175 mcg tablet 175 mcg PO DAILY 12/25/24 12/25/24 loratadine 10 mg tablet 10 mg PO Q24H PRN allergy symptoms 12/25/24 12/25/24 metoprolol succinate 50 mg 50 mg PO DAILY 12/25/24 12/25/24 tablet,extended release 24 hr omega-3s 350 mg-dha 100 mg-epa 225 1 cap PO DAILY 12/25/24 12/25/24 mg-other [id number] oil capsule ([place] Blue [place]-3) omeprazole 40 mg capsule,delayed 40 mg PO DAILY 12/25/24 12/25/24 release pravastatin 20 mg tablet 20 mg PO DAILY 12/25/24 12/25/24 primidone 50 mg tablet 50 mg PO DAILY 12/25/24 12/25/24 sacubitril 49 mg-valsartan 51 mg 1 tab PO BID 12/25/24 12/25/24 tablet (Entresto) vitamin B complex 1 tab PO DAILY 12/25/24 12/25/24 Allergies Allergy/AdvReac Type Severity Reaction Status Date / Time tree nut Allergy Severe Swelling Verified 12/25/24 04:14 of Lip/Tongue/Throat acetaminophen (From Percocet) Allergy Mild Hives Verified 12/25/24 04:14 cephalexin (From Keflex) Allergy Mild Hives Verified 12/25/24 04:14 oxycodone (From Percocet) Allergy Mild Hives Verified 12/25/24 04:14 Review of Systems ROS Status of ROS 10 or more systems reviewed and unremarkable except as noted in history and below [facility] Medical History (Updated 12/25/24 @ 06:44 by Chintan Vargas MD) Lichen disease ?L28.0 - Lichen simplex chronicus (ICD-10) Adrenocortical insufficiency ?E27.40 - Unspecified adrenocortical insufficiency (ICD-10) Social History Little interest or pleasure in doing things: not at all Feeling down, depressed, or hopeless: not at all Exam Constitutional Vital Signs, click to edit/add: Last Vital Signs Temp 97.9 F 12/25/24 04:01 Pulse 68 12/25/24 04:01 Resp 17 12/25/24 04:01 BP 157/81 H 12/25/24 04:01 Pulse Ox 97 12/25/24 05:07 O2 Del Method Nasal Cannula 12/25/24 05:07 O2 Flow Rate 3 12/25/24 05:07 Common normals: no apparent distress, average body habitus, oriented x3, no limitations, healthy appearing and alert [facility] Common normals: normocephalic and head/scalp atraumatic Eye Common normals: PERRL, EOMs intact bilaterally and conjunctivae normal Respiratory Common normals: normal respiratory effort, no retractions, no use of accessory muscles and clear to auscultation bilaterally Cardio Common normals: regular rate, regular rhythm, S1 normal heart sound and S2 normal heart sound GI Common normals: Normal to inspection, nondistended, normoactive bowel sounds present, soft to palpation and non-tender Extremity Common normals: normal to inspection and full ROM Neuro Common normals: oriented x3, CN's II-XII intact bilaterally, moves all extremities and no focal motor deficits Psych Appearance: grossly normal Course Vital Signs Vital signs: Vital Signs Temperature 97.9 F 12/25/24 04:01 Pulse Rate 68 12/25/24 04:01 Respiratory Rate 17 12/25/24 04:01 Blood Pressure 157/81 H 12/25/24 04:01 Pulse Oximetry 92 L 12/25/24 04:01 Oxygen Delivery Method Nasal Cannula 12/25/24 04:01 Oxygen Delivery Flow Rate 3 12/25/24 04:01 Temperature 97.9 F 12/25/24 04:01 Pulse Rate 68 12/25/24 04:01 Respiratory Rate 17 12/25/24 04:01 Blood Pressure 157/81 H 12/25/24 04:01 Pulse Oximetry 97 12/25/24 05:07 Oxygen Delivery Method Nasal Cannula 12/25/24 05:07 Oxygen Delivery Flow Rate 3 12/25/24 05:07 MDM - SOB/Dyspnea MDM Narrative Medical decision making narrative: patient presents complaining of weakness and shortness of breath. Recent diagnosis of COVID19 and is on home 02 1L NC. Has history of CHF. EKG with LBBB. Cxray per my review with streaky infiltrates-mild ? cephalization. First troponin neg. Repeat Tropnin and BNP pending. UA pending. CTA chest ordered. Care transferred at change of shift. Lab Data Labs: Lab Results 12/25/24 12/25/24 Range/Units 04:25 06:22 WBC 5.9 (4.0-11.0) 10^3/uL RBC 4.82 (4.20-5.40) 10^6/uL Hgb 14.3 (12.0-16.0) g/dL Hct 42.2 (36.0-48.0) % MCV 87.6 (81.0-99.0) fL MCH 29.7 (26.7-34.0) pg MCHC 33.9 (29.9-35.2) g/dL RDW 13.2 (11.0-15.0) % Plt Count 182 (150-450) 10^3/uL MPV 9.7 (9.5-13.5) fL Neut % (Auto) 71.9 (43.0-75.0) % Lymph % (Auto) 13.0 L (20.5-60.0) % [place] % (Auto) 8.9 (1.7-12.0) % Eos % (Auto) 4.9 (0.9-7.0) % Baso % (Auto) 0.8 (0.2-2.0) % Neut # (Auto) 4.3 (1.4-6.5) 10^3/uL Lymph # (Auto) 0.8 L (1.2-3.8) 10^3/uL Crowley # (Auto) 0.5 (0.3-0.8) 10^3/uL Eos # (Auto) 0.3 (0.0-0.7) 10^3/uL Baso # (Auto) 0.1 (0.0-0.1) 10^3/uL Abs Immat Gran (auto) 0.03 (0.00-0.03) 10^3/uL Imm/Tot Granulo (auto) 0.5 (0.0-0.5) % D-Dimer 0.48 (<=0.59) mg/L FEU Sodium 131 L (136-145) mmol/L Potassium 3.3 L (3.5-5.1) mmol/L Chloride 90 L (98-107) mmol/L Carbon Dioxide 35.1 H (21.0-32.0) mmol/L Anion Gap 9.2 BUN 11.0 (7.0-18.0) mg/dL Creatinine 0.56 (0.55-1.02) mg/dL Est GFR ( Amer) >60 (>=60 mL/min/1.73m^2) Est GFR (Non-Af Amer) >60 (>=60 mL/min/1.73m^2) BUN/Creatinine Ratio 19.6 Glucose 156 H (74-106) mg/dL Calcium 9.6 (8.5-10.1) mg/dL Troponin I High Sens 8.0 (4.0-51.3) pg/mL Urine Color Yellow (YELLOW) Urine Clarity Clear (CLEAR) Urine pH 6.0 (5.0-9.0) Ur Specific [place] >=1.030 A (1.005-1.025) Urine Protein 100 A (NEG/TRACE) mg/dL Urine Glucose (UA) Negative (NEGATIVE) mg/dL Urine Ketones Negative (NEGATIVE) mg/dL Urine Occult Blood Moderate A (NEGATIVE) Urine Nitrite Negative (NEGATIVE) Urine Bilirubin Negative (NEGATIVE) Urine Urobilinogen 1.0 (0.2-1.0) EU/dL Ur Leukocyte Esterase Negative (NEGATIVE) Urine RBC 2-5 A (0-2) #/HPF Urine WBC 0-2 A (NONE SEEN) #/HPF Ur Squamous Epith Cells Few A (NONE/RARE) #/LPF Urine Crystals None seen (None Seen) #/HPF Urine Bacteria Trace A (NONE SEEN) #/HPF Urine Casts Seen A (NONE SEEN) #/LPF Hyaline Casts Few Urine Mucus Trace A (NONE SEEN) Ur Culture Indicated? No Discharge Plan Discharge Patient Disposition: Still a Patient
--- NOTE | 2024-12-25 04:44 | XR_ITS ---
[address] [address] Patient Name: MARIA GUADALUPE RONDON MRN: [id number] date: 1955 Sex: F Assigned Patient Location: ER Current Patient Location: ED.MAIN Accession/Order Number: [id number] Exam Date: 12/25/2024 04:55 Report Date: 12/25/2024 08:50 At the request of: OLGA SEGOVIA MD Procedure: XR chest 2V PA AND LATERAL CHEST: CLINICAL HISTORY: Shortness of breath and weakness COMPARISON: None There is no focal parenchymal consolidation, effusion or pneumothorax. The heart is top normal in size. The hilar and mediastinal silhouettes are within normal limits. There is no vascular congestion. The visualized bony thorax is intact. Mild degenerative changes are seen at the spine. XR/XR chest 2V IMPRESSION: NO ACUTE CARDIOPULMONARY ABNORMALITY. Impression dictated by: Demetria Vaz M.D. 12/25/2024 8:50 AM Dictation Location: [place] [address] Electronically authenticated by: [id number] Y Date: 12/25/2024 08:50
[2024-12-25 04:52] LABS: Hematocrit 42.2 % (36.0-48.0); Hemoglobin 14.3 g/dL (12.0-16.0); Immature Granulocytes Abs Auto 0.03 10^3/uL (0.00-0.03); Immature Granulocytes Pct Auto 0.5 % (0.0-0.5); Lymphocytes Absolute Auto 0.8 10^3/uL (1.2-3.8); Mean Corpuscular HGB Conc 33.9 g/dL (29.9-35.2); Mean Corpuscular Hemoglobin 29.7 pg (26.7-34.0); Mean Corpuscular Volume 87.6 fL (81.0-99.0); Platelet Count 182 10^3/uL (150-450); Red Blood Count 4.82 10^6/uL (4.20-5.40); White Blood Count 5.9 10^3/uL (4.0-11.0)
[2024-12-25 05:08] LABS: Anion Gap 9.2; Blood Urea Nitrogen 11.0 mg/dL (7.0-18.0); Calcium 9.6 mg/dL (8.5-10.1); Carbon Dioxide 35.1 mmol/L (21.0-32.0); Chloride 90 mmol/L (98-107); Estimated GFR (African America >60 (>=60 mL/min/1.73m^2); Estimated GFR (Non-African Ame >60 (>=60 mL/min/1.73m^2); Glucose 156 mg/dL (74-106); Potassium 3.3 mmol/L (3.5-5.1); Sodium 131 mmol/L (136-145)
[2024-12-25 06:27] LABS: Glucose Urine UA NEGATIVE (NEGATIVE)
[2024-12-25 06:36] LABS: Cast Seen? SEEN #/LPF (NONE SEEN); Crystals Seen? None Seen #/HPF (None Seen); Urine Culture Indicated NO
[2024-12-25 07:55] LABS: NT Pro B Type Natriuretic Pept 1742.0 pg/mL (<=900.0)
[2024-12-25] MEDS: FUROSEMIDE 40 MG/4 ML VIAL IVP ×2 (08:47→17:49)
--- NOTE | 2024-12-25 08:59 | CA_ITS ---
Patient Name: MARIA GUADALUPE RONDON MR#: [id number] : 1955 Exam Date: 12/25/2024 Ordering Doctor: KRISTAN WYNN ECHOCARDIOGRAM REPORT PROCEDURE: CA ECHO DOPPLER COMPLETE INDICATIONS: CHF, elevated BNP, recent COVID COMPARISON: None. DESCRIPTION: COMPLETE ECHOCARDIOGRAM Real-time transthoracic echocardiography with 2D, M-mode, spectral and color flow Doppler performed. QUALITY: Technically difficult study due to patient's condition. LEFT VENTRICLE: Normal chamber size. Thickened posterior wall. LV EF: Global left ventricular systolic function is difficult to assess but appears preserved; visually estimated ejection fraction is 55%. Unable to assess regional wall motion abnormalities. DIASTOLIC: Unable to assess diastolic function. ATRIAL SEPTUM: Inadequately seen. LEFT ATRIUM: Normal chamber size. RIGHT ATRIUM: Normal chamber size. RIGHT VENTRICLE: Poorly seen. Appears normal in size and systolic function. TRICUSPID VALVE: Normal mobility and thickness. No stenosis with mild regurgitation. Doppler studies reveal mildly (35-45) elevated right-sided pressures. RVSP 41 mmHg MITRAL VALVE: Normal mobility and thickness. No evidence of mitral valve stenosis. Moderate nodular mitral annular calcification. Mild mitral regurgitation. AORTIC VALVE: Normal trileaflet appearance. No visible sclerosis. Normal leaflet mobility. No evidence of aortic valve stenosis. No aortic regurgitation. AORTIC ROOT: Normal diameter and appearance. Ascending aorta is normal in size. PULMONIC VALVE: Normal thickness and mobility. No stenosis. Trivial regurgitation. PERICARDIUM: Anterior free space; trivial effusion versus fat pad. IVC: Not well visualized. CONCLUSION: 1. Global left ventricular systolic function is normal; visually estimated ejection fraction is 55% 2. The right ventricle is poorly seen; it appears normal in size and systolic function 3. Increased left ventricular wall thickness 4. Mild tricuspid regurgitation 5. Mildly elevated right sided pressures; RVSP 41 mmHg 6. Mild mitral regurgitation 7. Anterior free space; trivial effusion versus fat pad Adult Echocardiography Procedure Report Left Ventricle LVEDD (3.7 - 5.6 cm): 4.93 cm LVESD (2.2 - 4.0 cm): 3.16 cm LVIVS thickness (0.6 - 1.2 cm): 1.00 cm LVPW thickness (0.5 - 1.0 cm): 1.16 cm LVOT Max Gradient: 1.99 mm[Hg] LVOT Area (cm2): 0.70 m/s Peak Velocity (LVOT): 0.70 m/s LVOT Diameter 2.17 cm Left Atrium Left Atrium Systolic Dimension: 3.93 cm Mitral Valve MV E to A Ratio: 0.65 Mitral Valve A-Wave Peak Velocity: 0.74 m/s Mitral Valve E-Wave Peak Velocity: 0.49 m/s Right Ventricle Aorta AO Root Diam: 2.82 cm Ascending Ao Diam: 2.56 cm Aortic Valve AoV Area (Peak Tadeo): 2.52 cm2, 2.52 cm2 Peak Velocity(Antegrade Flow): 1.03 m/s Peak Gradient(Antegrade Flow): 4.26 mm[Hg] Tricuspid Valve Peak Velocity (Regurgitant Flow): 3.07 m/s Pulmonic Valve Mean Gradient: 2.05 mm[Hg] Mean Velocity: 0.62 m/s Peak Gradient: 4.88 mm[Hg] Right Atrium Right Atrium Systolic Pressure: 44.97 ml, 44.97 ml Dictated by: Swapnil Dumont M.D. on 12/25/2024 at 15:50 Approved by: Swapnil Dumont M.D. on 12/25/2024 at 15:58
[2024-12-25] MEDS: ACETAMINOPHEN 325 MG TABLET 650 MG PO ×2 (09:23→22:31)
[2024-12-25 09:50] LABS: Magnesium 1.9 mg/dL (1.8-2.4); Thyroid Stimulating Hormone 1.083 uIU/mL (0.358-3.740)
--- NOTE | 2024-12-25 09:55 | ECG_ITS ---
[facility] Test Date: 2024-12-25 Pat Name: MARIA GUADALUPE RONDON Department: Room: 2141 Gender: Female Medical Support Assistant: : 1955 Requested By: [id number] Order Number: [id number] Reading MD: SELMA CARDOSO M.D. Measurements Intervals [place] Rate: 69 P: 51 TN: 154 QRS: -42 QRSD: 164 T: 32 QT: 480 QTc: 499 Interpretive Statements 1100 Sinus rhythm 2550 Left bundle branch block 7200 Abnormal left axis deviation 9150 abnormal ECG Compared to ECG 12/25/2024 04:36:42 No significant changes Electronically Signed On 12-25-2024 18:04:52 EDT by SELMA CARDOSO M.D.
[2024-12-25] MEDS: GUAIFENESIN 200 MG/DEXTROMETHORPHAN 20 MG 10 ML UNIT DOSE CUP PO ×2 (11:26→22:35)
[2024-12-25] MEDS: POTASSIUM CHLORIDE 10 MEQ ER TABLET 40 MEQ PO (11:26)
[2024-12-25] MEDS: ENOXAPARIN SODIUM 40 MG/0.4 ML SYRINGE SUBQ (11:26)
--- NOTE | 2024-12-25 11:55 | CT_ITS ---
The [address] [address] Patient Name: MARIA GUADALUPE RONDON MRN: [id number] date: 1955 Sex: F Assigned Patient Location: MS Current Patient Location: Accession/Order Number: [id number] Exam Date: 12/25/2024 14:08 Report Date: 12/25/2024 15:28 At the request of: KRISTAN WYNN MD Procedure: CT chest w con CT CHEST WITH INTRAVENOUS CONTRAST: CLINICAL HISTORY: Dyspnea COMPARISON: Chest 12/25/2024 TECHNIQUE: Spiral images were obtained through the chest following intravenous administration of IV contrast. This CT exam was performed using one or more following dose reduction techniques: Automated exposure control, adjustment of the mA and/or kV according to patient size, or use of iterative reconstruction technique. FINDINGS: Mediastinum:Thoracic aorta appears normal in caliber. Pulmonary trunk appears nondilated. No pericardial effusion. No lymphadenopathy. The esophagus is grossly unremarkable. Lungs:Diffuse bronchial wall thickening. Scattered areas of lung scarring and atelectasis as well as subtle areas of groundglass. No consolidation pneumothorax or pleural effusion. Abd:No acute findings. Soft tissues/Bones: No acute findings. Osseous structures demonstrate degenerative change. CT/CT chest w con IMPRESSION: Diffuse bronchial wall thickening with scattered areas of lung scarring and atelectasis as well as subtle areas of groundglass. Findings may be a sequela of an infectious or possibly inflammatory process. Continued CT follow-up is recommended to ensure resolution. Impression dictated by: Yobany Ceja Jr., D.O. 12/25/2024 3:28 PM Dictation Location: [place] [address] Electronically authenticated by: [id number] Y Date: 12/25/2024 15:28
--- NOTE | 2024-12-25 12:00 | PM.HP ---
HPI H&P: HPI History of Present Illness Chief complaint: SHORTNESS OF BREATH, WEAKNESS, DECOMPENSATED CHF Narrative: Mrs Catalan is a 69-year-old female who came in with progressive weakness, shortness of breath. No fever or chills. No chest pain. No abdominal pain. No hematemesis or melena. Patient was admitted recently Triptafen and was found to have COVID-19 infection. No focal weakness or numbness. Opioid HPI Opioid Management Most Recent Pain and Opioid Data: Last Pain Scale 8 Today, 09:23 Last Pain Assessment Today, 11:29 Last MAR Pain Assessment Today, 09:23 Last ORT Total Score 0 Today, 10:40 Last ORT Risk Category Low Risk Today, 10:40 Review of Systems ROS Narrative Generalized weakness and fatigue. Patient uses a walker at home. No focal deficit Status of ROS 10 or more systems reviewed and unremarkable except as noted in history and below [facility] Medical History (Updated 12/25/24 @ 09:01 by Iman Mcfarland MD) Lichen disease ?L28.0 - Lichen simplex chronicus (ICD-10) Adrenocortical insufficiency ?E27.40 - Unspecified adrenocortical insufficiency (ICD-10) Surgical History (Updated 12/25/24 @ 11:04 by Winifred Eckert RN) History of right knee joint replacement ?Z96.651 - Presence of right artificial knee joint (ICD-10) Family History (Updated 12/25/24 @ 11:05 by Winifred Eckert RN) Grandmother Family history of stroke Mother Family history of stroke Family history of hypertension Family history of diabetes mellitus Family history of CHF (congestive heart failure) Father Family history of myocardial infarction Family history of hypertension Family history of CHF (congestive heart failure) Brother Family history of myocardial infarction Family history of hypertension Son Family history of cancer Social History (Updated 12/25/24 @ 11:06 by Winifred Eckert RN) Within the past year, how often did you have a drink containing alcohol: never Score interpretation: A score less than 3 is consistent with normal alcohol consumption. Smoking status: Never smoker Non-prescribed substance use: denies use Highest level of school completed/degree received: high school graduate Little interest or pleasure in doing things: not at all Feeling down, depressed, or hopeless: not at all Meds Home Medications and Allergies Home Medications ?Medication ?Instructions ?Recorded ?Confirmed ?Type albuterol sulfate 90 mcg/actuation 2 puff inhalation Q4H PRN 12/25/24 12/25/24 History aerosol inhaler shortness of breath or wheezing aspirin 81 mg chewable tablet 81 mg PO DAILY 12/25/24 12/25/24 History (Jose Enrique Chewable Low Dose Aspirin) cholecalciferol (vitamin D3) 125 125 mcg PO DAILY 12/25/24 12/25/24 History mcg (5,000 unit) tablet (Vitamin D3) elderberry gummies 1 dose PO DAILY 12/25/24 12/25/24 History escitalopram oxalate 10 mg tablet 10 mg PO .QD 12/25/24 12/25/24 History furosemide 40 mg tablet 20 mg PO DAILY 12/25/24 12/25/24 History gabapentin 600 mg tablet 900 mg PO Q8H 12/25/24 12/25/24 History hydrocortisone 10 mg tablet 10 mg PO Q12H 12/25/24 12/25/24 History hydroxychloroquine 200 mg tablet 200 mg PO BID 12/25/24 12/25/24 History ipratropium 0.5 mg-albuterol 3 mg 3 ml inhalation Q4H PRN shortness 12/25/24 12/25/24 History (2.5 mg base)/3 mL nebulization of breath or wheezing soln levothyroxine 175 mcg tablet 175 mcg PO DAILY 12/25/24 12/25/24 History loratadine 10 mg tablet 10 mg PO Q24H PRN allergy symptoms 12/25/24 12/25/24 History metoprolol succinate 50 mg 50 mg PO DAILY 12/25/24 12/25/24 History tablet,extended release 24 hr omega-3s 350 mg-dha 100 mg-epa 225 1 cap PO DAILY 12/25/24 12/25/24 History mg-other [id number] oil capsule ([place] Blue [place]-3) omeprazole 40 mg capsule,delayed 40 mg PO DAILY 12/25/24 12/25/24 History release pravastatin 20 mg tablet 20 mg PO DAILY 12/25/24 12/25/24 History primidone 50 mg tablet 50 mg PO DAILY 12/25/24 12/25/24 History sacubitril 49 mg-valsartan 51 mg 1 tab PO BID 12/25/24 12/25/24 History tablet (Entresto) vitamin B complex 1 tab PO DAILY 12/25/24 12/25/24 History Allergies Allergy/AdvReac Type Severity Reaction Status Date / Time tree nut Allergy Severe Swelling Verified 12/25/24 04:14 of Lip/Tongue/Throat acetaminophen (From Percocet) Allergy Mild Hives Verified 12/25/24 04:14 cephalexin (From Keflex) Allergy Mild Hives Verified 12/25/24 04:14 oxycodone (From Percocet) Allergy Mild Hives Verified 12/25/24 04:14 Exam Narrative Exam Narrative: Patient is sitting in bed on oxygen. Mildly tachypneic. Morbidly obese. Central obesity with lower extremities muscle wasting and atrophy. Trace pitting edema in the legs. Neck supple, no JVD. Chest exam revealed fine crackles bilaterally. Heart is regular. Abdomen soft, increased abdominal girth therefore clinically I could not exclude the possibility of intra-abdominal mass organomegaly. Constitutional Vital Signs, click to edit/add: Last Vital Signs Temp 97.8 F 12/25/24 10:42 Pulse 64 12/25/24 10:42 Resp 20 12/25/24 08:59 BP 175/77 H 12/25/24 10:42 Pulse Ox 93 L 12/25/24 10:42 O2 Del Method Nasal Cannula 12/25/24 10:42 O2 Flow Rate 2 12/25/24 10:42 Results Labs Labs: Short CBC 12/25/24 Range/Units 04:25 WBC 5.9 (4.0-11.0) 10^3/uL Hgb 14.3 (12.0-16.0) g/dL Hct 42.2 (36.0-48.0) % Plt Count 182 (150-450) 10^3/uL BMP 12/25/24 04:25 Sodium 131 L Potassium 3.3 L Chloride 90 L Carbon Dioxide 35.1 H BUN 11.0 Creatinine 0.56 Glucose 156 H Calcium 9.6 Urine 12/25/24 Range/Units 06:22 Urine Color Yellow (YELLOW) Urine Clarity Clear (CLEAR) Urine pH 6.0 (5.0-9.0) Ur Specific [place] >=1.030 A (1.005-1.025) Urine Protein 100 A (NEG/TRACE) mg/dL Urine Glucose (UA) Negative (NEGATIVE) mg/dL Assessment and Plan Assessment and Plan (1) Shortness of breath: Plan Dyspnea, likely multifactorial. Systolic and diastolic heart failure, restrictive lung disease, recent COVID-19 infection D-dimer is negative therefore the possibility of pulmonary embolism is low. Recent COVID-19 infection which might have left some scarring contributing to her dyspnea and hypoxemia Her BNP is elevated. Patient is known to have CHF. Unknown EF. Patient is on Entresto suggested that the patient may have systolic dysfunction and a cardiomyopathy. Patient is obese. Likely has restrictive lung disease. Patient never smoked before. Doubt that she has an obstructive disease. I had accepted to admit patient to the medical and telemetry unit. Troponin is negative. Patient had cardiac cath last year which came back unremarkable according to patient and her daughter. Requested CAT scan of the chest with contrast to take a look at the lung parenchyma and rule out underlying scarring or infiltration. (Patient is afebrile with normal white count. ) Requested influenza and RSV testing. TSH is normal. Gentle diuresis. Echocardiogram. Input and output measurement. Monitor electrolytes. Control blood pressure. Hypertensive urgency Resume home beta-turner and Entresto. As needed hydralazine. Left bundle branch block Likely chronic. We will obtain previous EKG at different facility. Progressive generalized weakness and fatigue. Patient has central obesity with lower extremities muscle wasting. No focal deficit. PT OT eval and treatment. Hypokalemia Potassium supplementation Chronic, subacute medical conditions not listed above, abnormal labs and imaging. These would need to be addressed. Could be addressed later on or in the outpatient setting by PCP collaboration with other needed outpatient providers when time and condition are appropriate. I have discussed her case with her daughter at the bedside. I provided her information about her disease, prognosis, expectation and trajectory. I answered all of her questions Patient status is dynamic and evolutionary therefore the aforementioned assessment and plan may or may not be complete or conclusive. The patient will likely require to have additional workup and investigation and therapeutic invention that will be determined based on the clinical progression and follow-up test result.
[2024-12-25] MEDS: ESCITALOPRAM 10 MG TABLET PO (13:05)
[2024-12-25] MEDS: METOPROLOL SUCCINATE 50 MG TAB.ER.24H 25 MG PO (13:05)
[2024-12-25] MEDS: ALPRAZOLAM 1 MG TABLET PO (13:05)
[2024-12-25] MEDS: GABAPENTIN 300 MG CAPSULE 600 MG PO ×2 (13:05→21:03)
[2024-12-25] MEDS: HYDRALAZINE HCL 20 MG/ML VIAL 10 MG IVP (13:06)
--- NOTE | 2024-12-25 14:09 | SWNOTE1 ---
CHRISTA met with pt to discuss dc needs. Pt lives at home with her . She was helping care for him, but now they both help each other. She does wear home oxygen at 1 liter continuous from [employer] in [place]. Pt does have [facility] care coming in at this time. Pt voiced she does not feel like she is improving. When she was at [facility] in [place], they attempted to get her in to swing bed for rehab at [facility], but she did not qualify. Pt voiced her kids want her to go to rehab. Pt is in agreement. SW did let her know that it is recommended by therapy as well. SW did let her know that with her insurance, she does have limited options. SW let her know the 2 facilities that CHRISTA is aware that has contracts with [facility] is [facility] and [facility]. Pt does live in [place] and voiced [facility] would be closer. CHRISTA did provide her with list from Medicare.gov with star ratings. CHRISTA can call [facility] in [place] and see if they have contract. Pt in agreement. If not [place], then she would like [facility]. CHRISTA called and left a message for admissions at [facility]. CHRISTA also reached out to Alfonso at [facility]. They sent email back that they can review and let SW know. Referral sent to [facility]. Referral included face sheet, ED note, H&P, provider notes, case management report, nursing notes, diagnostic imaging, med list, and PT/OT notes.
--- NOTE | 2024-12-25 14:28 | CM.NOTE ---
I requested the most recent admission information along with health care POA paperwork to be faxed to us via fax to [facility] fax # [phone] on 12/25/2024
--- NOTE | 2024-12-25 14:30 | SWNOTE1 ---
Marianela Jordan is asking when pt was positive for Covid. CHRISTA advised that we do not have her in isolation. Marianela Jordan still wanting date. Pt was at [facility] in [place]. SW spoke to case management and she will call medical records to see if they can send covid test. Nurse also requested HCPOA/Living Will that is on file at [facility]. See case management note.
--- NOTE | 2024-12-25 15:01 | SWNOTE1 ---
Medicare Outpatient Observation Notice reviewed and discussed with patient. Pt. verbalized understanding and signed the form. Original given to patient and copy placed in patient?s chart.
--- NOTE | 2024-12-25 15:01 | SWNOTE1 ---
Dedra from [facility] called and they do not accept her insurance. CHRISTA did let pt know that [facility] does not accept her insurance and [facility] is reviewing her referral. CHRISTA did ask her when she was positive for covid, pt stated 2 weeks ago. SW to let [facility] know. CHRISTA emailed Zully and Antionette at [facility] and told them it was 2 weeks ago for Covid.
--- NOTE | 2024-12-25 15:19 | SWNOTE1 ---
CHRISTA called [facility] and confirmed pt is prescribed 1 liter of home oxygen continuous.
--- NOTE | 2024-12-25 15:30 | SWNOTE1 ---
Antionette at [facility] emailed SW that they have limited rooms due to isolation issues with current residents and wanted to touch base on Saturday. CHRISTA let Antionette know that it is possible pt will be ready for discharge over the weekend and wants them to find out if they can accept over weekend. Antionette at [facility] replied back: I have to get with our infection control nurse to see what our current policy is for patients who were covid positive, as we do not have any current private rooms available right now and are limited on bed availability. We don't believe we would receive the auth back over the weekend. I will let you know as soon as our DON gets back with me.? CHRISTA requested to let SW know as soon as she does hear back. CHRISTA did ask if they could at least start the precert, waiting to hear back.
--- NOTE | 2024-12-25 15:48 | SWNOTE1 ---
CHRISTA heard back from [facility] from [facility] and this is what the email stated: If we can clinically accomodate I will do my best to submit, I'm still waiting to hear back from our DON. If I can't get it submittied since it's already almost 4:00, we can do it first thing Saturday. CHRISTA updated the nurse and the patient and will re-evaluate Saturday.
--- NOTE | 2024-12-25 15:50 | SWNOTE1 ---
SW did call pt's daughter, Beatriz, and left message.
[2024-12-25] MEDS: DOXYCYCLINE HYCLATE 100 MG in 0.9 % SODIUM CHLORIDE 100 ML IV (17:49)
[2024-12-25] MEDS: HYDROCORTISONE 20 MG TABLET 10 MG PO (21:00)
[2024-12-25] MEDS: ATORVASTATIN CALCIUM 10 MG TABLET PO (21:00)
[2024-12-25] MEDS: SACUBITRIL/VALSARTAN 24 MG-26 MG TABLET 2 TAB PO (21:01)
[2024-12-26] VITALS (21 sets, daily range): BP systolic 128–148; BP diastolic 60–71; PULSE 57–87; TEMP 36.6–37.1; O2SAT 90–94
[2024-12-26] MEDS: FUROSEMIDE 40 MG/4 ML VIAL IVP (06:20)
[2024-12-26] MEDS: LEVOTHYROXINE SODIUM 100 MCG TABLET PO (06:20)
[2024-12-26] MEDS: LEVOTHYROXINE SODIUM 75 MCG TABLET PO (06:20)
[2024-12-26] MEDS: PANTOPRAZOLE SODIUM 40 MG TABLET.DR PO (06:20)
[2024-12-26] MEDS: GABAPENTIN 300 MG CAPSULE 600 MG PO ×3 (06:23→21:48)
[2024-12-26] MEDS: GUAIFENESIN 200 MG/DEXTROMETHORPHAN 20 MG 10 ML UNIT DOSE CUP PO ×2 (06:33→21:48)
[2024-12-26 06:54] LABS: Hematocrit 41.9 % (36.0-48.0); Hemoglobin 13.6 g/dL (12.0-16.0); Immature Granulocytes Abs Auto 0.02 10^3/uL (0.00-0.03); Immature Granulocytes Pct Auto 0.3 % (0.0-0.5); Lymphocytes Absolute Auto 1.2 10^3/uL (1.2-3.8); Mean Corpuscular HGB Conc 32.5 g/dL (29.9-35.2); Mean Corpuscular Hemoglobin 28.9 pg (26.7-34.0); Mean Corpuscular Volume 89.1 fL (81.0-99.0); Platelet Count 218 10^3/uL (150-450); Red Blood Count 4.70 10^6/uL (4.20-5.40); White Blood Count 6.2 10^3/uL (4.0-11.0)
[2024-12-26 07:04] LABS: Glucose Urine UA NEGATIVE (NEGATIVE)
[2024-12-26 07:27] LABS: Cast Seen? SEEN #/LPF (NONE SEEN); Crystals Seen? None Seen #/HPF (None Seen); Urine Culture Indicated NO
[2024-12-26 07:31] LABS: Alanine Aminotransferase 19 U/L (14-59); Albumin Globulin Ratio 0.8; Albumin Level 2.6 g/dL (3.4-5.0); Alkaline Phosphatase 40 U/L (46-116); Anion Gap 7.6; Aspartate Amino Transferase 20 U/L (15-37); Blood Urea Nitrogen 13.0 mg/dL (7.0-18.0); Calcium 9.7 mg/dL (8.5-10.1); Carbon Dioxide 37.3 mmol/L (21.0-32.0); Chloride 91 mmol/L (98-107); Cholesterol 170 mg/dL (<=200); Estimated GFR (African America >60 (>=60 mL/min/1.73m^2); Estimated GFR (Non-African Ame >60 (>=60 mL/min/1.73m^2); Globulin 3.3 g/dL; Glucose 93 mg/dL (74-106); HDL Cholesterol 78 mg/dL (40-60); Potassium 3.9 mmol/L (3.5-5.1); Sodium 132 mmol/L (136-145); Total Protein 5.9 g/dL (6.4-8.2); Triglycerides 70 mg/dL (<=150); VLDL CHOLESTEROL 14.0 mg/dL
[2024-12-26 07:38] LABS: NT Pro B Type Natriuretic Pept 2506.0 pg/mL (<=900.0)
[2024-12-26] MEDS: ACETAMINOPHEN 325 MG TABLET 650 MG PO ×3 (09:55→21:48)
[2024-12-26] MEDS: ASPIRIN 81 MG TAB.CHEW PO (09:56)
[2024-12-26] MEDS: PRIMIDONE 50 MG TABLET PO ×2 (09:56→21:48)
[2024-12-26] MEDS: ESCITALOPRAM 10 MG TABLET PO (09:56)
[2024-12-26] MEDS: DOXYCYCLINE MONOHYDRATE 100 MG CAPSULE PO ×2 (09:56→21:48)
[2024-12-26] MEDS: METOPROLOL SUCCINATE 50 MG TAB.ER.24H 25 MG PO (09:56)
[2024-12-26] MEDS: ENOXAPARIN SODIUM 40 MG/0.4 ML SYRINGE SUBQ (09:56)
[2024-12-26] MEDS: SACUBITRIL/VALSARTAN 24 MG-26 MG TABLET 2 TAB PO ×2 (09:56→21:47)
[2024-12-26] MEDS: HYDROCORTISONE 20 MG TABLET 10 MG PO (09:56)
--- NOTE | 2024-12-26 10:14 | REH.PTDLY ---
Physical Therapy Daily Note PT Daily Note/Assess Start: 12/26/24 10:08 Freq: Status: Active Protocol: Document 12/26/24 10:08 MAICOL (Rec: 12/26/24 10:13 MAICOL [id number]) Physical Therapy Daily Note/Assessment Time In 09:30 Time Out 09:57 Pain Level 5 Pain Level 7 Subjective Pt in chair upon arrival, head resting on tray table. States she is tired and LB hurts, rates as a 5/10 Therapeutic Exercise 8 Minutes (minutes) Therapeutic Exercise 1 Units Therapeutic Exercise Instructed in B LE seated exs unsupported at bedside Treatment 15x ea for improved LE strength. Pt performed AP, LAQ, marching, and hip add at slow pace, pt does become fatigued towards last few reps. Therapeutic Activity 15 Minutes (minutes) Therapeutic Activity 1 Units Therapeutic Activity Sit to stand transfers from chair CGA. Gait training Comments with RW 36 feet CGA with 2 L of O2. CGA with toilet transfers for safety. Pt able to don and doff brief, but needs assistance with pericare. Pt stands at sink to wash hands and brush teeth for 4 mins with UE support on counter. Gait training another 12 feet back back to bed. Pt sits bedside and performs 3x sit to stand transfers with no LOB noted SBA. Total Therapy 23 Minutes Total Physical 2 Therapy Units Daily Note Summary Pt has increased LB pain rating as a 7/10 post activity . CGA with gait for safety as pt is hesitant of herself and fearful of falling. Pt fatigued post rx. Plan is for pt to go to SNF at [facility] due to decline in function and weakness being noted. Pt will benefit from skilled therapy to improve stamina and strength for daily activities and reduce fall risk.
--- NOTE | 2024-12-26 13:50 | P.PN_ITS ---
Progress Note: Subjective Subjective Interval history: The patient indicates that she is beginning to notice some improvement. She says that her cough is less. She is having less shortness of breath. She notes that she usually does not get any leg edema at all. She is still being held back the way that she has not really had any appetite at all. She also says that she does not sleep at night but this has been a problem going on for the last couple months. She spent all of today sleeping and just woke up when I came into the room at 2:00 PM. Her daughter came into the room. The story that the daughter tells is that the patient has been in and out of lots of different hospitals. It seems that the other hospitals, in [place] and other places, presumed that she had COPD and put her on inhalers. The daughter does not think that the patient has COPD. The patient never smoked. 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 She does have a history of systolic congestive heart failure. Back in the past the daughter recalls left-ventricular ejection fractions of 20%.. and most recently 40% and so I told them that on our echocardiogram the left ventricular ejection fraction is 55%. The daughter really wants the patient to be seen by her weighmaster. They do report that she had a cardiac catheterization in [place], by weighmaster who is no longer there, and there was no coronary artery disease on that cardiac catheterization, per the daughter's recollection. They also were supposed to see a neurological surgery teacher in the middle of the month which is a neurological surgery teacher out of [place] who goes to [facility]. There have been efforts to try and get her a pulmonary function test but these were never done because she had been in and out of the hospital with bronchitis and then finally came down with COVID. The doctor also thinks that the patient's Jardiance caused the patient a lot of problems because when she started the Jardiance is the same time that she began having a lot of problems with her coughing and breathing. So at this time the focus is on getting the patient stronger. Exam Narrative Exam Narrative: General: Lying in bed. Speaks with a soft people high-pitched voice. Pulmonary: Scattered coarseness throughout. No focal areas of wheezing. Lower extremities: Absolutely no pitting edema at all. GI: Bowel sounds are normal. Cardiac: Heart sounds are somewhat distant but I do not hear any murmurs. BMI is 39. Constitutional Vital Signs, click to edit/add: Last Vital Signs Temp 98.1 F 12/26/24 13:16 Pulse 64 12/26/24 13:16 Resp 16 12/26/24 13:16 BP 128/60 12/26/24 13:16 Pulse Ox 93 L 12/26/24 13:16 O2 Del Method Nasal Cannula 12/26/24 13:16 O2 Flow Rate 2 12/26/24 13:16 Progress Note: Objective Labs Labs: Short CBC 12/26/24 Range/Units 05:43 WBC 6.2 (4.0-11.0) 10^3/uL Hgb 13.6 (12.0-16.0) g/dL Hct 41.9 (36.0-48.0) % Plt Count 218 (150-450) 10^3/uL BMP 12/26/24 05:43 Sodium 132 L Potassium 3.9 Chloride 91 L Carbon Dioxide 37.3 H BUN 13.0 Creatinine 0.74 Glucose 93 Calcium 9.7 Liver Function 12/26/24 Range/Units 05:43 Total Bilirubin 0.5 (0.2-1.0) mg/dL AST 20 (15-37) U/L ALT 19 (14-59) U/L Alkaline Phosphatase 40 L (46-116) U/L Albumin 2.6 L (3.4-5.0) g/dL Urine 12/26/24 Range/Units 06:05 Urine Color Lt. yellow (YELLOW) Urine Clarity Clear (CLEAR) Urine pH 6.0 (5.0-9.0) Ur Specific [place] 1.020 (1.005-1.025) Urine Protein 30 A (NEG/TRACE) mg/dL Urine Glucose (UA) Negative (NEGATIVE) mg/dL Progress Note: A&P Assessment and Plan (1) Shortness of breath: Plan Plan Dyspnea, likely multifactorial. Systolic and diastolic heart failure, restrictive lung disease, recent COVID-19 infection D-dimer is negative therefore the possibility of pulmonary embolism is low. Recent COVID-19 infection which might have left some scarring contributing to her dyspnea and hypoxemia Her BNP is elevated. Patient is known to have CHF. . Patient is on Entresto suggested that the patient may have systolic dysfunction and a cardiomyopathy. Echocardiogram shows left ventricular ejection fraction 55%. RVSP 41. CT scan shows diffuse endobronchial wall thickening with areas of lung scarring and atelectasis as well as subtle areas of ground glass. Findings may be sequela of infectious or possibly inflammatory process. Patient is obese. Likely has restrictive lung disease. Patient never smoked before. Doubt that she has an obstructive disease. Troponin is negative. Patient had cardiac cath last year which came back unremarkable according to patient and her daughter. Requested influenza and RSV testing. TSH is normal. Gentle diuresis. Input and output measurement. Monitor electrolytes. Control blood pressure. Hypertensive urgency Resumed home beta-turner and Entresto. As needed hydralazine. Left bundle branch block Likely chronic. Progressive generalized weakness and fatigue. Patient has central obesity with lower extremities muscle wasting. No focal deficit. PT OT eval and treatment. Hypokalemia Potassium supplementation Additional plan for the weekend: Continue doxycycline 100 mg IV twice daily for the possibility of post bronchitis and then post COVID bacterial bronchitis. Will diurese her more strongly tomorrow with Lasix 40 mg IV every morning assisted by spironolactone 25 mg a day. The patient does take Cortef 10 twice daily. She says that at home she usually took it at 9:00 in the morning and then 2 PM but she began sleeping in late and so she took her Cortef later and then would skip the second dose. I will retimed this for 7 in the morning and then 1 PM. Even though her LVEF is normal (at this time)I think she should stay on GDMT for her history of HFrEF... with Toprol 25, Entresto, and some spironolactone likely in the long run and maybe in the future they could retry Jardiance but I think she would need to be well recovered from this episode. Continue to monitor blood pressures and recheck BNPs and BMPs and she needs strengthening with physical therapy.
[2024-12-26] MEDS: SPIRONOLACTONE 25 MG TABLET 50 MG PO (15:21)
[2024-12-26] MEDS: ENSURE ORIGINAL 237 ML BOTTLE PO (21:47)
[2024-12-26] MEDS: ATORVASTATIN CALCIUM 10 MG TABLET PO (21:48)
[2024-12-27] VITALS (24 sets, daily range): BP systolic 105–158; BP diastolic 44–83; PULSE 66–95; TEMP 36.5–37.3; O2SAT 85–96
[2024-12-27] MEDS: GUAIFENESIN 200 MG/DEXTROMETHORPHAN 20 MG 10 ML UNIT DOSE CUP PO (03:46)
[2024-12-27] MEDS: ACETAMINOPHEN 325 MG TABLET 650 MG PO ×3 (03:47→16:34)
[2024-12-27] MEDS: GABAPENTIN 300 MG CAPSULE 600 MG PO ×3 (05:41→21:05)
[2024-12-27] MEDS: LEVOTHYROXINE SODIUM 100 MCG TABLET PO (05:41)
[2024-12-27] MEDS: PANTOPRAZOLE SODIUM 40 MG TABLET.DR PO (05:41)
[2024-12-27] MEDS: LEVOTHYROXINE SODIUM 75 MCG TABLET PO (05:41)
[2024-12-27 06:28] LABS: Hematocrit 40.3 % (36.0-48.0); Hemoglobin 13.4 g/dL (12.0-16.0); Immature Granulocytes Abs Auto 0.02 10^3/uL (0.00-0.03); Immature Granulocytes Pct Auto 0.3 % (0.0-0.5); Lymphocytes Absolute Auto 1.1 10^3/uL (1.2-3.8); Mean Corpuscular HGB Conc 33.3 g/dL (29.9-35.2); Mean Corpuscular Hemoglobin 29.5 pg (26.7-34.0); Mean Corpuscular Volume 88.8 fL (81.0-99.0); Platelet Count 214 10^3/uL (150-450); Red Blood Count 4.54 10^6/uL (4.20-5.40); White Blood Count 6.2 10^3/uL (4.0-11.0)
[2024-12-27 06:57] LABS: Anion Gap 7.7; Blood Urea Nitrogen 16.0 mg/dL (7.0-18.0); Calcium 9.8 mg/dL (8.5-10.1); Carbon Dioxide 36.8 mmol/L (21.0-32.0); Chloride 89 mmol/L (98-107); Estimated GFR (African America >60 (>=60 mL/min/1.73m^2); Estimated GFR (Non-African Ame >60 (>=60 mL/min/1.73m^2); Glucose 112 mg/dL (74-106); NT Pro B Type Natriuretic Pept 317.0 pg/mL (<=900.0); Potassium 3.5 mmol/L (3.5-5.1); Sodium 130 mmol/L (136-145)
[2024-12-27] MEDS: ASPIRIN 81 MG TAB.CHEW PO (09:22)
[2024-12-27] MEDS: SPIRONOLACTONE 25 MG TABLET 50 MG PO (09:22)
[2024-12-27] MEDS: SACUBITRIL/VALSARTAN 24 MG-26 MG TABLET 2 TAB PO ×2 (09:22→21:06)
[2024-12-27] MEDS: METOPROLOL SUCCINATE 50 MG TAB.ER.24H 25 MG PO (09:22)
[2024-12-27] MEDS: CHOLECALCIFEROL (VITAMIN D3) 125 MCG/5,000 UNIT TABLET PO (09:22)
[2024-12-27] MEDS: ENOXAPARIN SODIUM 40 MG/0.4 ML SYRINGE SUBQ (09:22)
[2024-12-27] MEDS: FOLIC ACID/VIT B6/VIT B12 TABLET 1 TAB PO (09:22)
[2024-12-27] MEDS: ENSURE ORIGINAL 237 ML BOTTLE PO ×2 (09:23→21:05)
[2024-12-27] MEDS: ESCITALOPRAM 10 MG TABLET PO (09:23)
[2024-12-27] MEDS: DOXYCYCLINE MONOHYDRATE 100 MG CAPSULE PO (09:23)
[2024-12-27] MEDS: FUROSEMIDE 40 MG/4 ML VIAL IVP (09:28)
[2024-12-27] MEDS: HYDROCORTISONE 20 MG TABLET 10 MG PO ×2 (09:47→14:20)
[2024-12-27] MEDS: BISACODYL 5 MG TABLET PO ×2 (10:44→14:20)
--- NOTE | 2024-12-27 12:27 | P.PN_ITS ---
Progress Note: Subjective Subjective Interval history: Nursing discussed that the patient is constipated. Her last bowel movement was 4 days ago. This morning she seemed to vomit up a little bit of her food. It is thought that she get most of her pills down but may have vomited up 1. She has been medicated with Zofran x 2. She also began complaining of left hip pain and back pain that she rated 8 to 9. The patient also told nursing staff that she only got 1.5 hours of sleep last night. Due to the vomiting this morning I will switch doxycycline from oral to IV. Yesterday I had tried to rearrange her chronic hydrocortisone that she has taken long-term for apparent adrenal insufficiency. The computer system doses this at 10 mg every 12 hours. Ideally the patient should take her first dose first thing in the morning and a second dose at lunchtime or just a couple hours later. The patient had gotten out of usual dosing of this medication at home and I think that is part of why she is so tired during the day and then cannot get any sleep at nighttime. I tried to make these changes in the computer system yesterday, with an increase of her dose to 15 mg in the morning, but today I found that the hydrocortisone was still labeled in the computer as being 10 mg p.o. every 12 hours today, so once again I tried to adjust this dosing in the [employer]. The patient says that she just has a sensation that she does not feel good this morning. She is trying to eat some lunch now consisting of chicken soup. She has passed a little bit of flatus. She has not yet started having bowel movements. She denies chest pain. She denies sensation of dyspnea. She does have a mild cough. She denies dysuria. She discussed how she had been at the hospital in [place] 5 times... And all they did is give me nebulizer treatments and then on the last visit they put me on oxygen and then her family members got frustrated and brought her here. Exam Narrative Exam Narrative: General: Sitting upright in a chair. Looks feeble and generally unwell. Pulmonary: Mild to moderate intensity scattered coarseness throughout. No focal areas of wheezing. Lower extremities: Absolutely no pitting edema at all. GI: Abdomen is nontender to palpation. Bowel sounds are somewhat hypoactive. Cardiac: Heart sounds are somewhat distant but I do not hear any murmurs. Lower extremity: No pitting edema at all in the lower extremities. BMI is 39. Constitutional Vital Signs, click to edit/add: Last Vital Signs Temp 98.3 F 12/27/24 09:21 Pulse 88 12/27/24 11:59 Resp 18 12/27/24 09:21 BP 137/69 12/27/24 09:21 Pulse Ox 94 L 12/27/24 09:21 O2 Del Method Nasal Cannula 12/27/24 09:21 O2 Flow Rate 3 12/27/24 09:21 Progress Note: Objective Labs Labs: Short CBC 12/27/24 Range/Units 05:39 WBC 6.2 (4.0-11.0) 10^3/uL Hgb 13.4 (12.0-16.0) g/dL Hct 40.3 (36.0-48.0) % Plt Count 214 (150-450) 10^3/uL BMP 12/27/24 05:39 Sodium 130 L Potassium 3.5 Chloride 89 L Carbon Dioxide 36.8 H BUN 16.0 Creatinine 0.63 Glucose 112 H Calcium 9.8 Progress Note: A&P Assessment and Plan (1) Shortness of breath: Plan Assessment and Plan: Dyspnea, likely multifactorial. Systolic and diastolic heart failure, restrictive lung disease, recent COVID-19 infection D-dimer is negative therefore the possibility of pulmonary embolism is low. Recent COVID-19 infection which might have left some scarring contributing to her dyspnea and hypoxemia Her BNP is elevated. Patient is known to have CHF. . Patient is on Entresto suggested that the patient may have systolic dysfunction and a cardiomyopathy. Echocardiogram shows left ventricular ejection fraction 55%. RVSP 41. CT scan shows diffuse endobronchial wall thickening with areas of lung scarring and atelectasis as well as subtle areas of ground glass. Findings may be sequela of infectious or possibly inflammatory process. Patient is obese. Likely has restrictive lung disease. Patient had been planning to get a pulmonary function test and a polysomnogram on the outpatient basis. Patient never smoked before. Doubt that she has an obstructive disease. Troponin is negative. Patient had cardiac cath last year (reportedly at [facility]) which came back unremarkable according to patient and her daughter. TSH is normal. Input and output measurement. Monitor electrolytes. Control blood pressure. Hypertensive urgency - Present on admission. Now improving. Resumed home beta-turner and Entresto. As needed IV hydralazine. Left bundle branch block Likely chronic. Progressive generalized weakness and fatigue. Patient has central obesity with lower extremities muscle wasting. No focal deficit. PT OT eval and treatment. Hypokalemia Potassium supplementation Adrenal insufficiency. Patient appears to be prescribed hydrocortisone 10 mg twice daily. The patient says that she usually takes the first dose when she wakes up in the morning at 9:00 and then the second dose at 2:00 in the afternoon. Here in the hospital I am trying to rearrange these so the first dose will be 20 mg to give her a little bit of a boost and the second dose should be given at about 1 or 2 PM. Insomnia. Sleep-wake cycle disruption. Patient reports not sleeping well for several months. Getting the timing around on her hydrocortisone may explain part of this. This hospital does not stock melatonin. Will try trazodone at nighttime. Outpatient polysomnogram will be helpful. Additional plan for the weekend: Treat constipation with 3 doses of Dulcolax 5 mg p.o. Treat nausea with Reglan IV. Stopping Zofran do to its (mild) constipating effects. Continue doxycycline 100 mg IV twice daily for the possibility of post bronchitis and then post COVID bacterial bronchitis. Will diurese her more strongly with Lasix 40 mg IV every morning assisted by spironolactone 25 mg a day. Her daughter questioned if medications like Entresto were needed. Even though her LVEF is normal (at this time) I think she should stay on GDMT for her history of HFrEF... with Toprol 25, Entresto, and I personally would add some spironolactone likely in the long run and maybe in the future they could retry Jardiance or a different SGLT2... but I think she would need to be well recovered from this episode. I doubt that the Jardiance would have caused coughing and mucus production that began righted around the time that she started to try Jardiance. Continue to monitor blood pressures and recheck BNPs and BMPs and she needs strengthening with physical therapy and Occupational Therapy in a medically supervised setting.
[2024-12-27] MEDS: METOCLOPRAMIDE HCL 10 MG/2 ML VIAL IVP (16:26)
[2024-12-27] MEDS: PANTOPRAZOLE SODIUM 40 MG VIAL IV (21:05)
[2024-12-27] MEDS: TRAZODONE HCL 50 MG TABLET 25 MG PO (21:06)
[2024-12-27] MEDS: ATORVASTATIN CALCIUM 10 MG TABLET PO (21:06)
[2024-12-27] MEDS: PRIMIDONE 50 MG TABLET PO (21:06)
[2024-12-27] MEDS: DOXYCYCLINE HYCLATE 100 MG in 0.9 % SODIUM CHLORIDE 100 ML IV (21:06)
[2024-12-28] VITALS (24 sets, daily range): BP systolic 112–151; BP diastolic 57–82; PULSE 67–95; TEMP 36.6–37.8; O2SAT 91–97
[2024-12-28] MEDS: METOCLOPRAMIDE HCL 10 MG/2 ML VIAL IVP ×2 (03:31→21:06)
[2024-12-28 05:29] LABS: Hematocrit 43.4 % (36.0-48.0); Hemoglobin 14.3 g/dL (12.0-16.0); Immature Granulocytes Abs Auto 0.02 10^3/uL (0.00-0.03); Immature Granulocytes Pct Auto 0.3 % (0.0-0.5); Lymphocytes Absolute Auto 1.0 10^3/uL (1.2-3.8); Mean Corpuscular HGB Conc 32.9 g/dL (29.9-35.2); Mean Corpuscular Hemoglobin 29.3 pg (26.7-34.0); Mean Corpuscular Volume 88.9 fL (81.0-99.0); Platelet Count 238 10^3/uL (150-450); Red Blood Count 4.88 10^6/uL (4.20-5.40); White Blood Count 6.6 10^3/uL (4.0-11.0)
[2024-12-28 05:37] LABS: Anion Gap 7.5; Blood Urea Nitrogen 16.0 mg/dL (7.0-18.0); Calcium 9.8 mg/dL (8.5-10.1); Carbon Dioxide 37.9 mmol/L (21.0-32.0); Chloride 89 mmol/L (98-107); Estimated GFR (African America >60 (>=60 mL/min/1.73m^2); Estimated GFR (Non-African Ame >60 (>=60 mL/min/1.73m^2); Glucose 118 mg/dL (74-106); Potassium 3.4 mmol/L (3.5-5.1); Sodium 131 mmol/L (136-145)
[2024-12-28] MEDS: GABAPENTIN 300 MG CAPSULE 600 MG PO ×2 (05:43→21:04)
[2024-12-28] MEDS: ACETAMINOPHEN 325 MG TABLET 650 MG PO ×2 (05:44→17:33)
[2024-12-28] MEDS: LEVOTHYROXINE SODIUM 100 MCG TABLET PO (05:44)
[2024-12-28] MEDS: LEVOTHYROXINE SODIUM 75 MCG TABLET PO (05:44)
[2024-12-28] MEDS: FUROSEMIDE 40 MG/4 ML VIAL IVP (06:32)
--- NOTE | 2024-12-28 07:30 | CM.NOTE ---
Rounds made with Dr. Sanchez, discussed with pt plan of care. No discharge today. PT and OT recommend skilled for pt at discharge. Awaiting to hear back from [facility].
[2024-12-28] MEDS: DOXYCYCLINE HYCLATE 100 MG in 0.9 % SODIUM CHLORIDE 100 ML IV ×2 (08:53→21:07)
[2024-12-28] MEDS: ENOXAPARIN SODIUM 40 MG/0.4 ML SYRINGE SUBQ (08:53)
[2024-12-28] MEDS: PANTOPRAZOLE SODIUM 40 MG VIAL IV (08:53)
[2024-12-28] MEDS: METOPROLOL SUCCINATE 50 MG TAB.ER.24H 25 MG PO (08:54)
[2024-12-28] MEDS: ESCITALOPRAM 10 MG TABLET PO (08:54)
[2024-12-28] MEDS: FOLIC ACID/VIT B6/VIT B12 TABLET 1 TAB PO (08:54)
[2024-12-28] MEDS: ASPIRIN 81 MG TAB.CHEW PO (08:54)
[2024-12-28] MEDS: SACUBITRIL/VALSARTAN 24 MG-26 MG TABLET 2 TAB PO ×2 (08:54→21:04)
[2024-12-28] MEDS: CHOLECALCIFEROL (VITAMIN D3) 125 MCG/5,000 UNIT TABLET PO (08:54)
[2024-12-28] MEDS: SPIRONOLACTONE 25 MG TABLET 50 MG PO (08:54)
--- NOTE | 2024-12-28 09:14 | SWNOTE1 ---
CHRISTA had an email from Antionette at [facility] stating they can accept, but they had several questions. CHRISTA answered replied back to all questions and requested the precert be initiated. CHRISTA waiting to hear back.
[2024-12-28] MEDS: HYDROCORTISONE 20 MG TABLET PO (09:37)
--- NOTE | 2024-12-28 10:01 | SWNOTE1 ---
CHRISTA faxed PT from this weekend, updated physician notes from the weekend, labs, vitals, and nursing notes from today to Al[facility] at [facility].
--- NOTE | 2024-12-28 10:26 | P.PN_ITS ---
Progress Note: Subjective Subjective Interval history: Patient reported having noticeable improvement of her dyspnea sensation. Patient felt nauseous this morning and vomited. She denies any abdominal pain. Exam Narrative Exam Narrative: Patient is sitting in bed on oxygen. Mildly tachypneic. Morbidly obese. Central obesity with lower extremities muscle wasting and atrophy. Trace pitting edema in the legs has resolved. Neck supple, no JVD. Chest exam revealed fine crackles bilaterally. Crackles have resolved. Heart is regular. Abdomen soft, increased abdominal girth therefore clinically I could not exclude the possibility of intra-abdominal mass organomegaly. Constitutional Vital Signs, click to edit/add: Last Vital Signs Temp 98.5 F 12/28/24 07:17 Pulse 76 12/28/24 07:53 Resp 20 12/28/24 07:17 BP 123/57 12/28/24 07:17 Pulse Ox 91 L 12/28/24 04:00 O2 Del Method Nasal Cannula 12/28/24 07:17 O2 Flow Rate 2.5 12/28/24 07:17 Progress Note: Objective Labs Labs: Short CBC 12/28/24 Range/Units 04:52 WBC 6.6 (4.0-11.0) 10^3/uL Hgb 14.3 (12.0-16.0) g/dL Hct 43.4 (36.0-48.0) % Plt Count 238 (150-450) 10^3/uL BMP 12/28/24 04:52 Sodium 131 L Potassium 3.4 L Chloride 89 L Carbon Dioxide 37.9 H BUN 16.0 Creatinine 0.74 Glucose 118 H Calcium 9.8 Progress Note: A&P Assessment and Plan (1) Shortness of breath: Plan Assessment and Plan: Dyspnea, likely multifactorial. Systolic and diastolic heart failure, restrictive lung disease, recent COVID-19 infection D-dimer is negative therefore the possibility of pulmonary embolism is low. Recent COVID-19 infection which might have left some scarring contributing to her dyspnea and hypoxemia Her BNP is elevated. Patient is known to have CHF. . Patient is on Entresto suggested that the patient may have systolic dysfunction and a cardiomyopathy. Echocardiogram shows left ventricular ejection fraction 55%. RVSP 41. CT scan shows diffuse endobronchial wall thickening with areas of lung scarring and atelectasis as well as subtle areas of ground glass. Findings may be sequela of infectious or possibly inflammatory process. Patient is obese. Likely has restrictive lung disease. Patient had been planning to get a pulmonary function test and a polysomnogram on the outpatient basis. Patient never smoked before. Doubt that she has an obstructive disease. Troponin is negative. Patient had cardiac cath last year (reportedly at [facility]) which came back unremarkable according to patient and her daughter. TSH is normal. 12/28 patient responded well to diuretics. BNP had dropped significantly compared to admission state. Change IV diuretics to oral Hypertensive urgency - Present on admission. Now improving. This might have contributed to diastolic heart failure in the subjective shortness of breath Resolved Resumed home beta-turner and Entresto. As needed IV hydralazine. Left bundle branch block Likely chronic. Reported history of cardiomyopathy by her daughter when she was at [facility] different Repeat echocardiogram showed normal EF. Continue beta-turner and Entresto for now. Continue diuretics. Cardiac evaluation. Defer further needed diagnostic and therapeutic dimensional to her cardiovascular disease cardiology team Progressive generalized weakness and fatigue. Patient has central obesity with lower extremities muscle wasting. No focal deficit. PT OT eval and treatment. Patient will be discharged to skilled facility when approved Hypokalemia Potassium supplementation Adrenal insufficiency. Patient appears to be prescribed hydrocortisone 10 mg twice daily. The patient says that she usually takes the first dose when she wakes up in the morning at 9:00 and then the second dose at 2:00 in the afternoon. Here in the hospital I am trying to rearrange these so the first dose will be 20 mg to give her a little bit of a boost and the second dose should be given at about 1 or 2 PM. Insomnia. Sleep-wake cycle disruption. Patient reports not sleeping well for several months. Getting the timing around on her hydrocortisone may explain part of this. This hospital does not stock melatonin. Will try trazodone at nighttime. Outpatient polysomnogram will be helpful.
--- NOTE | 2024-12-28 11:22 | SWNOTE1 ---
CHRISTA faxed all pt's temperatures over to Marilyn at [facility] per there request.
--- NOTE | 2024-12-28 11:40 | CM.NOTE ---
Important Message From Medicare discussed with pt, pt verbalizes understanding and signs paper. Original given to pt and copy placed on pt's chart.
--- NOTE | 2024-12-28 11:42 | SWNOTE1 ---
CHRISTA also received this message from Zully at [facility]: We should be able to submit auth today however we do have to call [employer] because she must have an auto insurance claim open and her MMO MCR printout is showing the auto ins as her primary so my BOM is calling to verify. CHRISTA waiting to hear back from Zully to confirm insurance is alright.
--- NOTE | 2024-12-28 12:17 | SWNOTE1 ---
SW faxed updated PT/OT and progress note from today to [facility].
[2024-12-28] MEDS: HYDROCORTISONE 20 MG TABLET 10 MG PO (12:49)
--- NOTE | 2024-12-28 14:59 | SWNOTE1 ---
SW stopped in pt's room to see if Zully from [facility] stopped in to see her? She stated no. CHRISTA did reach out to Zully to see if she is coming today, waiting to hear back.
--- NOTE | 2024-12-28 15:32 | SWNOTE1 ---
CHRISTA called [facility] 2x, no answer in admissions. CHRISTA sent email to Zully and Antionette at [facility] about the precert and to see if Zully was coming to see pt. CHRISTA still waiting to hear back.
--- NOTE | 2024-12-28 15:33 | SWNOTE1 ---
CHRISTA did receive email from Antionette at [facility] and the marketing analytics manager did get ahold of the auto insurance and they are checking that right now and will let CHRISTA know. She is waiting for Zully to get out of a meeting and she will let CHRISTA know if they are doing an on site today.
--- NOTE | 2024-12-28 15:58 | SWNOTE1 ---
Zully at [facility] messaged SW and she will be here tomorrow morning to see pt. She also stated that the Generation Manager, Amparo is on the phone with [employer] trying to sort out the auto claim.
--- NOTE | 2024-12-28 16:05 | SWNOTE1 ---
CHRISTA received a message from Antionette the admissions at [facility] : Meet Nick, this auto insurance claim was closed on 01/12. The patient or family must call Medicare to let them know this. I will go ahead and submit the auth to [facility] [employer]. Can you please let me know when the PASRR is complete? CHRISTA to let patient and family know to call Medicare. CHRISTA completed PASRR and send results to Alfonso at [facility].
--- NOTE | 2024-12-28 16:19 | SWNOTE1 ---
SW did call pt's daughter, Beatriz, and had to leave a message. In message SW notified her of the auto insurance claim and that pt or family has to call Medicare and that the precert has been started [facility]
--- NOTE | 2024-12-28 18:28 | PM.CACN ---
History of Present Illness History of Present Illness Consult date: 12/28/24 Requesting physician: Indra Sanchez Consult reason: congestive heart failure Chief complaint: SHORTNESS OF BREATH, WEAKNESS, DECOMPENSATED CHF Narrative: This is a 69-year-old woman with prior history of chronic systolic heart failure, diagnosed in March 2024 with an ejection fraction of 35 to 40% by echocardiography at which time she was found to have developed left bundle branch block. Subsequent echocardiogram in August 2024 showed improvement in LV ejection fraction at 40 to 45%. Additional medical history includes hypertension, hyperlipidemia, thyroid disease status post thyroid ablation therapy. A stress test in July 2023 performed at [facility] was negative. A cardiac catheterization in 2019 showed mild CAD. It appears over the past few months she has been having several admissions to the emergency room and hospital for shortness of breath, cough, bronchitis and heart failure. Per records she takes cortisone therapy for adrenal insufficiency. She is now admitted to the [facility] with worsening shortness of breath. She was found to have significantly elevated BNP level. She was treated with intravenous diuretic therapy and her BNP normalized. She reports that her symptoms have been significantly improved. She is now on oxygen therapy. She denies chest pain or palpitations. Her breathing is much improved compared to initial admission. She is currently NYHA class II-III symptoms. She has bilateral lower extremity edema. Her echocardiogram showed further improvement in LVEF to 55% with elevated RVSP at 41 mmHg. He has mild tricuspid and mitral regurgitation. Blood testing shows normal hemoglobin, normal renal function with a eGFR of more than 60 and within normal LFTs. Troponin was negative. Her ECG shows sinus rhythm with left bundle branch block is known previously. He is somewhat frustrated with the fact that she has not been admitted several times over the past few months to the hospital. Of note she had COVID infection about a few weeks ago. Review of Systems ROS Status of ROS 10 or more systems reviewed and unremarkable except as noted in history and below Cardiovascular Reports: edema, shortness of breath with exertion and shortness of breath when lying down; Denies: chest pain Respiratory Reports: shortness of breath, cough and wheezing [facility] Medical History (Updated 12/28/24 @ 18:40 by SELMA CARDOSO) Trigeminal neuralgia ?G50.0 - Trigeminal neuralgia (ICD-10) Hypothyroidism ?E03.9 - Hypothyroidism, unspecified (ICD-10) Hypertension ?I10 - Essential (primary) hypertension (ICD-10) Hyperlipemia ?E78.5 - Hyperlipidemia, unspecified (ICD-10) Hyperglycemia ?R73.9 - Hyperglycemia, unspecified (ICD-10) Hepatitis ?K75.9 - Inflammatory liver disease, unspecified (ICD-10) Heart murmur ?R01.1 - Cardiac murmur, unspecified (ICD-10) COPD (chronic obstructive pulmonary disease) ?J44.9 - Chronic obstructive pulmonary disease, unspecified (ICD-10) Cataract ?H26.9 - Unspecified cataract (ICD-10) Anxiety ?F41.9 - Anxiety disorder, unspecified (ICD-10) Anal cryptitis ?K62.89 - Other specified diseases of anus and rectum (ICD-10) Abnormal involuntary movements ?R25.9 - Unspecified abnormal involuntary movements (ICD-10) Lichen disease ?L28.0 - Lichen simplex chronicus (ICD-10) Adrenocortical insufficiency ?E27.40 - Unspecified adrenocortical insufficiency (ICD-10) Surgical History (Updated 12/25/24 @ 16:46 by Winifred Eckert RN) History of left knee replacement ?Z96.652 - Presence of left artificial knee joint (ICD-10) History of hysterectomy ?Z90.710 - Acquired absence of both cervix and uterus (ICD-10) History of cholecystectomy ?Z90.49 - Acquired absence of other specified parts of digestive tract (ICD-10) History of section ?Z98.891 - History of uterine scar from previous surgery (ICD-10) History of cardiac catheterization ?Z98.890 - Other specified postprocedural states (ICD-10) History of right knee joint replacement ?Z96.651 - Presence of right artificial knee joint (ICD-10) Family History (Updated 12/25/24 @ 11:05 by Winifred Eckert RN) Grandmother Family history of stroke Mother Family history of stroke Family history of hypertension Family history of diabetes mellitus Family history of CHF (congestive heart failure) Father Family history of myocardial infarction Family history of hypertension Family history of CHF (congestive heart failure) Brother Family history of myocardial infarction Family history of hypertension Son Family history of cancer Social History (Updated 12/25/24 @ 11:06 by Winifred Eckert RN) Within the past year, how often did you have a drink containing alcohol: never Score interpretation: A score less than 3 is consistent with normal alcohol consumption. Smoking status: Never smoker Non-prescribed substance use: denies use Highest level of school completed/degree received: high school graduate Little interest or pleasure in doing things: not at all Feeling down, depressed, or hopeless: not at all Meds Home Medications and Allergies Home Medications ?Medication ?Instructions ?Recorded ?Confirmed ?Type albuterol sulfate 90 mcg/actuation 2 puff inhalation Q4H PRN 12/25/24 12/25/24 History aerosol inhaler shortness of breath or wheezing aspirin 81 mg chewable tablet 81 mg PO DAILY 12/25/24 12/25/24 History (Jose Enrique Chewable Low Dose Aspirin) cholecalciferol (vitamin D3) 125 125 mcg PO DAILY 12/25/24 12/25/24 History mcg (5,000 unit) tablet (Vitamin D3) elderberry gummies 1 dose PO DAILY 12/25/24 12/25/24 History escitalopram oxalate 10 mg tablet 10 mg PO .QD 12/25/24 12/25/24 History furosemide 40 mg tablet 20 mg PO DAILY 12/25/24 12/25/24 History gabapentin 600 mg tablet 900 mg PO Q8H 12/25/24 12/25/24 History hydrocortisone 10 mg tablet 10 mg PO Q12H 12/25/24 12/25/24 History hydroxychloroquine 200 mg tablet 200 mg PO BID 12/25/24 12/25/24 History ipratropium 0.5 mg-albuterol 3 mg 3 ml inhalation Q4H PRN shortness 12/25/24 12/25/24 History (2.5 mg base)/3 mL nebulization of breath or wheezing soln levothyroxine 175 mcg tablet 175 mcg PO DAILY 12/25/24 12/25/24 History loratadine 10 mg tablet 10 mg PO Q24H PRN allergy symptoms 12/25/24 12/25/24 History metoprolol succinate 50 mg 50 mg PO BID 12/25/24 12/26/24 History tablet,extended release 24 hr omega-3s 350 mg-dha 100 mg-epa 225 1 cap PO DAILY 12/25/24 12/25/24 History mg-other [id number] oil capsule ([place]-3) omeprazole 40 mg capsule,delayed 40 mg PO DAILY 12/25/24 12/25/24 History release pravastatin 20 mg tablet 20 mg PO DAILY 12/25/24 12/25/24 History primidone 50 mg tablet 50 mg PO DAILY 12/25/24 12/25/24 History sacubitril 49 mg-valsartan 51 mg 1 tab PO BID 12/25/24 12/25/24 History tablet (Entresto) vitamin B complex 1 tab PO DAILY 12/25/24 12/25/24 History diclofenac sodium 75 mg 75 mg PO BID 12/26/24 12/26/24 History tablet,delayed release Allergies Allergy/AdvReac Type Severity Reaction Status Date / Time tree nut Allergy Severe Swelling Verified 12/25/24 04:14 of Lip/Tongue/Throat acetaminophen (From Percocet) Allergy Mild Hives Verified 12/25/24 04:14 cephalexin (From Keflex) Allergy Mild Hives Verified 12/25/24 04:14 oxycodone (From Percocet) Allergy Mild Hives Verified 12/25/24 04:14 Exam Constitutional Vital Signs, click to edit/add: Last Vital Signs Temp 99 F 12/28/24 15:29 Pulse 73 12/28/24 17:46 Resp 20 12/28/24 15:29 BP 112/63 12/28/24 15:29 Pulse Ox 91 L 12/28/24 15:29 O2 Del Method Nasal Cannula 12/28/24 15:29 O2 Flow Rate 2 12/28/24 15:29 Common normals: oriented x3 and alert General appearance: ill appearing and frail appearing Nutritional appearance: obese Orientation/consciousness: Yes awake, Yes oriented to person and Yes oriented to place Eye Common normals: conjunctivae normal Chest Common normals: inspection of chest normal Chest: symmetrical chest wall rise Respiratory Common normals: no use of accessory muscles Effort & inspection: able to speak in complete sentences, symmetric chest movement and decreased respiratory effort Auscultation: clear to auscultation bilaterally and diminished lung sounds; no crackles, no rales and no wheezes Cardio Common normals: no JVD, regular rate, regular rhythm, S1 normal heart sound, S2 normal heart sound and no murmurs Peripheral pulses: radial pulses present GI Common normals: Normal to inspection, nondistended, normoactive bowel sounds present Extremity General: edema Neuro Common normals: oriented x3, moves all extremities, no focal motor deficits and no sensory deficits noted Psych Thought process: normal thought process Attention/concentration: concentration grossly intact Memory/cognition: memory grossly intact Insight: insight good Judgement: judgment good Results Labs and Meds Lab results: CBC 12/28/24 Range/Units 04:52 WBC 6.6 (4.0-11.0) 10^3/uL RBC 4.88 (4.20-5.40) 10^6/uL Hgb 14.3 (12.0-16.0) g/dL Hct 43.4 (36.0-48.0) % Plt Count 238 (150-450) 10^3/uL Neut # (Auto) 4.5 (1.4-6.5) 10^3/uL Lymph # (Auto) 1.0 L (1.2-3.8) 10^3/uL [place] # (Auto) 0.8 (0.3-0.8) 10^3/uL Eos # (Auto) 0.2 (0.0-0.7) 10^3/uL Baso # (Auto) 0.1 (0.0-0.1) 10^3/uL Comprehensive Metabolic Panel 12/28/24 Range/Units 04:52 Sodium 131 L (136-145) mmol/L Potassium 3.4 L (3.5-5.1) mmol/L Chloride 89 L (98-107) mmol/L Carbon Dioxide 37.9 H (21.0-32.0) mmol/L BUN 16.0 (7.0-18.0) mg/dL Creatinine 0.74 (0.55-1.02) mg/dL Glucose 118 H (74-106) mg/dL Calcium 9.8 (8.5-10.1) mg/dL Intake and Output 12/28/24 12/28/24 12/28/24 07:59 15:59 23:59 Intake Total 700 / 940 240 / 940 Output Total 200 / 900 500 / 625 125 / 625 Balance -200 / -800 200 / 315 115 / 315 Intake: Oral 600 / 840 240 / 840 IV 100 / 100 Doxycycline Hyclate 100 mg In 0 100 / 100 .9 % Sodium Chloride 100 ml @ 100 mls/hr IV Q12H [facility] Rx#: [id number] Output: Urine 200 / 900 500 / 625 125 / 625 Other: # Unmeasured Voids 1 # Bowel Movements 1 # Emeses 1 Weight 98.7 kg Assessment and Plan Assessment and Plan (1) Acute on chronic systolic heart failure: (2) Shortness of breath: (3) LBBB (left bundle branch block): (4) Pulmonary hypertension: Plan 1. Acute on chronic systolic heart failure: She clearly had decompensated heart failure based off of the symptoms and elevated BNP and a residual edema and volume overload noticed on exam. She has improved with diuresis. She is frustrated due to recurrent admissions with similar conditions in the past few months. I explained to her the disease management of heart failure. I educated her regarding low-salt diet, monitoring intake and output and daily weights. I told her she will need close follow-up in the heart failure clinic for further management. Her echocardiogram today showed improvement in ventricular function to an ejection fraction of 55%. At the time being she has improved significantly. I recommend to continue metoprolol succinate, spironolactone and Entresto. I recommend increasing furosemide to 40 mg PO twice daily. She is to be on Jardiance 10 mg daily previously and I am not sure why this was not continued as a home medication. This can be considered as an outpatient. 2. Shortness of breath: Likely multifactorial due to heart failure as well as recent COVID infection. Management of heart failure as above. 3. Left bundle branch block: This is stable. Likely part of the nonischemic cardiomyopathy that she has. 4. Pulmonary hypertension: Noted on echocardiogram. This is likely secondary to left-sided heart disease. It should improve with the diuretic therapy. Following discharge she will need an early follow-up in the cardiology clinic within 7 days of discharge to review her overall progress. She usually follows with Dr. Joan Hewitt.
[2024-12-28] MEDS: CALCIUM CARBONATE 500 MG (200MG ELEMENTAL) TAB CHEW PO (18:36)
[2024-12-28] MEDS: PRIMIDONE 50 MG TABLET PO (21:04)
[2024-12-28] MEDS: TRAZODONE HCL 50 MG TABLET 25 MG PO (21:04)
[2024-12-28] MEDS: ATORVASTATIN CALCIUM 10 MG TABLET PO (21:05)
[2024-12-29] VITALS (12 sets, daily range): BP systolic 129–150; BP diastolic 66–72; PULSE 60–73; TEMP 36.7–36.8; O2SAT 93
[2024-12-29] MEDS: ACETAMINOPHEN 325 MG TABLET 650 MG PO ×2 (02:57→10:58)
[2024-12-29] MEDS: LEVOTHYROXINE SODIUM 100 MCG TABLET PO (06:15)
[2024-12-29] MEDS: LEVOTHYROXINE SODIUM 75 MCG TABLET PO (06:15)
--- NOTE | 2024-12-29 08:10 | CM.NOTE ---
Rounds made with Dr. Sanchez, discussed plan of care with pt. Pt will discharge to skilled facility when medically stable.
[2024-12-29] MEDS: FOLIC ACID/VIT B6/VIT B12 TABLET 1 TAB PO (08:26)
[2024-12-29] MEDS: GABAPENTIN 300 MG CAPSULE 600 MG PO (08:26)
[2024-12-29] MEDS: ASPIRIN 81 MG TAB.CHEW PO (08:26)
[2024-12-29] MEDS: ESCITALOPRAM 10 MG TABLET PO (08:26)
[2024-12-29] MEDS: PANTOPRAZOLE SODIUM 40 MG TABLET.DR PO (08:26)
[2024-12-29] MEDS: ENOXAPARIN SODIUM 40 MG/0.4 ML SYRINGE SUBQ (08:26)
[2024-12-29] MEDS: SPIRONOLACTONE 25 MG TABLET PO (08:26)
[2024-12-29] MEDS: SACUBITRIL/VALSARTAN 24 MG-26 MG TABLET 2 TAB PO (08:26)
[2024-12-29] MEDS: FUROSEMIDE 40 MG TABLET PO (08:26)
[2024-12-29] MEDS: CHOLECALCIFEROL (VITAMIN D3) 125 MCG/5,000 UNIT TABLET PO (08:27)
[2024-12-29] MEDS: HYDROCORTISONE 20 MG TABLET PO (08:27)
[2024-12-29] MEDS: METOPROLOL SUCCINATE 50 MG TAB.ER.24H 25 MG PO (08:27)
[2024-12-29] MEDS: DOXYCYCLINE HYCLATE 100 MG in 0.9 % SODIUM CHLORIDE 100 ML IV (08:28)
[2024-12-29] MEDS: 0.9 % SODIUM CHLORIDE 250 ML 10 ML IV (08:42)
--- NOTE | 2024-12-29 11:51 | CM.NOTE ---
CM in to speak with pt regarding heart failure clinic. Pt sleeping at this time.
--- NOTE | 2024-12-29 12:05 | P.DS_ITS ---
DS: Providers Provider Date of admission: 12/25/24 10:15 Primary care physician: JOSEPH FELIX DO Consults: 12/25/24 Consult to Dietitian Routine Reason for consultation: Weight loss 12/25/24 08:59 Occupational Therapy Eval and Treat Routine Reason for consultation: Weakness Physical Therapy Eval and Treat Routine Reason for consultation: Weakness 12/26/24 14:35 Consult to Cardiology Routine Reason for consultation: history of systolic CHF DS: Diagnosis Discharge Diagnosis (1) Shortness of breath: (2) LBBB (left bundle branch block): (3) Pulmonary hypertension: (4) Congestive heart failure: (5) Generalized weakness: (6) Acute diastolic heart failure: Plan As listed above, below and others that are not listed DS: Summary Hospital Course Hospital Course: Mrs. Catalan is a 69-year-old female who came in with unable to sleep and having shortness of breath and dyspnea on exertion. No fever or chills. Cough productive to frothy white sputum. Dyspnea, likely multifactorial. Diastolic heart failure in the setting of hypertensive urgency, restrictive lung disease, recent COVID-19 infection causing residual bronchial thickening and scarring as seen on CT. Patient also has mild pulmonary hypertension. Hypertensive urgency causing a degree of diastolic heart failure and the subjective shortness of breath Degree of restrictive lung disease. Doubt any obstructive pulmonary process. Patient never smoked in her life D-dimer is negative therefore the possibility of pulmonary embolism is low. Recent COVID-19 infection which might have left over bronchial thickening scarring contributing to her dyspnea and hypoxemia Her BNP is elevated. Patient is known to have CHF. Echocardiogram shows left ventricular ejection fraction 55%. RVSP 41. CT scan shows diffuse endobronchial wall thickening with areas of lung scarring and atelectasis as well as subtle areas of ground glass. Findings may be sequela of infectious or possibly inflammatory process. Likely caused by recent COVID infection and the residual bronchial thickening. Patient is obese. Likely has restrictive lung disease. Patient had been planning to get a pulmonary function test and a polysomnogram on the outpatient basis. Patient never smoked before. Doubt that she has an obstructive disease. Troponin is negative. Patient had cardiac cath last year (reportedly at [facility]) which came back unremarkable according to patient and her daughter. TSH is normal. Patient responded very well to diuretics. BNP dropped from 2500 to 300 Patient is a liter negative balance Trace edema noted on examination and her lower extremities have resolved Hypertensive urgency - Present on admission. Now improving. This might have contributed to diastolic heart failure in the subjective shortness of breath Resolved Resumed home beta-turner and Entresto. As needed IV hydralazine. Blood pressure has been stable over the last 48 hours. Left bundle branch block Likely chronic. Reported history of cardiomyopathy by her daughter when she was at [facility] different Repeat echocardiogram showed normal EF. Continue beta-turner and Entresto for now. Continue diuretics. Cardiac evaluation. Defer further needed diagnostic and therapeutic dimensional to her cardiovascular disease cardiology team Progressive generalized weakness and fatigue. Patient has central obesity with lower extremities muscle wasting. No focal deficit. PT OT eval and treatment. Patient will be discharged to skilled facility when approved Hypokalemia Potassium supplementation Adrenal insufficiency. Patient appears to be prescribed hydrocortisone 10 mg twice daily. The patient says that she usually takes the first dose when she wakes up in the morning at 9:00 and then the second dose at 2:00 in the afternoon. Here in the hospital I am trying to rearrange these so the first dose will be 20 mg to give her a little bit of a boost and the second dose should be given at about 1 or 2 PM. Insomnia. Sleep-wake cycle disruption. Patient reports not sleeping well for several months. Getting the timing around on her hydrocortisone may explain part of this. Patient has slept good over the last 48 hours. Continue nightly trazodone *Functional impairment. No focal deficit Patient was seen by PT OT team and recommended to have short-term skilled care. Patient will be discharged to a skilled facility when approved. Chronic, subacute medical conditions not listed above, abnormal labs and imaging, incidental findings seen on labs and or imaging. These would need to be addressed. Could be addressed later on or in the outpatient setting by PCP collaboration with other needed outpatient providers when time and condition are appropriate. Patient has multiple complex medical issues as listed above and others that are not listed. All appear to be stable. Patient is feeling great. I do not have any clear or strong clinical justification to extend inpatient hospitalization. Patient however will require close and frequent monitoring as well as additional work-up, investigation and therapeutic intervention that could take place from this point on post discharge. That is to prevent relapse, decompensation, rehospitalization and other medical implications.. I instructed patient to ask her primary care doctor to obtain [facility] record entirely to address abnormalities seen on labs and imaging that I have and have not addressed during this hospitalization, follow-up on pending blood work, imaging and pathology is if available and to follow-up on needed medical care in the outpatient setting. Time Spent with Patient Time attestation: Total time spent providing and/or coordinating discharge services: Time spent: greater than 30 minutes Exam Narrative Exam Narrative: Patient is sitting in bed on oxygen. Mildly tachypneic. Morbidly obese. Central obesity with lower extremities muscle wasting and atrophy. Trace pitting edema in the legs has resolved. Neck supple, no JVD. Chest exam revealed fine crackles bilaterally. Crackles have resolved. Heart is regular. Abdomen soft, increased abdominal girth therefore clinically I could not exclude the possibility of intra-abdominal mass organomegaly. Constitutional Vital Signs, click to edit/add: Last Vital Signs Temp 98.2 F 12/29/24 07:58 Pulse 66 12/29/24 11:41 Resp 20 12/29/24 07:58 BP 129/66 12/29/24 07:58 Pulse Ox 93 L 12/29/24 10:54 O2 Del Method Nasal Cannula 12/29/24 10:54 O2 Flow Rate 2 12/29/24 10:54 Discharge Plan Discharge Disposition: Xfer [facility] Discharge Medications: New acetaminophen [Tylenol] 325 mg Tablet 650 mg PO Q6H PRN (Reason: Pain or fever) Qty: 0 0RF trazodone 50 mg Tablet 50 mg PO QHS Qty: 0 0RF sennosides-docusate sodium 8.6-50 mg Tablet 1 tab PO QD PRN (Reason: Constipation) Qty: 0 0RF spironolactone 25 mg Tablet 25 mg PO QD Qty: 0 0RF gabapentin 300 mg Capsule 300 mg PO TID Qty: 0 0RF Ensure Original 0.04-1.05 gram-kcal/mL Liquid 1 ea PO BID Qty: 237 3RF torsemide 20 mg tablet 20 mg PO DAILY Qty: 30 0RF levothyroxine 150 mcg capsule 150 mcg PO DAILY Qty: 30 0RF hydrocortisone 5 mg tablet 5 mg PO HS Qty: 30 0RF Rx Instructions: Take 15 mg in the morning and 5 mg in the evening metoprolol succinate [Toprol XL] 25 mg tablet extended release 24 hr 25 mg PO DAILY Qty: 30 0RF hydrocortisone 10 mg tablet 15 mg PO DAILY Qty: 30 0RF Rx Instructions: Take 15 mg in the morning and 5 mg in the evening Continued sacubitril-valsartan [Entresto] 49-51 mg tablet 1 tab PO BID pravastatin 20 mg tablet 20 mg PO DAILY omeprazole 40 mg capsule,delayed release(DR/EC) 40 mg PO DAILY Rx Instructions: before breakfast primidone 50 mg tablet 50 mg PO DAILY hydroxychloroquine 200 mg tablet 200 mg PO BID vitamin B complex Tablet 1 tab PO DAILY aspirin [Jose Enrique Chewable Aspirin] 81 mg tablet,chewable 81 mg PO DAILY cholecalciferol (vitamin D3) [Vitamin D3] 125 mcg (5,000 unit) tablet 125 mcg PO DAILY escitalopram oxalate 10 mg tablet 10 mg PO .QD ipratropium-albuterol 0.5 mg-3 mg(2.5 mg base)/3 mL solution for nebulization 3 ml inhalation Q4H PRN (Reason: shortness of breath or wheezing) Discontinued levothyroxine 175 mcg tablet 175 mcg PO DAILY furosemide 40 mg tablet 20 mg PO DAILY metoprolol succinate 50 mg tablet extended release 24 hr 50 mg PO BID loratadine 10 mg tablet 10 mg PO Q24H PRN (Reason: allergy symptoms) gabapentin 600 mg tablet 900 mg PO Q8H [place] Blue [place]-3 350-100-225 mg capsule 1 cap PO DAILY elderberry gummies 1 dose PO DAILY albuterol sulfate 90 mcg/actuation HFA aerosol inhaler 2 puff INHALATION Q4H PRN (Reason: shortness of breath or wheezing) diclofenac sodium 75 mg tablet,delayed release (DR/EC) 75 mg PO BID Print Language: Frisian Activity Restrictions/Additional Instructions: I may not have addressed or treated all of your medical illnesses or the abnormal blood work or imaging studies during this hospitalization. Please ask your primary care provider to obtain [facility] records entirely to follow up on all of the abnormal physical, laboratory, and imaging findings that I have not addressed. Please return back to the emergency room or seek medical attention if your symptoms worsen or return. Discharging you from [facility] does not mean that your medical care ends here and now. You may still need additional monitoring, work up, investigation, and treatment plan to be handled from this point on by out patient providers including your primary care provider and specialists. For any medication question, please contact your retail pharmacist or your primary care provider. For [facility] provider CBC and BMP weekly for 3 weeks Adjust diuretics to keep her in euvolemic state Fall precautions Oxygen supplementation 2 to 3 L to keep saturation above 92%. Thank you. Course Developer/Physician/Allergy/Immunology Instructions: [facility] Forms: Portal Instructions Follow Up Appointments: 01/07 @ 1:40pm with [facility] [phone]
--- NOTE | 2024-12-29 12:26 | SWNOTE1 ---
CHRISTA received a message from Antionette at [facility] and pt is approved. CHRISTA let case management know. Discharge order is in. CHRISTA to figure out transport and send dc information to [facility].
--- NOTE | 2024-12-29 12:40 | SWNOTE1 ---
CHRISTA spoke to pt's daughter Beatriz in regards to transport. SW let her know trips does not have any more availability today. SW let her know that we can set up stretcher transport, but not a guarantee that insurance will cover, or family can transport. Beatriz is going to call her brother and call CHRISTA back.
--- NOTE | 2024-12-29 12:54 | CM.NOTE ---
CM spoke with pt's daughter regarding CHF clinic. Daughter states pt was seeing someone that was set up by Dr. Hay (medication management). Pt would go there for vitals and weight check for medication adjustments. Pt wishes at this time to follow [facility] cardiology. Daughter will discuss medication management with [facility] cardiology at f/u.
--- NOTE | 2024-12-29 13:10 | SWNOTE1 ---
Pt's daughter called back and family has decided to transport. Someone will be there around 1:30/1:45. There are going to try and get her oxygen tank, but if they can't, family can sign out one of our tanks and return. CHRISTA did get permission from Perla Director of Med/Surge. CHRISTA and case management also let daughter know about follow up with [facility] Cardiology here in [place]. SW advised to coordinate with [facility] in regards to transport. Daughter did let SW and case management know that pt does have follow up with pulmonolgy on the same date and asked if pt should. It was recommended that pt keep follow ups, daughter voiced she will compare times for both and try to coordinate everything. No further questions at this time. CHRISTA notified nurse and Antionette at [facility] that family is transporting and the ETA for family. CHRISTA faxed dc med rec, dc summary, PT/OT from today, and most recent vitals to Antionette at [facility]. Pt is going there skilled.
[2024-12-29] MEDS: CALCIUM CARBONATE 500 MG (200MG ELEMENTAL) TAB CHEW PO (13:17)
--- NOTE | 2024-12-29 13:33 | PC.NURSE ---
Report called to Joanie on [facility]. Instructed to send O2 tank back to [facility] with family member Verbalizes understanding
--- NOTE | 2024-12-30 08:55 | CM.NOTE ---
[facility] called CM office for inpatient/observation status clarification. They were notified that the patient became inpatient on 12/26 and was observation on 12/25.
--- OUTSIDE RECORDS SUMMARY | 2024-12-30 12:40 | XMS_ITS | Encounter Summary ---
Author Organization [facility] Address [address] [place] [address] Care Team Providers Care Therapeutic Radiologist Name Role Phone Nicola James MD Primary Care Provider [phone] Nicola James MD Primary Care Provider [phone] Encounter Details DateTypeDepartmentCare Team (Latest Contact Info)Pulrclqbzkz44/25/2024Clinisync Result Encounter [facility] Unsolicited Gregorio Mancini, [address] [place] [address] Social History Tobacco UseTypesPacks/DayYears UsedDateSmoking Tobacco: NeverSmokeless Tobacco: NeverCommentsUnknownSex and Gender InformationValueDate RecordedSex Assigned at BirthNot on fileLegal MpiJvluqx57/06/2024 12:35 PM EDTGender IdentityNot on fileSexual OrientationNot on filedocumented as of this encounter Plan of Treatment DateTypeDepartmentCare Team (Latest Contact Info)Isbdmftmpnl04/20/2025 9:30 AM ESTOffice Visit [facility] [address] [place] [address] Gregorio Mancini DO [address] [place] [address] documented as of this encounter Procedures Procedure [...] PCP - GeneralFamily Medicine/ Nicola James MD [address] [place] [address] PCP - GeneralFamily Medicine05/19/24documented as of this encounter
--- OUTSIDE RECORDS SUMMARY | 2024-12-30 12:40 | XMS_ITS | Clinical Summary ---
Author Organization [facility] Address [address] [facility] [place] [address] Care Team Providers Care Audiovisual Librarian Name Role Phone Nicola James MD Primary Care Provider [phone] Allergies Active AllergyReactionsCriticalityNoted DateCommentsAcetaminophenMedium 06/09/2014 Other Reaction(s): Other (See Comments) Cannot take due to history of Hepatitis WstkdlbdrjVrjhdMpihle95/15/2015Oxycodone-AcetaminophenHives,KuuyVru8801/20/2021 Peanut-Containing Drug QjypuuwsDuuluj65/20/2018 Other Reaction(s): Other (See Comments) Blisters in [...] pain of right knee01/25/2024Status post right knee ccpesruzxsu56/30/2024ifficulty sdrpbec2201/25/2024 Family History Medical HistoryRelationNameCommentsDiabetesFatherHeart diseaseFatherHypertension FatherDiabetesFather's SisterHypertensionFather's SisterCancerMaternal GrandfatherStrokeMaternal GrandmotherDiabetesMotherHeart diseaseMother HypertensionMotherCancerMother's BrotherCancerMother's SisterDiabetesMother's SisterHeart diseaseMother's SisterHypertensionMother's SisterStrokeMother's SisterHeart diseasePaternal GrandfatherDiabetesPaternal GrandmotherCancerSon RelationNameStatusCommentsFatherDeceasedFather's SisterDeceasedMaternal GrandfatherDeceasedMaternal GrandmotherDeceasedMotherDeceasedMother's Brother DeceasedMother's SisterDeceasedPaternal GrandfatherDeceasedPaternal Grandmother DeceasedSonDeceased Social History Tobacco UseTypesPacks/DayYears UsedDateSmoking Tobacco: NeverSmokeless Tobacco: Never Tobacco Cessation:Counseling Given: Not Answered CommentsUnknownSex and Gender InformationValueDate RecordedSex Assigned at BirthNot on fileLegal VyjPfwfmi28/06/2024 12:35 PM EDTGender IdentityNot on fileSexual OrientationNot on file Last Filed Vital Signs Vital SignReadingTime TakenCommentsBlood Pressure--Pulse--Iieritwhvvf61.6 ??C (97.8 ??F)07/19/2023 10:21 AM EDTRespiratory Rate--Oxygen Saturation--Inhaled Oxygen Concentration--Stgntc776 kg (244 lb)06/29/2024 8:27 AM VVIZfwocm592 cm (5' 3 )06/29/2024 8:27 AM EDTBody Mass Index43.22006/29/2024 8:27 AM EDT Plan of Treatment DateTypeDepartmentCare Team (Latest Contact Info)Tndckomaocn00/20/2025 9:30 AM ESTOffice Visit [facility] [address] [address] Gregorio Mancini, DO [address] [place] [address] Insurance Care Teams Team MemberRelationshipSpecialtyStart DateEnd Date Nicola James MD [address] [place] [address] PCP - GeneralFamily Medicine05/19/24
--- OUTSIDE RECORDS SUMMARY | 2024-12-30 12:40 | XMS_ITS | Patient Health Record ---
Author Organization [facility] Address [address] [place] [address] Care Team Providers Care Curator Of Photography And Prints Name Role Phone Nicola James DO Primary Care Provider Colten Givens Unavailable [phone] Allergies Allergen (clinical drug ingredient) Drug/Non Drug [...] route every day ORAL SYNTHROIDUnknownloratadineActivegabapentinActivehydrocortisoneActive triamcinoloneUnknownPotassium ChlorideUnknownVitamin J2Ccvdbfzwlxqlytptzndpacrl Activeciclopirox topicalUnknownelderberryActivefurosemideActivetacrolimus topicalUnknownDICLOFENAC SODIUMActiveB-Complex vitamin b complexORALVITAMIN B COMPLEXUnknownpravastatinActiveDiclofenac Sodium sodium 75 mgtake 1 tablet by oral route 2 times every day ORALDICLOFENAC TGWIMS1406/15/2014UnknownaspirinActive AmLODIPine Besylate 5 mgORALAMLODIPINE YYSAZSLGYgfdtzKjhnw-0KQMRTJVJYAW-1Ehzxutv Social History Tobacco Use: Social History Observation Description Date Details (start date - stop date) Never Smoker NA - NA Smoking History Question Answer Notes Smoking Status NonSmoker Problems Problem Type SNOMED Code ICD Code Onset Dates Problem Status W/U Status Risk Notes Problem 338253071 Cervical spondylosis with ra diculopathy (M47.22) RevgopusskbasoeQdnpvni12699832Ylfotnhf spinal stenosis (M48.02)Activeconfirmed Ywbcoeh864035069Rgvfzp stenosis, lumbosacral region (M48.07)Activeconfirmed ProblemDisplacement of lumbar intervertebral disc without myelopathy (80867532) Other intervertebral disc displacement, lumbar region (M51.26)Activeconfirmed Kgremmw016552635Rmuuys of muscle, fascia and tendon of other parts of biceps, right arm, initial encounter (S46.211A)GgdxhokexvgtjtoZzitjbr096975323Moybwm of muscle, fascia and tendon of other parts of biceps, right arm, subsequent encounter (S46.211D)UmwhiaxgwpdtwpbEfkienp151043248586Vnrygund of left artificial knee joint (Z96.652)IgmgpvonnwfyixdPastjzg74697298453509122 Paresthesia of right upper extremity (R20.2)ActiveconfirmedProblem 946966771991867Rmwvkbh osteoarthritis of right knee (M17.11)Activeconfirmed ProblemEnthesopathy of hip region (62866364)Greater trochanteric bursitis of right hip (M70.61)ActiveconfirmedProblemEnthesopathy of hip region (20517722) Greater trochanteric bursitis of left hip (M70.62)ActiveconfirmedProblem 770942042Jrdowgvuesg spondylosis with radiculopathy (M47.27)Activeconfirmed Okzqulo0990579994Ymvjh pain of right knee (M25.561)ActiveconfirmedProblemLumbar radicular pain (4048531731)Lumbar radicular pain (M54.16)ActiveconfirmedProblem 00326231Smyzizuzugj radiculitis (M54.17)JjwasxhlqofborsWgkgbcq91714836530626265 Pain of both sacroiliac joints (M53.3)BcyhysbijchxjofEsfwmsx60983474Qcxpq pain of right shoulder (M25.511)ActiveconfirmedProblemProsthetic joint dislocation (876759711)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)Active confirmedProblemArtificial joint pain, initial encounter (T84.84XA)Active huslaziisTaopwez37109828Obcqfivbjqci of intervertebral disc of lumbosacral region (M51.37)QmbjdyvormxfiqvOgvxohw46002399Hvxywrkvaxrv of intervertebral disc at C4-C5 level (M50.321)XawhwroiwxmpqrhKnepjpi06538124Jkenmtmygvpk of C5-C6 intervertebral disc (M50.322)SipgenesqceguikIqngraa322945638Xcpiauxucf tear of right rotator cuff, unspecified whether traumatic (M75.111)Activeconfirmed Amggllp30657473Fqibavewkc muscle pain (M79.18)ActiveconfirmedProblem 4462232685927018Tvpyt shoulder tendinitis (M77.8)Activeconfirmed Plan Of Treatment Pending Test Test Name Order Date ESR 11/26/2022 CRP 11/26/2022 DME - Knee Hinged Brace OTS 11/26/2022 PT 12/10/2022 CT KNEE LEFT WO CONTRAST 11/26/2022 RSS: KNEE POST OP LEFT 3V AP,LAT, PATELL A [id number] 11/26/2022 RSS: KNEE RIGHT CIRA AP,CIRA PA ,RIGHT LAT ,CIRA SUNRISE - [id number] 11/26/2022 Insurance Providers Payer Name Payer Address Payer Phone Subscriber Number Group Number Insured Name Patient Relationship to Insured Coverage Start Date Coverage End Date Medicare Human [address] [address] [place] [address] [id number] Jv RONDON - patient is the insured [...]
--- OUTSIDE RECORDS SUMMARY | 2024-12-30 12:40 | XMS_ITS | Clinical Summary ---
Author Organization [facility] Address [address] [place] [address] Care Team Providers Care Distillery Manager Name Role Phone Unavailable Primary Care Provider Unavailabl e Social History Tobacco UseTypesPacks/DayYears UsedDateSmoking Tobacco: Never Assessed CommentsUnknownSex and Gender InformationValueDate RecordedSex Assigned at Not on fileLegal NcpNlshvn28/03/2025 8:51 AM ESTGender IdentityNot on fileSexual OrientationNot on file Plan of Treatment DateTypeDepartmentCare Team (Latest Contact Info)Nrgajkwmtmh90/13/2025 1:40 PM ESTOffice Visit [facility] [address] [place] [address] Emma Cool, EMERGENCY COMMUNICATIONS OPERATOR [address] [place] [address] Health MaintenanceDue DateLast DoneCommentsCT Agialuvgghmc73/15/1955olonoscopy 1954Diabetes: Hemoglobin A1C1954FIT-DNA1954FIT1954 Medicare Annual Wellness (AWV)1955 3483Tlppjmkcxmvmo77/15/1955Diabetes: Retinopathy Rugcoqmqh87/15/1965Depression Kootfrspw55/15/1967Zoster Vaccines (1 of 2)Colorectal Cancer Uiyyrpzuj63/17/6601LWIZ23/17/2019 02/10/2018Fall Risk Mcwcbsuay08/15/2020Diabetes: Urine Protein Screening OVID-19 Vaccine (2024- season)2024Influenza Vaccine (#1)509/, 01/08/2023, 11/30/2021, Additional history leuzdyQieoakobv40/28/938350/dult Jexbcda12/, 12/07/1996 Pneumococcal Vaccine: 50+ QmfunPcoyctlha35/31/2022HIB VaccinesAged OutNo longer eligible based on patient's age to complete this topicHPV VaccinesAged OutNo longer eligible based on patient's age to complete this topicIPV VaccinesAged OutNo longer eligible based on patient's age to complete this topicMeningococcal B VaccineAged OutNo longer eligible based on patient's age to complete this topicMeningococcal VaccineAged OutNo longer eligible based on patient's age to complete this topicRotavirus VaccinesAged OutNo longer eligible based on patient's age to complete this topic Insurance
--- OUTSIDE RECORDS SUMMARY | 2025-02-05 19:00 | XMS_ITS | Clinical Summary ---
Author Organization Unknown Care Team Providers Care Dross Puller Name Role Phone ISIDRO JOSEPH Unavailable Unavailable NISH RN, SULY Unavailable Unavailable BROOKE HYPERBARIC TECHNOLOGIST, REMY Unavailable Unavailable COPIRMA SADE, VALERY Unavailable Unavailable GOSCHE OT, APPLE Unavailable Unavailable ANNE PT, CINTHYA Unavailable Unavailable FINN PT, JOHANNA Unavailable Unavailable SHERIF DECK SPECIALIST, SHA Unavailable Unavailabl juanjo GRANADOS RN, CHELI Unavailable Unavailabl juanjo SCHULTZ RN, EVERARDO Unavailable Unavailable BESSIE [address], OLIVA Unavailable Unavailable MARYANA HYPERBARIC TECHNOLOGIST, MALU Unavailable Unavailable VELOZ HYPERBARIC TECHNOLOGIST, LISSETH Unavailable Unavailabl e Payers Payer Name Policy Type Policy Number Effective Date Expira tion Date [facility] ([facility]) Problems Condition Name Condition Details Condition Category Status Onset Date Resolution Date Last Treatment Date Treating Clinician Comments COVID-19 Cqnadc0312-05-58 00:00:00HYPERTENSIVE HEART DISEASE WITH HEART FAILUREActive 2024-12-08 00:00: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 Ahodze2339-24-62 00:00:00MORBID (SEVERE) OBESITY DUE TO EXCESS CALORIESActive 2024-12-03 21:47:00TYPE 2 DIABETES MELLITUS WITH DIABETIC CATARACTActive 2024-12-03 21:47:00TYPE 2 DIABETES MELLITUS WITH DIABETIC NEUROPATHY, UNSPActive 2024-12-03 21:47:00CHRONIC OBSTRUCTIVE PULMONARY DISEASE W (ACUTE) EXACERBATION Iiitjz3600-69-47 00:00:00ACUTE RESPIRATORY FAILURE WITH VFEMGMNSpjwig0514-44-28 21:47:00UNSPECIFIED ADRENOCORTICAL VNGRKMUUHDLXCEojngt9208-78-45 21:47:00OTHER UPWXDMUJMVXXGIUIHgwrlc6372-14-68 21:47:00GENERALIZED ANXIETY DISORDERActive 2024-12-03 21:47:00TRIGEMINAL TEBIRQCDCZpjsgz4280-05-21 00:00:00OTHER CHRONIC TXQHWdjcwx8753-83-73 00:00:00INTERVERTEBRAL DISC DISORDERS W RADICULOPATHY, LUMBAR QNZPXDPmmapz7194-19-94 00:00:00SPINAL STENOSIS, CERVICAL REGIONActive 2024-12-09 00:00:00OTHER SPONDYLOSIS WITH RADICULOPATHY, LUMBOSACRAL REGION Bfsrmq5036-75-59 00:00:00OTHER SPONDYLOSIS WITH RADICULOPATHY, CERVICAL REGION Qmuril5351-66-37 00:00:00SPINAL STENOSIS, LUMBAR REGION WITH NEUROGENIC OPXHLHNRHOBFZiywjt8387-86-48 00:00:00HYPOTHYROIDISM, XLRFTGYSXDGZlnltt1627-49-45 00:00:00HYPERLIPIDEMIA, MTBKKCWAQYQRfwqff6622-09-48 00:00:00FIBROMYALGIAActive 2024-12-09 00:00:00POLYOSTEOARTHRITIS, XYTWTHDFLYNDhnlds5740-29-68 00:00:00 DEPENDENCE ON SUPPLEMENTAL IBULCSHcbwqp5284-87-37 00:00:00LONG TERM (CURRENT) USE OF QTSERCIEkgeus0889-89-49 00:00:00LONG TERM (CURRENT) USE OF SYSTEMIC FJIROCIBRdtfnm3276-77-08 00:00:00 Allergies, Adverse Reactions, Alerts Allergy Name Allergy Type Status Severity Reaction(s) Onset Date Inactive Date Treating Clinician Comments CEPHALEXIN. Propensity to adverse reactions Active 2024-12-09 16:15:39PEANUT CONTAINING DRUGPropensity to adverse reactionsActive 2024-12-09 16:16:03OXYCODONE-ACETAMINOPHENPropensity to adverse reactionsActive 2024-12-09 16:16:14 Medications Ordered Medication Name Filled Medication Name Start Date Stop Date Current Medication? Ordering Clinician Indication Dosage Frequency Signature (SIG) Comments Components acetaminophen 500 mg capsule 2024-12-09 00:00:[id number] capsuleEVERY 6 HOURS2 capsule EVERY 6 HOURS (route: oral)Med Classification: Analgesic, Anti-inflammatory or Antipyreticalbuterol sulfate HFA 90 mcg/actuation aerosol tttdeno1007-16-07 00:00:[id number] puff4 TIMES DAILY2 puff 4 TIMES DAILY (route: inhalation)Med Classification: Respiratory Therapy Agentsaspirin 81 mg tablet,delayed jakcneh1464-54-60 00:00:[id number] tabletDAILY1 tablet DAILY (route: oral)Med Classification: Hematological AgentsB Complex 1 (with folic acid) 0.4 mg maavwj0660-56-59 00:00:[id number] tabletDAILY1 tablet DAILY (route: oral)Med Classification: Electrolyte Balance- Nutritional ProductsColace 100 mg qwreair4704-30-43 00:00:[id number] CONSTIPATION1 capsuleDAILY1 capsule DAILY (route: oral)Med Classification: Gastrointestinal Therapy Agentsdiclofenac sodium 75 mg tablet,delayed release 2024-12-09 00:00:034572-64-05 13:56:[id number] tablet2 TIMES DAILY1 tablet 2 TIMES DAILY (route: oral)Med Classification: Analgesic, Anti- inflammatory or Antipyreticdicyclomine 20 mg frwbmb6163-04-05 00:00:00Yes [id number] tablet3 TIMES DAILY1 tablet 3 TIMES DAILY (route: oral)Med Classification: Gastrointestinal Therapy AgentsElderberry Immune Health 45 mg-4 mg-50 mg chewable rladta4282-78-32 00:00:[id number] tabletDAILY1 tablet DAILY (route: oral)Med Classification: Electrolyte Balance-Nutritional ProductsEntresto 49 mg-51 mg ptpebj0081-00-68 00:00:[id number] FAILURE 1 tablet2 TIMES DAILY1 tablet 2 TIMES DAILY (route: oral)Med Classification: Cardiovascular Therapy Agentsfurosemide 20 mg kspwov5234-18-63 00:00:00Yes [id number] RETENTION1 tabletDAILY1 tablet DAILY (route: oral)Med Classification: Cardiovascular Therapy Agentsgabapentin 600 mg bxnhkj7315-52-41 00:00:[id number] PAIN1.5 tablet3 TIMES DAILY1.5 tablet 3 TIMES DAILY (route: oral)Med Classification: Central Nervous System Agentshydrocortisone 10 mg jejegh1080-25-67 00:00:[id number] INSUFFICIENCY1 tablet2 TIMES DAILY1 tablet 2 TIMES DAILY (route: oral)Med Classification: Endocrine hydroxychloroquine 200 mg dnjoni4253-95-72 00:00:[id number] RASH1 tablet2 TIMES DAILY1 tablet 2 TIMES DAILY (route: oral)Med Classification: Anti- Infective Agentsipratropium 0.5 mg-albuterol 2.5 mg/2.5 mL solution for cnrtqvmzsqls6231-94-16 00:00:[id number] instructions4 TIMES DAILYPer instructions 4 TIMES DAILY (route: inhalation)Med Classification: Respiratory Therapy Agentslevothyroxine 175 mcg yfmdpa8033-28-47 00:00:00Yes [id number] tabletDAILY1 tablet DAILY (route: oral)Med Classification: Endocrineloratadine 10 mg zxtxml5770-46-67 00:00:[id number] tabletDAILY1 tablet DAILY (route: oral)Med Classification: Respiratory Therapy Agentslorazepam 0.5 mg kptfnf2899-25-50 00:00: 23:59:[id number] ANXIETY1 tabletEVERY 4 HOURS1 tablet EVERY 4 HOURS (route: oral)Med Classification: Central Nervous System Agentsmelatonin 10 mg ktjhmb0917-20-54 00:00:[id number] tabletBEDTIME0.5 tablet BEDTIME (route: oral)Med Classification: Central Nervous System Agentsmetoprolol succinate ER 50 mg tablet,extended release 24 tn9226-46-77 00:00:[id number] PRESSURE1 tabletDAILY1 tablet DAILY (route: oral)Med Classification: Cardiovascular Therapy AgentsOcean Blue [place]-3 Plus D3 350 mg-1,000 unit sjjybgo5809-57-96 00:00:[id number] capsuleDAILY1 capsule DAILY (route: oral)Med Classification: Cardiovascular Therapy Agentsomeprazole 40 mg capsule,delayed nbohzsz0694-36-62 00:00:[id number] capsuleDAILY1 capsule DAILY (route: oral)Med Classification: Gastrointestinal Therapy Agentspravastatin 20 mg aghhms9599-03-80 00:00:[id number] tabletDAILY1 tablet DAILY (route: oral)Med Classification: Cardiovascular Therapy Agentsprimidone 50 mg czxoar7257-62-67 00:00:[id number] tabletBEDTIME1 tablet BEDTIME (route: oral)Med Classification: Central Nervous System Agentstriamcinolone acetonide 0.1 % topical edlopneg1200-48-22 00:00:[id number] instructions2 TIMES DAILYPer instructions 2 TIMES DAILY (route: topical)Med Classification: DermatologicalVitamin D3 25 mcg (1,000 unit) rfrksmq6895-04-25 00:00:[id number] capsuleDAILY1 capsule DAILY (route: oral)Med Classification: Electrolyte Balance-Nutritional Productsoxygen gas for aetbpeofdr0226-46-38 00:00:[id number] BLOOD SATURATION1 LiterO2 - CONTINUOUS1 Liter O2 - CONTINUOUS (route: inhalation)Med Classification: Medical Supplies and Durable Medical Equipment (DME)escitalopram 10 mg euluwr1655-46-61 00:00:[id number] tabletDAILY1 tablet DAILY (route: oral)Med Classification: Central Nervous System Agentshydroxyzine HCl 25 mg tablet 2024-12-21 00:00:[id number] tabletEVERY 8 HOURS1 tablet EVERY 8 HOURS (route: oral)Med Classification: Central Nervous System Agents Immunizations Ordered Immunization Name Filled Immunization Name Date Status Comments Refusal Reason PNEUMOCOCCAL (PPV), PPV 2021-10-25 00:00:00 Vital Signs Vital Name Observation Time Observation Value Commen ts Temperature 2024-12-23 11:20:00.000 97.2 [degF] Wuhkqaxdycj5301-85-28 11:57:00.56303.6 [degF]Xyhghwshyma0593-68-89 11:26:00.000 97.4 [degF]Epvmvgwczhl4439-85-83 09:59:00.70084.6 [degF]Tszxkxkqozu7311-86-36 12:58:00.23877.3 [degF]Xchcjzemvyx3823-26-61 11:15:00.79217.2 [degF]Temperature 2024-12-15 12:26:00.39165 [degF]Skfoptunlgu1321-28-11 09:25:00.17980.6 [degF] Ttetpqdqghj1283-44-35 15:55:00.86452.6 [degF]Slvgsvcoloe9272-22-00 12:39:00.000 98.7 [degF]BMI (%)2024-12-09 11:04:00.96376 kg/t7Izqeow7381-17-57 11:04:00.64853 [in_us]Bleeo7306-02-94 11:20:00.74750 /canCbnpn4523-04-27 11:57:00.28099 /min Kvfxu0521-38-90 11:26:00.13914 /hpdJgpex0613-89-50 09:59:00.75917 /minPulse 2024-12-17 12:58:00.45948 /otbTatiu6181-35-91 11:15:00.38002 /dqvEjccg4372-64-48 12:26:00.12093 /ciqTumqn3262-24-44 09:25:00.30650 /ezoNtekp9565-15-60 15:55:00.54674 /hzbEuyzl2685-67-62 12:39:00.47564 /pmiRhrrh1189-81-89 11:04:00.88978 /minO2 Saturation (%)2024-12-23 11:20:00.53716 %O2 Saturation (%) 2024-12-21 11:57:00.85774 %O2 Saturation (%)2024-12-21 11:26:00.98387 %O2 Saturation (%)2024-12-21 09:59:00.15032 %O2 Saturation (%)2024-12-17 12:58:00.45711 %O2 Saturation (%)2024-12-17 11:15:00.96548 %O2 Saturation (%) 2024-12-15 12:26:00.72517 %O2 Saturation (%)2024-12-15 09:25:00.65811 %O2 Saturation (%)2024-12-14 15:55:00.38980 %O2 Saturation (%)2024-12-11 12:39:00.75072 %O2 Saturation (%)2024-12-09 11:04:00.78175 %Respirations 2024-12-23 11:20:00.26741 /ihvBtenholcqiwh4268-60-08 11:57:00.52510 /min Ppkjgzeexued0902-49-98 11:26:00.50336 /mrfCgykkikjyual4814-29-09 09:59:00.59826 /sfyEtqvcraxdqri4940-52-80 12:58:00.46181 /zgiGefllajezhqb6886-96-95 11:15:00.29308 /rxiVlwsrvyazyww0880-93-57 12:26:00.79888 /minRespirations 2024-12-15 09:25:00.21481 /rawHmtocyplhzzr6779-86-94 15:55:00.11491 /min Rbsothoqrjnp4258-63-91 12:39:00.43122 /dgeFsiqoolxgoxx4540-53-40 11:04:00.10083 /minWeight (lbs)2024-12-21 09:59:00.655710.2 [lb_av]Weight (lbs)2024-12-15 12:26:00.261294 [lb_av]Weight (lbs)2024-12-09 11:04:00.135777.1 [lb_av]Systolic Blood Uuromgnk3982-91-83 11:20:00.063661 mm[Hg]Systolic Blood Lodhghoc9032-66-21 11:57:00.745616 mm[Hg]Systolic Blood Ambmqhna4976-16-01 11:34:00.202566 mm[Hg] Systolic Blood Yrizksvj6308-24-36 09:59:00.040680 mm[Hg]Systolic Blood Pressure 2024-12-17 12:58:00.302042 mm[Hg]Systolic Blood Xraaduaw4332-40-65 11:15:00.000 136 mm[Hg]Systolic Blood Edcupvak2901-10-19 12:26:00.299929 mm[Hg]Systolic Blood Rzolziml5602-68-32 09:25:00.841613 mm[Hg]Systolic Blood Kchnkvrt1183-59-25 15:55:00.068759 mm[Hg]Systolic Blood Sgjqszzg9191-41-49 12:39:00.211834 mm[Hg] Systolic Blood Sauboeqo2650-34-94 11:04:00.964005 mm[Hg]Diastolic Blood Pressure 2024-12-23 11:20:00.84877 mm[Hg]Diastolic Blood Eiwuwexn6641-96-49 11:57:00.000 60 mm[Hg]Diastolic Blood Svrxinoo4020-10-31 11:34:00.58870 mm[Hg]Diastolic Blood Pigdixbj7535-44-88 09:59:00.18393 mm[Hg]Diastolic Blood Kjesrvwa1053-33-95 12:58:00.25638 mm[Hg]Diastolic Blood Cwttqauu7959-45-03 11:15:00.91178 mm[Hg] Diastolic Blood Lymkaant7179-85-20 12:26:00.70002 mm[Hg]Diastolic Blood Pressure 2024-12-15 09:25:00.66615 mm[Hg]Diastolic Blood Lmbxwwri5271-70-65 15:55:00.000 62 mm[Hg]Diastolic Blood Shickaqt2071-83-96 12:39:00.77015 mm[Hg]Diastolic Blood Dbaqmsup2492-87-79 11:04:00.00829 mm[Hg] Plan of Treatment Planned Activity Planned Date Details Comments Future Scheduled Test ALL CONSULTING/COVERING PHYSICIANS MAY SIGN/ISSUE ORDERS. DR MOSER [code = ALL CONSULTING/COVERING PHYSICIANS MAY SIGN/ISSUE ORDERS. DR MOSER]Future Scheduled TestSKILLED NURSE TO OBSERVE AND ASSESS RESPIRATORY SYSTEM TO IDENTIFY CHANGES AND INTERVENE TO MINIMIZE COMPLICATIONS. SKILLED NURSE TO PROVIDE SKILLED TEACHING RELATED TO ALTERED RESPIRATORY STATUS INCLUDING PATHOPHYSIOLOGY, NUTRITION, MEDICATION REGIMEN, AND PERMITTED ACTIVITIES RELATED TO COVID 19.MAY PERFORM O2 SATURATION LEVEL PRN FOR SIGNS AND/OR SYMPTOMS OF POSSIBLE RESPIRATORY COMPLICATIONS. [code = SKILLED NURSE TO OBSERVE AND ASSESS RESPIRATORY SYSTEM TO IDENTIFY CHANGES AND INTERVENE TO MINIMIZE COMPLICATIONS. SKILLED NURSE TO PROVIDE SKILLED TEACHING RELATED TO ALTERED RESPIRATORY STATUS INCLUDING PATHOPHYSIOLOGY, NUTRITION, MEDICATION REGIMEN, AND PERMITTED ACTIVITIES RELATED TO COVID 19. MAY PERFORM O2 SATURATION LEVEL PRN FOR SIGNS AND/OR SYMPTOMS OF POSSIBLE RESPIRATORY COMPLICATIONS.]Future Scheduled Test SKILLED NURSE TO REVIEW MEDICATION PROFILE AND RECONCILE MEDICATIONS NEEDED. SKILLED NURSE MAY INSTRUCT AND REINFORCE MEDICATION TEACHING RELATED TO USE OF MEDICATIONS TO TREAT DISEASE PROCESSES. [code = SKILLED NURSE TO REVIEW MEDICATION PROFILE AND RECONCILE MEDICATIONS NEEDED. SKILLED NURSE MAY INSTRUCT AND REINFORCE MEDICATION TEACHING RELATED TO USE OF MEDICATIONS TO TREAT DISEASE PROCESSES.]Future Scheduled TestSKILLED NURSE TO OBTAIN BLOOD SPECIMEN FOR CBC WITH DIFF AND BMP VIA VENIPUNCTURE ON 12/15/24. DIAGNOSIS: J44.1 COPD WITH EXACERBATION. FAX RESULTS TO [facility]. [code = SKILLED NURSE TO OBTAINBLOOD SPECIMEN FOR CBC WITH DIFF AND BMP VIA VENIPUNCTURE ON 12/15/24. DIAGNOSIS: J44.1 COPD WITH EXACERBATION. FAX RESULTS TO [facility].]Future Scheduled TestPHYSICAL THERAPIST TO EVALUATE/ASSESS AND DEVELOP PHYSICAL THERAPY PLAN OF CARE TO BE SIGNED BY THEPHYSICIAN. [code = PHYSICAL THERAPIST TO EVALUATE/ASSESS AND DEVELOP PHYSICAL THERAPY PLAN OF CARE TO BE SIGNED BY THE PHYSICIAN.]Future Scheduled TestOCCUPATIONAL THERAPIST TO EVALUATE/ASSESS AND DEVELOP OCCUPATIONAL THERAPY PLAN OF CARE TO BE SIGNED BY THE PHYSICIAN. [code = OCCUPATIONAL THERAPIST TO EVALUATE/ASSESS AND DEVELOP OCCUPATIONAL THERAPY PLAN OF CARE TO BE SIGNED BY THE PHYSICIAN.]Future Scheduled TestSKILLED NURSE TO EVALUATE AND DEVELOP PLAN OF CARE TO BE COUNTERSIGNED BY PHYSICIAN. SKILLED NURSE TO ASSESS/EVALUATE COVID 19 AND CO- MORBID CONDITIONS INCLUDING CHF, RESPIRATORY FAILURE AND OTHER CONDITIONS THAT PRESENT THEMSELVES DURING THE COURSE OF THIS EPISODE TO IDENTIFY CHANGES AND INTERVENETO MINIMIZE COMPLICATIONS. [code = SKILLED NURSE TO EVALUATE AND DEVELOP PLAN OF CARE TO BE COUNTERSIGNED BY PHYSICIAN. SKILLED NURSE TO ASSESS/EVALUATE COVID 19 AND CO-MORBID CONDITIONS INCLUDING CHF, RESPIRATORY FAILURE AND OTHER CONDITIONS THAT PRESENT THEMSELVES DURING THE COURSE OF THIS EPISODE TO IDENTIFY CHANGES AND INTERVENE TO MINIMIZE COMPLICATIONS.]Future Scheduled TestSKILLED NURSE TO PROVIDE MONITORING FOR THE PRESENCE OF SKIN LESIONS ON THE LOWER EXTREMITIES AND TEACHING/REINFORCEMENT REGARDING PROPER DIABETIC FOOT CARE. [code = SKILLED NURSE TO PROVIDE MONITORING FOR THE PRESENCE OF SKIN LESIONS ON THE LOWER EXTREMITIES AND TEACHING/REINFORCEMENT REGARDING PROPER DIABETIC FOOT CARE.]Future Scheduled TestSKILLED NURSE TO PROVIDE INSTRUCTIONS RELATED TO MANAGEMENT OF CONGESTIVE HEART FAILURE INCLUDING, BUT NOT LIMITED TO, DEFINITION, RISKS FACTORS, MEASURES TO PREVENT EXACERBATION, SIGNS/SYMPTOMS, ANDPOTENTIAL COMPLICATIONS. SKILLED NURSE TO NOTIFY PHYSICIAN IF PATIENT GAINS MORE THAN 3 LBS/24 HOURS OR 5 LBS/WEEK. [code = SKILLED NURSE TO PROVIDE INSTRUCTIONS RELATED TO MANAGEMENT OF CONGESTIVE HEART FAILURE INCLUDING, BUT NOT LIMITED TO, DEFINITION, RISKS FACTORS, MEASURES TO PREVENT EXACERBATION, SIGNS/SYMPTOMS, AND POTENTIAL COMPLICATIONS. SKILLED NURSE TO NOTIFY PHYSICIAN IF PATIENT GAINS MORE THAN 3 LBS/24 HOURS OR 5 LBS/WEEK.]Future Scheduled TestSKILLED NURSE TO INSTRUCT REGARDING OXYGEN MANAGEMENT INCLUDING ADMINISTRATION, CARE OF EQUIPMENT AND SAFETY. [code = SKILLED NURSE TO INSTRUCT REGARDING OXYGEN MANAGEMENT INCLUDING ADMINISTRATION, CARE OF EQUIPMENT AND SAFETY.]Future Scheduled TestSKILLED NURSE TO PROVIDE AND INSTRUCT REGARDING FALL PREVENTION INTERVENTIONS. [code = SKILLED NURSE TO PROVIDE AND INSTRUCT REGARDING FALL PREVENTION INTERVENTIONS.]Future Scheduled TestSKILLED NURSE TO MONITOR PLAN FOR CURRENT TREATMENT OF DEPRESSION SUCH EFFECTS OF MEDICATION AND/OR NEED FOR REFERRAL FOR OTHER TREATMENT. [code = SKILLED NURSE TO MONITOR PLAN FOR CURRENT TREATMENT OF DEPRESSION SUCH EFFECTS OF MEDICATION AND/OR NEED FOR REFERRAL FOR OTHER TREATMENT.]Future Scheduled TestSKILLED NURSE TO PROVIDE/INSTRUCT REGARDING INTERVENTION(S) TO MONITOR AND MITIGATE PAIN. [code = SKILLED NURSE TO PROVIDE/INSTRUCT REGARDING INTERVENTION(S) TO MONITOR AND MITIGATE PAIN.]Future Scheduled TestSKILLED NURSE TO INSTRUCT ON ADMINISTRATION OF INHALATION THERAPY PER NEBULIZER. INSTRUCT PATIENT/CAREGIVER INDICATED. [code = SKILLED NURSE TO INSTRUCT ON ADMINISTRATION OF INHALATION THERAPY PER NEBULIZER. INSTRUCT PATIENT/CAREGIVER INDICATED.]Future Scheduled Test DISCHARGE HOME HEALTH SERVICES WHEN GOALS ARE MET OR SKILLED CARE NO LONGER REQUIRED. [code = DISCHARGE HOME HEALTH SERVICES WHEN GOALS ARE MET OR SKILLED CARE NO LONGER REQUIRED.]Future Scheduled TestPATIENT IS AT RISK FOR HOSPITALIZATION OR EMERGENCY DEPARTMENT USE DUE TO SHORTNESS OF BREATH. TEACH PATIENT/CAREGIVER TO ?CALL US FIRST? . INFORM ON WHO AND WHEN TO CALL FOR SYMPTOMS BASED ON ZONE TOOLS. INSTRUCT ON MITIGATION OF IDENTIFIED HOSPITAL OR EMERGENCY DEPARTMENT RISK FACTORS. [code = PATIENT IS AT RISK FOR HOSPITALIZATION OR EMERGENCY DEPARTMENT USE DUE TO SHORTNESS OF BREATH. TEACH PATIENT/CAREGIVER TO ?CALL US FIRST? . INFORM ON WHO AND WHEN TO CALL FOR SYMPTOMS BASED ON ZONE TOOLS. INSTRUCT ON MITIGATION OF IDENTIFIED HOSPITAL OR EMERGENCY DEPARTMENT RISK FACTORS.]Future Scheduled TestSKILLED NURSE MAY PERFORM 3 PRN VISITS FOR INCREASED SHORTNESS OF BREATH [code = SKILLED NURSE MAY PERFORM 3 PRN VISITS FOR INCREASED SHORTNESS OF BREATH]Future Scheduled Test SKILLED NURSE FOR OASIS DATA COLLECTION/COMPREHENSIVE ASSESSMENT TO DETERMINE SKILLED NEED. THIS MAY INCLUDE RESUMPTION OF CARE ASSESSMENT (ESTEPHANIE) TO DETERMINE SKILLED NEED FOLLOWING INPATIENT DISCHARGE SHOULD PATIENT TRANSFER AND ADMIT TO AN INPATIENT FACILITY DURING CURRENT 60-DAY CERTIFICATION PERIOD. ADDITIONAL VISITS MAY BE REQUIRED FOR RECERT, FOLLOW UP, SIGNIFICANT CHANGE IN CONDITION (SCIC)AND DISCHARGE. HOME HEALTH FLOAT REMOVER MAY PROVIDE CARE RECOMMENDATIONS NEEDED ON NEW,EXISTING OR CHANGED WOUND OR INTEGUMENTARY CONDITIONS. [code = SKILLED NURSE FOR OASIS DATA COLLECTION/COMPREHENSIVE ASSESSMENT TO DETERMINE SKILLED NEED. THIS MAY INCLUDE RESUMPTION OF CARE ASSESSMENT (ESTEPHANIE) TO DETERMINE SKILLED NEED FOLLOWING INPATIENT DISCHARGE SHOULD PATIENT TRANSFER AND ADMIT TO AN INPATIENT FACILITY DURING CURRENT 60-DAY CERTIFICATION PERIOD. ADDITIONAL VISITS MAY BE REQUIRED FOR RECERT, FOLLOW UP, SIGNIFICANT CHANGE IN CONDITION (SCIC) AND DISCHARGE. HOME HEALTH FLOAT REMOVER MAY PROVIDE CARE RECOMMENDATIONS NEEDED ON NEW, EXISTING OR CHANGED WOUND OR INTEGUMENTARY CONDITIONS.]Future Scheduled TestOCCUPATIONAL THERAPIST OR SKILLED NURSE FOR OASIS DATA COLLECTION/COMPREHENSIVE ASSESSMENT TO DETERMINE SKILLED NEED. THIS MAY INCLUDE RESUMPTION OF CARE ASSESSMENT (ESTEPHANIE) TO DETERMINE SKILLED NEED FOLLOWING INPATIENT DISCHARGE SHOULD PATIENT TRANSFER AND ADMIT TO AN INPATIENT FACILITY DURING CURRENT 60-DAY CERTIFICATION PERIOD. ADDITIONAL VISITS MAY BE REQUIRED FOR RECERT, FOLLOW UP, SIGNIFICANT CHANGE IN CONDITION (SCIC) AND DISCHARGE. OCCUPATIONAL THERAPIST TO PROVIDE INSTRUCTIONS REGARDING MEASURES TO CONTROL CONSTIPATION. OCCUPATIONAL THERAPIST TO EVALUATE PATIENT FOR OT SERVICES AND DEVELOP PLAN OF CARE PLAN OF CARE TO BE SIGNED BY THE PHYSICIAN. OCCUPATIONAL THERAPY TO ESTABLISH/UPGRADE HOME EXERCISE PROGRAM AND PROVIDE THERAPEUTIC EXERCISES AND/OR SOFT TISSUE/JOINT MOBILIZATION DESIGNED TO RESTORE FUNCTIONAL STRENGTH AND ROM. OCCUPATIONAL THERAPIST TO OBSERVE AND ASSESS RESPIRATORY SYSTEM TO IDENTIFY CHANGES AND INTERVENE TO MINIMIZE COMPLICATIONS. OCCUPATIONAL THERAPIST TO PROVIDE TEACHING RELATED TO ALTERED RESPIRATORY STATUS INCLUDING PATHOPHYSIOLOGY, AND PERMITTED ACTIVITIES RELATED TO COVID. MAY PERFORM O2 SATURATION LEVEL PRN FOR SIGNS AND SYMPTOMS OF POSSIBLE RESPIRATORY COMPLICATIONS. OCCUPATIONAL THERAPY TO INSTRUCT IN SAFE TRANSFERS USING APPROPRIATE BODY MECHANICS AND EQUIPMENT. OCCUPATIONAL THERAPY TO EVALUATE FUNCTIONAL MOBILITY/AMBULATION AND PROVIDE TRAINING USING APPROPRIATE ASSISTIVE DEVICES TO ENSURE PATIENT SAFETY OCCUPATIONAL THERAPIST TO EDUCATE PATIENT / CAREGIVER ON SAFETY RECOMMENDATIONS FOR HOME ENVIRONMENT, TO REDUCE FALL RISK. OCCUPATIONALTHERAPIST TO PROVIDE PATIENT / CAREGIVER WITH ADL TRAINING TO INCREASE INDEPENDENCE. OCCUPATIONAL THERAPIST TO PROVIDE PATIENT / CAREGIVER WITH IADL TRAINING TO INCREASE INDEPENDENCE. OCCUPATIONAL THERAPY TO PROVIDE INSTRUCTION IN ENERGY CONSERVATION TECHNIQUES DESIGNED TO MAXIMIZE PATIENT'S TOLERANCE DURING ADL'S/IADL'S. ALL CONSULTING/COVERING PHYSICIANS MAY SIGN AND ISSUE ORDERS. OCCUPATIONAL THERAPY TO PROVIDE BALANCE TRAINING TO REDUCE FALL RISK DURING FUNCTIONAL ACTIVITIES. OCCUPATIONAL THERAPY TO PROVIDE MONITORING FOR THE PRESENCE OF SKIN LESIONS ON THE LOWER EXTREMITIES AND TEACHING/R EINFORCEMENT REGARDING PROPER DIABETIC FOOT CARE. OCCUPATIONAL THERAPIST TO PROVIDE AND INSTRUCT REGARDING FALL PREVENTION INTERVENTIONS. OCCUPATIONAL THERAPIST TO PROVIDE/INSTRUCT REGARDING INTERVENTION(S) TO MONITOR AND MITIGATE PAIN. OCCUPATIONAL THERAPIST TO INSTRUCT REGARDING OXYGEN MANAGEMENTINCLUDING ADMINISTRATION, CARE OF EQUIPMENT AND SAFETY. DISCHARGE HOME HEALTH SERVICES WHEN GOALS ARE MET OR SKILLED CARE NO LONGER REQUIRED. PATIENT IS AT RISK FOR HOSPITALIZATION OR EMERGENCY DEPARTMENT USE DUE TO SOB. TEACH PATIENT/CAREGIVER TO ?CALL US FIRST? . INFORM ON WHO AND WHEN TO CALL FOR SYMPTOMS BASED ON ZONE TOOLS. INSTRUCT ON MITIGATION OF IDENTIFIED HOSPITAL OR EMERGENCY D EPARTMENT RISK FACTORS. OCCUPATIONAL THERAPIST TO REVIEW MEDICATION PROFILE AND RECONCILE MEDICATIONS NEEDED. OCCUPATIONAL THERAPIST MAY INSTRUCT AND REINFORCE MEDICATION TEACHING RELATED TO USE OF MEDICATIONS TO TREAT DISEASE PROCESSES. OCCUPATIONAL THERAPIST TO MONITOR PLAN FOR CURRENT TREATMENT OF DEPRESSION SUCH EFFECTS OF MEDICATION AND/OR NEED FOR REFERRAL FOR OTHER TREATMENT [code = OCCUPATIONAL THERAPIST OR SKILLED NURSE FOR OASIS DATA COLLECTION/COMPREHENSIVE ASSESSMENT TO DETERMINE SKILLED NEED. THIS MAY INCLUDE RESUMPTION OF CARE ASSESSMENT (ESTEPHANIE) TO DETERMINE SKILLED NEED FOLLOWING INPATIENT DISCHARGE SHOULD PATIENT TRANSFER AND ADMIT TO AN INPATIENT FACILITY DURING [id number] CERTIFICATION PERIOD. ADDITIONAL VISITS MAY BE REQUIRED FOR RECERT, FOLLOW UP, SIGNIFICANT CHANGE IN CONDITION (SCIC) AND DISCHARGE. OCCUPATIONAL THERAPIST TO PROVIDE INSTRUCTIONS REGARDING MEASURES TO CONTROL CONSTIPATION. OCCUPATIONAL THERAPIST TO EVALUATE PATIENT FOR OT SERVICES AND DEVELOP PLAN OF CARE PLAN OF CARE TO BE SIGNED BY THE PHYSICIAN. OCCUPATIONAL THERAPY TO ESTABLISH/UPGRADE HOME EXERCISE PROGRAM AND PROVIDE THERAPEUTIC EXERCISES AND/OR SOFT TISSUE/JOINT MOBILIZATION DESIGNED TO RESTORE FUNCTIONAL STRENGTH AND ROM. OCCUPATIONAL THERAPIST TO OBSERVE AND ASSESS RESPIRATORY SYSTEM TO IDENTIFY CHANGES AND INTERVENE TO MINIMIZE COMPLICATIONS. OCCUPATIONAL THERAPIST TO PROVIDE TEACHING RELATED TO ALTERED RESPIRATORY STATUS INCLUDING PATHOPHYSIOLOGY, AND PERMITTED ACTIVITIES RELATED TO COVID. MAY PERFORM O2 SATURATION LEVEL PRN FOR SIGNS AND SYMPTOMS OF POSSIBLE RESPIRATORY COMPLICATIONS. OCCUPATIONAL THERAPY TO INSTRUCT IN SAFE TRANSFERS USING APPROPRIATE BODY MECHANICS AND EQUIPMENT. OCCUPATIONAL THERAPY TO EVALUATE FUNCTIONAL MOBILITY/AMBULATION AND PROVIDE TRAINING USING APPROPRIATE ASSISTIVE DEVICES TO ENSURE PATIENT SAFETY OCCUPATIONAL THERAPIST TO EDUCATE PATIENT / CAREGIVER ON SAFETY RECOMMENDATIONS FOR HOME ENVIRONMENT, TO REDUCE FALL RISK. OCCUPATIONAL THERAPIST TO PROVIDE PATIENT / CAREGIVER WITH ADL TRAINING TO INCREASE INDEPENDENCE. OCCUPATIONAL THERAPIST TO PROVIDE PATIENT / CAREGIVER WITH IADL TRAINING TO INCREASE INDEPENDENCE. OCCUPATIONAL THERAPY TO PROVIDE INSTRUCTION IN ENERGY CONSERVATION TECHNIQUES DESIGNED TO MAXIMIZE PATIENT'S TOLERANCE DURING ADL'S/IADL'S. ALL CONSULTING/COVERING PHYSICIANS MAY SIGN AND ISSUE ORDERS. OCCUPATIONAL THERAPY TO PROVIDE BALANCE TRAINING TO REDUCE FALL RISK DURING FUNCTIONAL ACTIVITIES. OCCUPATIONAL THERAPY TO PROVIDE MONITORING FOR THE PRESENCE OF SKIN LESIONS ON THE LOWER EXTREMITIES AND TEACHING/RE INFORCEMENT REGARDING PROPER DIABETIC FOOT CARE. OCCUPATIONAL THERAPIST TO PROVIDE AND INSTRUCT REGARDING FALL PREVENTION INTERVENTIONS. OCCUPATIONAL THERAPIST TO PROVIDE/INSTRUCT REGARDING INTERVENTION(S) TO MONITOR AND MITIGATE PAIN. OCCUPATIONAL THERAPIST TO INSTRUCT REGARDING OXYGEN MANAGEMENT INCLUDING ADMINISTRATION, CARE OF EQUIPMENT AND SAFETY. DISCHARGE HOME HEALTH SERVICES WHEN GOALS ARE MET OR SKILLED CARE NO LONGER REQUIRED. PATIENT IS AT RISK FOR HOSPITALIZATION OR EMERGENCY DEPARTMENT USE DUE TO SOB. TEACH PATIENT/CAREGIVER TO ?CALL US FIRST? . INFORM ON WHO AND WHEN TOCALL FOR SYMPTOMS BASED ON ZONE TOOLS. INSTRUCT ON MITIGATION OF IDENTIFIED HOSPITAL OR EMERGENCY DE PARTMENT RISK FACTORS. OCCUPATIONAL THERAPIST TO REVIEW MEDICATION PROFILE AND RECONCILE MEDICATIONS NEEDED. OCCUPATIONAL THERAPIST MAY INSTRUCT AND REINFORCE MEDICATION TEACHING RELATED TO USE OFMEDICATIONS TO TREAT DISEASE PROCESSES. OCCUPATIONAL THERAPIST TO MONITOR PLAN FOR CURRENT TREATMENT OF DEPRESSION SUCH EFFECTS OF MEDICATION AND/OR NEED FOR REFERRAL FOR OTHER TREATMENT]GoalPatient Goal - TO GET OFF OXYGENGoalProvider Goal -GoalProvider Goal - RESPIRATORY EXACERBATIONS WILL BE IDENTIFIED PROMPTLY AND INTERVENTIONS INITIATED TO MINIMIZE ASSOCIATED RISKS. PATIENT/CAREGIVER WILL VERBALIZE/DEMONSTRATE AN ABILITY TO MANAGE RESPIRATORY DISEASE EVIDENCED BY IMPROVED ENDURANCE, DECREASED SHORTNESS OF BREATH, NORMAL O2 SATURATION LEVELS AND NO UNPLANNED HOSPITALIZATIONS, BY 12/24/24. ABNORMAL O2 SATURATION LEVELS WILL BE REPORTED TO PHYSICIAN.GoalProvider Goal - PATIENT WILL DEMONSTRATE COMPLIANCE WITH MEDICATIONS PRESCRIBED. PATIENT/CAREGIVER WILL VERBALIZE/DEMONSTRATE UNDERSTANDING OF MEDICATION SCHEDULE, PURPOSE, SIDE EFFECTS AND AND ANY SPECIAL PRECAUTIONS RELATED TO MEDICATION REGIMEN BY 01/14/25.GoalProvider Goal - PATIENT/CAREGIVER WILL VERBALIZE UNDERSTANDING OF PURPOSE OF VENIPUNCTURE AND LAB RESULTS WILL BE REPORTED TO PHYSICIAN.Goal Provider Goal - PHYSICAL THERAPIST TO EVALUATE/ASSESS AND DEVELOP PHYSICAL THERAPY PLAN OF CARE TO BE SIGNED BY THE PHYSICIAN.GoalProvider Goal - OCCUPATIONAL THERAPY PLAN OF CARE WILL BE ORDERED BY PHYSICIAN AND PROVIDED BY OCCUPATIONAL THERAPY. ALL GOALS TO BE MET BY END OF CURRENTLY APPROVED PLAN OF CARE.GoalProvider Goal - A PLAN OF CARE WILL BE ESTABLISHED THAT MEETS THE PATIENT'S NURSING NEEDS AND COUNTERSIGNED BY PHYSICIAN.GoalProvider Goal - CHANGES IN PATIENT CO-MORBID STATUS WILL BE PROMPTLY IDENTIFIED AND REPORTED TO THEPHYSICIAN. PATIENT/CAREGIVER VERBALIZE/DEMONSTRATE ABILITY TO PROPERLY MANAGE DIABETIC FOOT CARE BY01/19/25.GoalProvider Goal - PATIENT/CAREGIVER WILL UNDERSTAND AND DEMONSTRATE COMPLIANCE WITH MANAGEMENT OF CHF, EVIDENCED BY IMPROVED ENDURANCE, DECREASED SHORTNESS OF BREATH, STABILIZED WEIGHT AND NO UNPLANNED HOSPITALIZATIONS, BY 02/06/25.GoalProvider Goal - PATIENT/CAREGIVER WILL DEMONSTRATE ABILITY TO SAFELY MANAGE OXYGEN THERAPY IN THE HOME SETTING BY 12/25/24.GoalProvider Goal - CHANGES IN PATIENT CO-MORBID STATUS WILL BE PROMPTLY IDENTIFIED AND REPORTED TO THEPHYSICIAN. PATIENT/CAREGIVER VERBALIZE/DEMONSTRATE MEASURES TO PREVENT FALLS BY 01/24/25.GoalProvider Goal - CHANGES IN PATIENT CO-MORBID STATUS WILL BE PROMPTLY IDENTIFIED AND REPORTED TO THEPHYSICIAN. PATIENT/CAREGIVER VERBALIZE/DEMONSTRATE ABILITY TO PROPERLY MANAGE DEPRESSION BY 01/09/25.GoalProvider Goal - CHANGES IN PATIENT CO-MORBID STATUS WILL BE PROMPTLY IDENTIFIED AND REPORTED TO THEPHYSICIAN. PATIENT/CAREGIVER VERBALIZE/DEMONSTRATE ABILITY TO PROPERLY MANAGE PAIN BY 01/14/25.GoalProvider Goal - PATIENT/CAREGIVER WILL DEMONSTRATE INDEPENDENCE IN ADMINISTRATION OF NEBULIZER THERAPY AND CARE FOR EQUIPMENT A RESULT OF SKILLED TEACHING BY 01/09/25.GoalProvider Goal -GoalProvider Goal - PATIENT/CAREGIVER WILL VERBALIZE/DEMONSTRATE UNDERSTANDING OF SYMPTOM MANAGEMENT, RESOURCE UTILIZATION, AND MEDICATION MANAGEMENT TO REDUCE UNPLANNED HOSPITAL OR EMERGENCY DEPARTMENT V ISITS BY 02/05/25.GoalProvider Goal -GoalProvider Goal -GoalProvider Goal - PATIENT/CAREGIVER WILL VERBALIZE BOWEL PROGRAM STEPS TO PREVENT CONSTIPATION COMPLICATIONS BY 01/09/25. PATIENT WILL HAVE A REGULAR BM EVERY 2-3 DAYS. OCCUPATIONAL THERAPY EVALUATION WILL BE COMPLETED. PLAN OF CARE WILL BE ORDERED BY PHYSICIAN AND PROVIDED BY OCCUPATIONAL THERAPIST.ALL GOALS TO BE MET BY END OF CURRENTLY APPROVED PLAN OF CARE. PATIENT WILL DEMONSTRATE IMPROVED FUNCTION IN RESPONSE TO BUE EXERCISE(S) AND/OR MANUAL THERAPY TECHNIQUE(S), EVIDENCED BY INCREASED INDEPENDENCE IN ACTIVITIES OF DAILY LIVING BY 02/06/25. RESPIRATORY EXACERBATIONS WILL BE IDENTIFIED PROMPTLY AND INTERVENTIONS INITIATED TO MINIMIZE ASSOCIATED RISKS. PATIENT/CAREGIVER WILL VERBALIZE /DEMONSTRATE ABILITY TO MANAGE RESPIRATORY DISEASE EVIDENCED BY IMPROVED ENDURANCE, DECREASED SHORTNESS OF BREATH, NORMAL O2 SATURATION LEVELS AND NO UNPLANNED HOSPITALIZATIONS BY 01/09/25. ABNORMAL O2 SATURATIONS WILL BE REPORTED TO PHYSICIAN. PATIENT/CAREGIVER WILL DEMONSTRATE SAFE TRANSFERS USING APPROPRIATE BODY MECHANICS AND APPROPRIATE EQUIPMENT (ROLLING WALKER, BATHROOM DME) BY 02/06/25. PATIENT WILL DEMONSTRATE USE OF SAFETY PRECAUTIONS AND IMPROVED FUNCTIONAL MOBILITY/AMBULATION WITH USE OF ASSISTIVE DEVICE NEEDED TO MINIMIZE RISK OF INJURY BY 02/06/25. PATIENT / CAREGIVER TO DEMONSTRATE INCREASED SAFETY IN HOME ENVIRONMENT EVIDENCED BY DECREASED FALL RISK BY 02/06/25. PATIENT WILL DEMONSTRATE INCREASED INDEPENDENCE IN ACTIVITIES OF DAILY LIVING BY 02/06/25. PATIENT WILLDEMONSTRATE INCREASED INDEPENDENCE IN IADL'S BY 02/06/25. PATIENT / CAREGIVER TO DEMONSTRATE UNDERSTANDING OF AND COMPLIANCE WITH ENERGY CONSERVATION MEASURES, EVIDENCED BY INCREASED TOLERANCE DURING ADL'S/IADL'S BY 02/06/25. ADDITIONAL ORDERS WILL BE RECEIVED FROM ALTERNATE PHYSICIAN IN A TIMELY MANNER. PATIENT / CAREGIVER TO DEMONSTRATE DECREASED FALL RISK DURING FUNCTIONAL ACTIVITIES BY 02/06/25. CHANGES IN PATIENT CO-MORBID STATUS WILL BE PROMPTLY IDENTIFIED AND REPORTED TO THE PHYSICIAN. PATIENT/CAREGIVER VERBALIZE/DEMONSTRATE ABILITY TO PROPERLY MANAGE DIABETIC FOOT CARE BY 01/09/25.CHANGES IN PATIENT CO-MORBID STATUS WILL BE PROMPTLY IDENTIFIED AND REPORTED TO THE PHYSICIAN. PATIENT/CAREGIVER VERBALIZE/DEMONSTRATE MEASURES TO PREVENT FALLS BY 01/09/25. CHANGES IN PATIENT CO-MORBID STATUS WILL BE PROMPTLY IDENTIFIED AND REPORTED TO THE PHYSICIAN. PATIENT/CAREGIVER VERBALIZE/DEMONSTRATE ABILITY TO PROPERLY MANAGE PAIN BY 01/09/25. PATIENT/CAREGIVER WILL DEMONSTRATE ABILITY TOSAFELY MANAGE OXYGEN THERAPY IN THE HOME SETTING BY 01/09/25. PATIENT/CAREGIVER WILL VERBALIZE/DEMONSTRATE UNDERSTANDING OF SYMPTOM MANAGEMENT, RESOURCE UTILIZATION, AND MEDICATION MANAGEMENT TO REDUCE UNPLANNED HOSPITAL OR EMERGENCY DEPARTMENT VISITS BY 01/09/25. PATIENT WILL DEMONSTRATE COMPLIANCE WITH MEDICATIONS PRESCRIBED. PATIENT/CAREGIVER WILL VERBALIZE/DEMONSTRATE UNDERSTANDING OF MEDICATION SCHEDULE, PURPOSE, SIDE EFFECTS, AND ANY SPECIAL PRECAUTIONS RELATED TO MEDICATION REGIMEN BY01/09/25. CHANGES IN PATIENT CO-MORBID STATUS WILL BE PROMPTLY IDENTIFIED AND REPORTED TO THE PHYSICIAN. PATIENT/CAREGIVER VERBALIZE/DEMONSTRATE ABILITY TO PROPERLY MANAGE DEPRESSION BY 01/07/2025 Encounters Start Date/Time End Date/Time Encounter Type Admission Type Attending [facility] Care Department Encounter ID Discharge Date Discharge Status Discharge Condition Discharge Reason Percent Goals Met 2024-12-09 00:00:00 2025-02-06 00:00:00 Outpatient CHELI BOUCHER [id number]
--- OUTSIDE RECORDS SUMMARY | 2025-02-05 19:00 | XMS_ITS | Clinical Summary ---
Author Organization Unknown Care Team Providers Care Body Mechanic Apprentice Name Role Phone ISIDRO JOSEPH Unavailable Unavailable NISH RN, SULY Unavailable Unavailable BROOKE RIDE OPERATOR, REMY Unavailable Unavailable COPIRMA SADE, VALERY Unavailable Unavailable GOSCHE OT, APPLE Unavailable Unavailable ANNE PT, CINTHYA Unavailable Unavailable FINN PT, JOHANNA Unavailable Unavailable SHERIF SAP BASIS, SHA Unavailable Unavailabl juanjo GRANADOS RN, CHELI Unavailable Unavailabl juanjo SCHULTZ RN, EVERARDO Unavailable Unavailable BESSIE STRE[address], OLIVA Unavailable Unavailable MARYANA RIDE OPERATOR, MALU Unavailable Unavailable VELOZ RIDE OPERATOR, LISSETH Unavailable Unavailabl e Payers Payer Name Policy Type Policy Number Effective Date Expira tion Date [facility] [employer] [facility] ([facility]) Problems Condition Name Condition Details Condition Category Status Onset Date Resolution Date Last Treatment Date Treating Clinician Comments COVID-19 Fajxad7391-55-06 00:00:00HYPERTENSIVE HEART DISEASE WITH HEART FAILUREActive 2024-12-08 00:00: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 Fskvwy1140-69-76 00:00:00MORBID (SEVERE) OBESITY DUE TO EXCESS CALORIESActive 2024-12-03 21:47:00TYPE 2 DIABETES MELLITUS WITH DIABETIC CATARACTActive 2024-12-03 21:47:00TYPE 2 DIABETES MELLITUS WITH DIABETIC NEUROPATHY, UNSPActive 2024-12-03 21:47:00CHRONIC OBSTRUCTIVE PULMONARY DISEASE W (ACUTE) EXACERBATION Mlffph8791-60-35 00:00:00ACUTE RESPIRATORY FAILURE WITH DRFKBFJFkavle2443-72-05 21:47:00UNSPECIFIED ADRENOCORTICAL DTFUUHCIUNIIARkrajo2374-34-33 21:47:00OTHER WSTQBWSPJESTQECMGaeuif9902-09-22 21:47:00GENERALIZED ANXIETY DISORDERActive 2024-12-03 21:47:00TRIGEMINAL OUJPUXGUUQkkifj3676-95-01 00:00:00OTHER CHRONIC BSFJLgxdrn4320-39-37 00:00:00INTERVERTEBRAL DISC DISORDERS W RADICULOPATHY, LUMBAR LDOBKANogvws5657-35-60 00:00:00SPINAL STENOSIS, CERVICAL REGIONActive 2024-12-09 00:00:00OTHER SPONDYLOSIS WITH RADICULOPATHY, LUMBOSACRAL REGION Ocqfup5282-67-31 00:00:00OTHER SPONDYLOSIS WITH RADICULOPATHY, CERVICAL REGION Loesqr0298-09-92 00:00:00SPINAL STENOSIS, LUMBAR REGION WITH NEUROGENIC HWRSNINUYHBJMmjqmk7916-59-63 00:00:00HYPOTHYROIDISM, IITTABDFHECPcsbqh6420-01-99 00:00:00HYPERLIPIDEMIA, WGNPYJKJBLDEcgzkp8745-58-30 00:00:00FIBROMYALGIAActive 2024-12-09 00:00:00POLYOSTEOARTHRITIS, QVNAGLLTYRDYtivft3637-52-11 00:00:00 DEPENDENCE ON SUPPLEMENTAL DLENTAHlfrmw8552-20-77 00:00:00LONG TERM (CURRENT) USE OF WDYPRLUItnzot8951-62-72 00:00:00LONG TERM (CURRENT) USE OF SYSTEMIC VBSHDXLPRluwsk0898-77-76 00:00:00 Allergies, Adverse Reactions, Alerts Allergy Name [...] Comments Components acetaminophen 500 mg capsule 2024-12-09 00:00:[id number] capsuleEVERY 6 HOURS2 capsule EVERY 6 HOURS (route: oral)Med Classification: Analgesic, Anti-inflammatory or Antipyreticalbuterol sulfate HFA 90 mcg/actuation aerosol usqyfbu1408-46-40 00:00:[id number] puff4 TIMES DAILY2 puff 4 TIMES DAILY (route: inhalation)Med Classification: Respiratory Therapy Agentsaspirin 81 mg tablet,delayed tkjrhik0401-74-14 00:00:[id number] tabletDAILY1 tablet DAILY (route: oral)Med Classification: Hematological AgentsB Complex 1 (with folic acid) 0.4 mg cepztx3504-60-46 00:00:[id number] tabletDAILY1 tablet DAILY (route: oral)Med Classification: Electrolyte Balance- Nutritional ProductsColace 100 mg joktzaf4041-35-89 00:00:[id number] CONSTIPATION1 capsuleDAILY1 capsule DAILY (route: oral)Med Classification: Gastrointestinal Therapy Agentsdiclofenac sodium 75 mg tablet,delayed release 2024-12-09 00:00:911396-19-79 13:56:[id number] tablet2 TIMES DAILY1 tablet 2 TIMES DAILY (route: oral)Med Classification: Analgesic, Anti- inflammatory or Antipyreticdicyclomine 20 mg uydthk7793-17-86 00:00:00Yes [id number] tablet3 TIMES DAILY1 tablet 3 TIMES DAILY (route: oral)Med Classification: Gastrointestinal Therapy AgentsElderberry Immune Health 45 mg-4 mg-50 mg chewable aduwyd3839-30-99 00:00:[id number] tabletDAILY1 tablet DAILY (route: oral)Med Classification: Electrolyte Balance-Nutritional ProductsEntresto 49 mg-51 mg ijucqy8177-65-89 00:00:[id number] FAILURE 1 tablet2 TIMES DAILY1 tablet 2 TIMES DAILY (route: oral)Med Classification: Cardiovascular Therapy Agentsfurosemide 20 mg oalepk3137-34-37 00:00:00Yes [id number] RETENTION1 tabletDAILY1 tablet DAILY (route: oral)Med Classification: Cardiovascular Therapy Agentsgabapentin 600 mg xjdkuu4642-21-07 00:00:[id number] PAIN1.5 tablet3 TIMES DAILY1.5 tablet 3 TIMES DAILY (route: oral)Med Classification: Central Nervous System Agentshydrocortisone 10 mg pnxvyn9740-51-48 00:00:[id number] INSUFFICIENCY1 tablet2 TIMES DAILY1 tablet 2 TIMES DAILY (route: oral)Med Classification: Endocrine hydroxychloroquine 200 mg kqgian7395-75-74 00:00:[id number] RASH1 tablet2 TIMES DAILY1 tablet 2 TIMES DAILY (route: oral)Med Classification: Anti- Infective Agentsipratropium 0.5 mg-albuterol 2.5 mg/2.5 mL solution for ejqfulelxwlp3455-09-47 00:00:[id number] instructions4 TIMES DAILYPer instructions 4 TIMES DAILY (route: inhalation)Med Classification: Respiratory Therapy Agentslevothyroxine 175 mcg aupbwq1951-79-36 00:00:00Yes [id number] tabletDAILY1 tablet DAILY (route: oral)Med Classification: Endocrineloratadine 10 mg uckouy7186-09-37 00:00:[id number] tabletDAILY1 tablet DAILY (route: oral)Med Classification: Respiratory Therapy Agentslorazepam 0.5 mg jopgjo3036-31-31 00:00: 23:59:[id number] ANXIETY1 tabletEVERY 4 HOURS1 tablet EVERY 4 HOURS (route: oral)Med Classification: Central Nervous System Agentsmelatonin 10 mg jjsyhu1807-55-23 00:00:41Jhk8075001107HLINR6.5 tabletBEDTIME0.5 tablet BEDTIME (route: oral)Med Classification: Central Nervous System Agentsmetoprolol succinate ER 50 mg tablet,extended release 24 ul3168-82-54 00:00:[id number] PRESSURE1 tabletDAILY1 tablet DAILY (route: oral)Med Classification: Cardiovascular Therapy AgentsOcean Blue Hurt-3 Plus D3 350 mg-1,000 unit geixyug8648-74-20 00:00:[id number] capsuleDAILY1 capsule DAILY (route: oral)Med Classification: Cardiovascular Therapy Agentsomeprazole 40 mg capsule,delayed aufbyvi3022-58-95 00:00:[id number] capsuleDAILY1 capsule DAILY (route: oral)Med Classification: Gastrointestinal Therapy Agentspravastatin 20 mg rpelsp2402-88-50 00:00:[id number] tabletDAILY1 tablet DAILY (route: oral)Med Classification: Cardiovascular Therapy Agentsprimidone 50 mg xccdxl1132-65-82 00:00:[id number] tabletBEDTIME1 tablet BEDTIME (route: oral)Med Classification: Central Nervous System Agentstriamcinolone acetonide 0.1 % topical mxwpyrnz9185-03-58 00:00:[id number] instructions2 TIMES DAILYPer instructions 2 TIMES DAILY (route: topical)Med Classification: DermatologicalVitamin D3 25 mcg (1,000 unit) djetbym3828-80-38 00:00:[id number] capsuleDAILY1 capsule DAILY (route: oral)Med Classification: Electrolyte Balance-Nutritional Productsoxygen gas for mvlfknbkqf2415-92-73 00:00:[id number] BLOOD SATURATION1 LiterO2 - CONTINUOUS1 Liter O2 - CONTINUOUS (route: inhalation)Med Classification: Medical Supplies and Durable Medical Equipment (DME)escitalopram 10 mg oypifk7143-24-03 00:00:[id number] tabletDAILY1 tablet DAILY (route: oral)Med Classification: Central Nervous System Agentshydroxyzine HCl 25 mg tablet 2024-12-21 00:00:[id number] tabletEVERY 8 HOURS1 tablet EVERY 8 HOURS (route: oral)Med Classification: Central Nervous System Agents Immunizations Ordered Immunization Name Filled Immunization Name Date Status Comments Refusal Reason PNEUMOCOCCAL (PPV), PPV 2021-10-25 00:00:00 Vital Signs Vital Name Observation Time Observation Value Commen ts Temperature 2024-12-23 11:20:00.000 97.2 [degF] Nrvflaixfcy6632-15-10 11:57:00.64175.6 [degF]Eyudtpfzlln0607-78-37 11:26:00.000 97.4 [degF]Lmxcssyirdj5022-82-63 09:59:00.06876.6 [degF]Xdtdlyjihot8852-21-00 12:58:00.38937.3 [degF]Yfwjjhuixfz7965-06-07 11:15:00.92866.2 [degF]Temperature 2024-12-15 12:26:00.90476 [degF]Uuqqllusoht1862-60-50 09:25:00.22086.6 [degF] Lzdwutvvyvb7053-61-36 15:55:00.16555.6 [degF]Ofscghiilnv4756-83-86 12:39:00.000 98.7 [degF]BMI (%)2024-12-09 11:04:00.12932 kg/s5Jjekvg3072-72-28 11:04:00.99673 [in_us]Zgwwb1717-86-71 11:20:00.11298 /aclBmuas0872-43-07 11:57:00.26182 /min Mtpht8762-45-30 11:26:00.29770 /fcjTljjh5780-63-24 09:59:00.42418 /minPulse 2024-12-17 12:58:00.95294 /wnwJssjf5991-13-76 11:15:00.43750 /odiXjkdt8324-81-80 12:26:00.90272 /tklGzayx9183-79-91 09:25:00.47093 /oybMunla5781-79-22 15:55:00.33975 /wugZxybv1302-12-05 12:39:00.00993 /qmgKeliw3207-26-07 11:04:00.25848 /minO2 Saturation (%)2024-12-23 11:20:00.67771 %O2 Saturation (%) 2024-12-21 11:57:00.56557 %O2 Saturation (%)2024-12-21 11:26:00.80092 %O2 Saturation (%)2024-12-21 09:59:00.23551 %O2 Saturation (%)2024-12-17 12:58:00.36162 %O2 Saturation (%)2024-12-17 11:15:00.84339 %O2 Saturation (%) 2024-12-15 12:26:00.72064 %O2 Saturation (%)2024-12-15 09:25:00.32930 %O2 Saturation (%)2024-12-14 15:55:00.58819 %O2 Saturation (%)2024-12-11 12:39:00.02726 %O2 Saturation (%)2024-12-09 11:04:00.39741 %Respirations 2024-12-23 11:20:00.97887 /rzuQvfbwxdyadwy7788-35-52 11:57:00.60247 /min Uqctnggkkoie6122-10-87 11:26:00.66266 /oxmIsylsxftbwxj4927-56-94 09:59:00.16551 /wlyWmporcfkyyei2095-64-49 12:58:00.09428 /vxqVrjctjdtbzqd1266-50-61 11:15:00.27378 /kswNqanldfhxugp0457-42-96 12:26:00.21363 /minRespirations 2024-12-15 09:25:00.23086 /jijNnugqpxddpvn0387-07-19 15:55:00.87169 /min Yfgucyhudufz9434-61-67 12:39:00.79896 /awkGrcsoewqrvoh8664-83-85 11:04:00.87117 /minWeight (lbs)2024-12-21 09:59:00.391691.2 [lb_av]Weight (lbs)2024-12-15 12:26:00.612987 [lb_av]Weight (lbs)2024-12-09 11:04:00.731355.1 [lb_av]Systolic Blood Jzfdjjms9415-98-38 11:20:00.166546 mm[Hg]Systolic Blood Nakhkjoo2046-17-63 11:57:00.783642 mm[Hg]Systolic Blood Nwsndvpg0180-31-45 11:34:00.297296 mm[Hg] Systolic Blood Wduzroje9735-75-52 09:59:00.569316 mm[Hg]Systolic Blood Pressure 2024-12-17 12:58:00.551819 mm[Hg]Systolic Blood Vcihjnnd0115-09-37 11:15:00.000 136 mm[Hg]Systolic Blood Myhvbhgl1162-72-72 12:26:00.178059 mm[Hg]Systolic Blood Vmzeynfv2859-69-72 09:25:00.529304 mm[Hg]Systolic Blood Fzsbpczj3823-97-61 15:55:00.729627 mm[Hg]Systolic Blood Hithvlxt3675-90-29 12:39:00.522039 mm[Hg] Systolic Blood Xepexrot5298-19-47 11:04:00.746950 mm[Hg]Diastolic Blood Pressure 2024-12-23 11:20:00.61522 mm[Hg]Diastolic Blood Iegdbktu8080-07-41 11:57:00.000 60 mm[Hg]Diastolic Blood Vtwxhtjq7873-06-99 11:34:00.17550 mm[Hg]Diastolic Blood Xlfwridc8549-23-43 09:59:00.53430 mm[Hg]Diastolic Blood Hcsqhbve1241-52-30 12:58:00.84578 mm[Hg]Diastolic Blood Numqmnlp1541-09-78 11:15:00.51767 mm[Hg] Diastolic Blood Zrmypfbn1386-43-13 12:26:00.22249 mm[Hg]Diastolic Blood Pressure 2024-12-15 09:25:00.95205 mm[Hg]Diastolic Blood Mjuwylzk6897-83-84 15:55:00.000 62 mm[Hg]Diastolic Blood Naxrnscn8277-81-97 12:39:00.08320 mm[Hg]Diastolic Blood Oqrpfcus2435-13-57 11:04:00.07789 mm[Hg] Plan of Treatment Planned Activity Planned [...] J44.1 COPD WITH EXACERBATION. FAX RESULTS TO [facility]. [code = SKILLED NURSE TO OBTAINBLOOD SPECIMEN FOR CBC WITH DIFF AND BMP VIA VENIPUNCTURE ON 12/15/24. DIAGNOSIS: J44.1 COPD WITH EXACERBATION. FAX RESULTS TO [facility].]Future Scheduled TestPHYSICAL THERAPIST TO EVALUATE/ASSESS AND [...] CHANGE IN CONDITION (SCIC)AND DISCHARGE. HOME HEALTH RESPOOLER MAY PROVIDE CARE RECOMMENDATIONS NEEDED ON NEW,EXISTING [...] IN CONDITION (SCIC) AND DISCHARGE. HOME HEALTH RESPOOLER MAY PROVIDE CARE RECOMMENDATIONS NEEDED ON NEW, [...] AND ADMIT TO AN INPATIENT FACILITY DURING [id number] CERTIFICATION PERIOD. ADDITIONAL VISITS MAY BE REQUIRED [...] End Date/Time Encounter Type Admission Type Attending [facility] Care Department Encounter ID Discharge Date Discharge Status Discharge Condition Discharge Reason Percent Goals Met 2024-12-09 00:00:00 2025-02-06 00:00:00 Outpatient CHELI BOUCHER [id number]
--- OUTSIDE RECORDS SUMMARY | 2025-02-05 20:00 | XMS_ITS | Clinical Summary ---
Author Organization Unknown Care Team Providers Care Portfolio Assistant Name Role Phone ISIDRO JOSEPH Unavailable Unavailable NISH RN, SULY Unavailable Unavailable BROOKE DIVE SUPERVISOR, REMY Unavailable Unavailable COPIRMA SADE, VALERY Unavailable Unavailable GOSCHE OT, APPLE Unavailable Unavailable ANNE PT, CINTHYA Unavailable Unavailable FINN PT, JOHANNA Unavailable Unavailable SHERIF SILVER STEWARD, SHA Unavailable Unavailabl juanjo GRANADOS RN, CHELI Unavailable Unavailabl juanjo SCHULTZ RN, EVERARDO Unavailable Unavailable BESSIE STRE[address], OLIVA Unavailable Unavailable MARYANA DIVE SUPERVISOR, MALU Unavailable Unavailable VELOZ DIVE SUPERVISOR, LISSETH Unavailable Unavailabl e Payers Payer Name Policy Type Policy Number Effective Date Expira tion Date [facility] ([facility]) Problems Condition Name Condition Details Condition Category Status Onset Date Resolution Date Last Treatment Date Treating Clinician Comments COVID-19 [id number] 00:00:00HYPERTENSIVE HEART DISEASE WITH HEART FAILUREActive 2024-12-08 00:00: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 Ljyasm9354-64-49 00:00:00MORBID (SEVERE) OBESITY DUE TO EXCESS CALORIESActive 2024-12-03 21:47:00TYPE 2 DIABETES MELLITUS WITH DIABETIC CATARACTActive 2024-12-03 21:47:00TYPE 2 DIABETES MELLITUS WITH DIABETIC NEUROPATHY, UNSPActive 2024-12-03 21:47:00CHRONIC OBSTRUCTIVE PULMONARY DISEASE W (ACUTE) EXACERBATION Ujxjwl7043-02-39 00:00:00ACUTE RESPIRATORY FAILURE WITH UUPSNMEVttzoa4255-44-85 21:47:00UNSPECIFIED ADRENOCORTICAL ECROOOVSCNMJPQumlqe7961-21-30 21:47:00OTHER RSRBSLJJWTQBNJOZBuumhv5812-29-48 21:47:00GENERALIZED ANXIETY DISORDERActive 2024-12-03 21:47:00TRIGEMINAL ZWIKYYYSHLeeaax8858-57-66 00:00:00OTHER CHRONIC YUACNqvwjh0607-67-51 00:00:00INTERVERTEBRAL DISC DISORDERS W RADICULOPATHY, LUMBAR DZMQORUntttr6218-88-92 00:00:00SPINAL STENOSIS, CERVICAL REGIONActive 2024-12-09 00:00:00OTHER SPONDYLOSIS WITH RADICULOPATHY, LUMBOSACRAL REGION Lhcdbz6042-77-28 00:00:00OTHER SPONDYLOSIS WITH RADICULOPATHY, CERVICAL REGION Kmhwlo9020-11-17 00:00:00SPINAL STENOSIS, LUMBAR REGION WITH NEUROGENIC JOZDAXWMDONILlsasy2573-99-00 00:00:00HYPOTHYROIDISM, JZFXJSAEGUWYeyzba8160-33-73 00:00:00HYPERLIPIDEMIA, AMMHCHWKPGCKpvron2963-20-62 00:00:00FIBROMYALGIAActive 2024-12-09 00:00:00POLYOSTEOARTHRITIS, NNSKQDSRRDSRfkydw3364-21-32 00:00:00 DEPENDENCE ON SUPPLEMENTAL ZXZNUYOnqnjo1235-63-27 00:00:00LONG TERM (CURRENT) USE OF INOIAHBPwymlo6904-35-36 00:00:00LONG TERM (CURRENT) USE OF SYSTEMIC RBFEXLYKWrxauq8341-97-18 00:00:00 Allergies, Adverse Reactions, Alerts Allergy Name [...] Comments Components acetaminophen 500 mg capsule 2024-12-09 00:00:[id number] capsuleEVERY 6 HOURS2 capsule EVERY 6 HOURS (route: oral)Med Classification: Analgesic, Anti-inflammatory or Antipyreticalbuterol sulfate HFA 90 mcg/actuation aerosol thssblg7069-07-60 00:00:[id number] puff4 TIMES DAILY2 puff 4 TIMES DAILY (route: inhalation)Med Classification: Respiratory Therapy Agentsaspirin 81 mg tablet,delayed hstygta6419-71-70 00:00:[id number] tabletDAILY1 tablet DAILY (route: oral)Med Classification: Hematological AgentsB Complex 1 (with folic acid) 0.4 mg ixdzzf0130-17-78 00:00:[id number] tabletDAILY1 tablet DAILY (route: oral)Med Classification: Electrolyte Balance- Nutritional ProductsColace 100 mg jtekopr3975-16-89 00:00:[id number] CONSTIPATION1 capsuleDAILY1 capsule DAILY (route: oral)Med Classification: Gastrointestinal Therapy Agentsdiclofenac sodium 75 mg tablet,delayed release 2024-12-09 00:00:867085-63-41 13:56:[id number] tablet2 TIMES DAILY1 tablet 2 TIMES DAILY (route: oral)Med Classification: Analgesic, Anti- inflammatory or Antipyreticdicyclomine 20 mg gzgdrs7099-76-09 00:00:00Yes [id number] tablet3 TIMES DAILY1 tablet 3 TIMES DAILY (route: oral)Med Classification: Gastrointestinal Therapy AgentsElderberry Immune Health 45 mg-4 mg-50 mg chewable mzhmru1435-47-72 00:00:[id number] tabletDAILY1 tablet DAILY (route: oral)Med Classification: Electrolyte Balance-Nutritional ProductsEntresto 49 mg-51 mg bkabbh6551-39-82 00:00:[id number] FAILURE 1 tablet2 TIMES DAILY1 tablet 2 TIMES DAILY (route: oral)Med Classification: Cardiovascular Therapy Agentsfurosemide 20 mg cpeqmt0203-71-26 00:00:00Yes [id number] RETENTION1 tabletDAILY1 tablet DAILY (route: oral)Med Classification: Cardiovascular Therapy Agentsgabapentin 600 mg nshxvz6788-10-88 00:00:[id number] PAIN1.5 tablet3 TIMES DAILY1.5 tablet 3 TIMES DAILY (route: oral)Med Classification: Central Nervous System Agentshydrocortisone 10 mg uqfqxi6202-17-03 00:00:[id number] INSUFFICIENCY1 tablet2 TIMES DAILY1 tablet 2 TIMES DAILY (route: oral)Med Classification: Endocrine hydroxychloroquine 200 mg widfwa4365-81-10 00:00:[id number] RASH1 tablet2 TIMES DAILY1 tablet 2 TIMES DAILY (route: oral)Med Classification: Anti- Infective Agentsipratropium 0.5 mg-albuterol 2.5 mg/2.5 mL solution for gizofshpqrtm7763-84-05 00:00:[id number] instructions4 TIMES DAILYPer instructions 4 TIMES DAILY (route: inhalation)Med Classification: Respiratory Therapy Agentslevothyroxine 175 mcg lokqkv0535-25-38 00:00:00Yes [id number] tabletDAILY1 tablet DAILY (route: oral)Med Classification: Endocrineloratadine 10 mg qcnepm0870-43-42 00:00:[id number] tabletDAILY1 tablet DAILY (route: oral)Med Classification: Respiratory Therapy Agentslorazepam 0.5 mg disock9709-33-90 00:00: 23:59:[id number] ANXIETY1 tabletEVERY 4 HOURS1 tablet EVERY 4 HOURS (route: oral)Med Classification: Central Nervous System Agentsmelatonin 10 mg ctexrh4945-76-53 00:00:[id number] tabletBEDTIME0.5 tablet BEDTIME (route: oral)Med Classification: Central Nervous System Agentsmetoprolol succinate ER 50 mg tablet,extended release 24 gv4748-57-90 00:00:[id number] PRESSURE1 tabletDAILY1 tablet DAILY (route: oral)Med Classification: Cardiovascular Therapy AgentsOcean Blue [place]-3 Plus D3 350 mg-1,000 unit yamqwad1861-13-18 00:00:[id number] capsuleDAILY1 capsule DAILY (route: oral)Med Classification: Cardiovascular Therapy Agentsomeprazole 40 mg capsule,delayed irpxajm7703-04-21 00:00:[id number] capsuleDAILY1 capsule DAILY (route: oral)Med Classification: Gastrointestinal Therapy Agentspravastatin 20 mg wkkgmb6441-39-76 00:00:[id number] tabletDAILY1 tablet DAILY (route: oral)Med Classification: Cardiovascular Therapy Agentsprimidone 50 mg agrtku8202-56-45 00:00:[id number] tabletBEDTIME1 tablet BEDTIME (route: oral)Med Classification: Central Nervous System Agentstriamcinolone acetonide 0.1 % topical ltxfsqns8663-13-86 00:00:[id number] instructions2 TIMES DAILYPer instructions 2 TIMES DAILY (route: topical)Med Classification: DermatologicalVitamin D3 25 mcg (1,000 unit) xfiwtej1700-60-26 00:00:[id number] capsuleDAILY1 capsule DAILY (route: oral)Med Classification: Electrolyte Balance-Nutritional Productsoxygen gas for wshkupooai5272-97-42 00:00:[id number] BLOOD SATURATION1 LiterO2 - CONTINUOUS1 Liter O2 - CONTINUOUS (route: inhalation)Med Classification: Medical Supplies and Durable Medical Equipment (DME)escitalopram 10 mg vztkbh1805-47-16 00:00:[id number] tabletDAILY1 tablet DAILY (route: oral)Med Classification: Central Nervous System Agentshydroxyzine HCl 25 mg tablet 2024-12-21 00:00:[id number] tabletEVERY 8 HOURS1 tablet EVERY 8 HOURS (route: oral)Med Classification: Central Nervous System Agents Immunizations Ordered Immunization Name Filled Immunization Name Date Status Comments Refusal Reason PNEUMOCOCCAL (PPV), PPV 2021-10-25 00:00:00 Vital Signs Vital Name Observation Time Observation Value Commen ts Temperature 2024-12-23 11:20:00.000 97.2 [degF] Wddrfjfpqqa5817-63-91 11:57:00.61377.6 [degF]Fsnhgitmhft0621-75-75 11:26:00.000 97.4 [degF]Jsahixtkwce2257-31-17 09:59:00.84107.6 [degF]Swkoqyntxih6740-53-82 12:58:00.74256.3 [degF]Gqfibewtwuv5498-58-54 11:15:00.48750.2 [degF]Temperature 2024-12-15 12:26:00.39576 [degF]Namegnegvgi8979-27-72 09:25:00.76548.6 [degF] Fpoabokiwva3197-53-43 15:55:00.00194.6 [degF]Dthyeysrwwt5456-36-03 12:39:00.000 98.7 [degF]BMI (%)2024-12-09 11:04:00.92681 kg/m8Ocuhoh7822-52-81 11:04:00.20862 [in_us]Hunvh4649-97-59 11:20:00.82053 /rvkXiwlp8588-57-85 11:57:00.38042 /min Ppnlc3555-82-94 11:26:00.32040 /nxkBghry8215-65-89 09:59:00.52631 /minPulse 2024-12-17 12:58:00.06312 /qjdCciwj0084-97-62 11:15:00.29631 /rzbTghda4329-22-13 12:26:00.28689 /gxeSggqb2014-16-66 09:25:00.37900 /yalHizsk2473-60-00 15:55:00.83274 /lzuHdvak1621-61-88 12:39:00.36890 /qhkWaqga5693-64-52 11:04:00.07386 /minO2 Saturation (%)2024-12-23 11:20:00.04255 %O2 Saturation (%) 2024-12-21 11:57:00.91467 %O2 Saturation (%)2024-12-21 11:26:00.40974 %O2 Saturation (%)2024-12-21 09:59:00.16752 %O2 Saturation (%)2024-12-17 12:58:00.35676 %O2 Saturation (%)2024-12-17 11:15:00.25930 %O2 Saturation (%) 2024-12-15 12:26:00.81894 %O2 Saturation (%)2024-12-15 09:25:00.21294 %O2 Saturation (%)2024-12-14 15:55:00.26364 %O2 Saturation (%)2024-12-11 12:39:00.74887 %O2 Saturation (%)2024-12-09 11:04:00.21044 %Respirations 2024-12-23 11:20:00.61689 /ybmLhzheggfolij2762-01-10 11:57:00.45032 /min Xsmvbnrsixtq1353-99-19 11:26:00.78297 /ilwJumkfwdhsuhv2661-56-06 09:59:00.34144 /zvaHtwaaoipjkmd3626-24-53 12:58:00.94451 /sleCxfojkfuyqtd1732-61-25 11:15:00.23509 /eozAvjeqjockcku5269-25-77 12:26:00.99596 /minRespirations 2024-12-15 09:25:00.44491 /cnySkhrsknncyoj5320-62-54 15:55:00.20748 /min Dvimsavgmjfm5324-39-78 12:39:00.11586 /zckXteskzfxvqfd9341-42-24 11:04:00.78487 /minWeight (lbs)2024-12-21 09:59:00.044812.2 [lb_av]Weight (lbs)2024-12-15 12:26:00.149964 [lb_av]Weight (lbs)2024-12-09 11:04:00.942980.1 [lb_av]Systolic Blood Catxraip5143-42-34 11:20:00.738460 mm[Hg]Systolic Blood Vofgxzfz1012-49-24 11:57:00.400066 mm[Hg]Systolic Blood Favtxphu7361-97-57 11:34:00.267467 mm[Hg] Systolic Blood Vcupakgk9553-84-19 09:59:00.841810 mm[Hg]Systolic Blood Pressure 2024-12-17 12:58:00.628351 mm[Hg]Systolic Blood Pebuguxa0585-66-74 11:15:00.000 136 mm[Hg]Systolic Blood Zwflgbuu2489-78-43 12:26:00.039760 mm[Hg]Systolic Blood Lnprlqrl9277-14-36 09:25:00.828888 mm[Hg]Systolic Blood Kkewpnjp8178-97-01 15:55:00.018613 mm[Hg]Systolic Blood Oosbesvo3689-22-55 12:39:00.903280 mm[Hg] Systolic Blood Yxmvivqz4584-67-00 11:04:00.588469 mm[Hg]Diastolic Blood Pressure 2024-12-23 11:20:00.41943 mm[Hg]Diastolic Blood Sfwhyhxw6457-92-90 11:57:00.000 60 mm[Hg]Diastolic Blood Laimqteq8747-83-14 11:34:00.40332 mm[Hg]Diastolic Blood Qhcgdulr7871-24-09 09:59:00.26788 mm[Hg]Diastolic Blood Rodxwatn4276-10-82 12:58:00.82787 mm[Hg]Diastolic Blood Viofmckk7919-98-95 11:15:00.13506 mm[Hg] Diastolic Blood Ozgrbbib5633-78-21 12:26:00.82604 mm[Hg]Diastolic Blood Pressure 2024-12-15 09:25:00.70115 mm[Hg]Diastolic Blood Eylxkluu8279-98-75 15:55:00.000 62 mm[Hg]Diastolic Blood Iawdkbcc6446-08-09 12:39:00.53542 mm[Hg]Diastolic Blood Nfhkixsa6121-48-02 11:04:00.58578 mm[Hg] Plan of Treatment Planned Activity Planned [...] J44.1 COPD WITH EXACERBATION. FAX RESULTS TO [facility]. [code = SKILLED NURSE TO OBTAINBLOOD SPECIMEN FOR CBC WITH DIFF AND BMP VIA VENIPUNCTURE ON 12/15/24. DIAGNOSIS: J44.1 COPD WITH EXACERBATION. FAX RESULTS TO [facility].]Future Scheduled TestPHYSICAL THERAPIST TO EVALUATE/ASSESS [...] CHANGE IN CONDITION (SCIC)AND DISCHARGE. HOME HEALTH SHIRRING MACHINE OPERATOR AUTOMATIC MAY PROVIDE CARE RECOMMENDATIONS NEEDED ON NEW,EXISTING [...] IN CONDITION (SCIC) AND DISCHARGE. HOME HEALTH SHIRRING MACHINE OPERATOR AUTOMATIC MAY PROVIDE CARE RECOMMENDATIONS NEEDED ON NEW, [...] AND ADMIT TO AN INPATIENT FACILITY DURING [id number] CERTIFICATION PERIOD. ADDITIONAL VISITS MAY BE REQUIRED [...] ABILITY TO PROPERLY MANAGE DEPRESSION BY 01/07/2025 Progress Notes Progress Notes <paragraph>[Visit Date: 2024 by OLIVA LA RN]:</paragraph><paragraph>CURRENT STATUS: PATIENT WAS ALERT AND ORIENTED TO PERSON PLACE TIME AND DAY. PATIENT WAS RESTING ON THE EDGE OF HER BED. PATIENT WAS TEARFUL ABOUT HER DECLINING HEALTH. PATIENT HAD A HEADACHE THAT STARTED EARLY THIS MORNING. NURSE REPLCED NASAL CANNULA HER OLD ONE WAS PLUGGED ON ONE SIDE. PATIENT WAS ABLE TO RECOVER WELL. </paragraph><paragraph>SINCE LAST IN-HOME VISIT: NO CHANGES TO MEDICATIONS OR ORDERS. NO FALLS OR APPOINTMENTS SINCE LAST VISIT.</paragraph><paragraph>SKILLED NEED: CARDIOPULMONARY ASSESSMENT, OXYGEN THERAPY EDUCATION, MEDICATION AND DIET EDUCATION</paragraph><paragraph>RESPONSE TO TODAY S VISIT: PATIENT TOLORATED WELL WITHOUT PAIN</paragraph><paragraph>PLAN FOR NEXT VISIT: PATIENT IS SCHEDULED WITH PULMONARY IN DECEMBER. CONTINUE CARDIOPULMONARY ASSESSMENT AND EDUCATION</paragraph> Encounters Start Date/Time End Date/Time Encounter Type Admission Type Attending Clinicians Care Facility Care Department Encounter ID Discharge Date Discharge Status Discharge Condition Discharge Reason Percent Goals Met 2024-12-09 00:00:00 2025-02-06 00:00:00 Outpatient CHELI BOUCHER [id number]
== END 2024-12-29 14:13 | DRG 291 ==
LOC: ER 09:01 → MS 12-27 19:17
PROVIDERS: Emergency Medicine; Hospitalist; Admitting Provider Internal Medicine; Emergency Provider Internal Medicine; PCP Family Medicine; Visit Provider Internal Medicine
DX: I11.0 Hypertensive heart disease with heart failure (principal); I50.33 Acute on chronic diastolic (congestive) heart failure; E27.40 Unspecified adrenocortical insufficiency; I16.0 Hypertensive urgency; Z99.81 Dependence on supplemental oxygen; R06.00 Dyspnea, unspecified; E66.01 Morbid (severe) obesity due to excess calories; I27.20 Pulmonary hypertension, unspecified; J98.4 Other disorders of lung; Z86.16 Personal history of COVID-19; I44.7 Left bundle-branch block, unspecified; R53.1 Weakness; R53.83 Other fatigue; E87.6 Hypokalemia; Z79.82 Long term (current) use of aspirin; Z68.39 Body mass index [BMI] 39.0-39.9, adult; Z96.651 Presence of right artificial knee joint; M25.552 Pain in left hip; M54.9 Dorsalgia, unspecified; R11.10 Vomiting, unspecified; Z79.52 Long term (current) use of systemic steroids; G47.00 Insomnia, unspecified; K59.00 Constipation, unspecified; M62.58 Muscle wasting and atrophy, not elsewhere classified, other site
CPT/HCPCS: 36415; 71046; 71260; 80048; 80053; 80061; 81001; 83735; 83880; 84443; 84484; 85025; 85378; 87040; 93005; 93306; 94761; 96365; 96366; 96372; 96375; 96376; 97110; 97161; 97165; 97530; 97535; 99285; G0378; J0360; J1650; J1938; J2405; J2765; J8499; Q9967